=== PATIENT | female | born 1950 | race Caucasian/White ===

== ENCOUNTER 2018-06-29 01:29 | Outpatient (CLI) | payer MEDICARE, OTHER, SELFPAY ==
--- NOTE | 2018-06-29 10:42 | DI.MAMMO_ITS ---
SYMPTOM/DIAGNOSIS: SCREENING, Z12.31 MAMMOGRAMS: Mammograms were interpreted according to the usual protocol including computer analysis with CAD system, tomosynthesis and C view imaging. Comparison is made with exams from [id number]. The breasts are composed of extremely dense fibroglandular tissue, breast density, Category D. No suspicious masses or suspicious microcalcifications are seen. There has been no significant change. IMPRESSION: Category 1D, negative mammogram. Yearly screening mammography is recommended. [facility] ASSESSMENT OF FINDINGS: Negative. Category 1. Patient will receive a letter notifying them of these results. BI-RADS category D. The breasts are extremely dense, which lowers the sensitivity of mammography.
== END 2018-06-29 01:49 ==
PROVIDERS: PCP Family Medicine; Visit Provider Family Medicine
DX: Z12.31 Encounter for screening mammogram for malignant neoplasm of breast (principal)
CPT/HCPCS: 77063; 77067

== ENCOUNTER 2018-06-29 02:29 | Outpatient (CLI) | payer MEDICARE, OTHER, SELFPAY ==
[2018-06-29 12:44] LABS: ALT 21 U/L (12-78); AST 16 U/L (15-37); Albumin 3.9 g/dL (3.4-5.0); Alkaline Phosphatase 81 U/L (46-116); Anion Gap 7.7 mmol/L (3-11); BUN 15 mg/dL (7-18); Bilirubin, Total 0.3 mg/dL (0.2-1.0); CO2 29.3 mmol/L (21.0-32.0); CREATININE 1.02 mg/dL (0.55-1.02); Calcium 9.7 mg/dL (8.5-10.1); Chloride 98 mmol/L (98-107); Estimated GFR 53.58 (mL/min/1.73m2); Glucose 98 mg/dL (70-100); Potassium 4.1 mmol/L (3.5-5.1); Sodium 135 mmol/L (136-145); Total Protein 7.2 g/dL (6.4-8.2)
== END 2018-06-29 02:49 ==
PROVIDERS: PCP Family Medicine; Visit Provider Family Medicine
DX: I10 Essential (primary) hypertension (principal)
CPT/HCPCS: 36415; 80053

== ENCOUNTER 2019-06-11 00:27 | Outpatient (CLI) | payer MEDICARE, OTHER, SELFPAY ==
[2019-06-11 13:34] LABS: HGB 12.5 g/dL (12.0-15.5); Mean Corp. HGB Concentration 32.9 g/dL (32.0-36.0); Mean Corpuscular Hemoglobin 31.6 pg (27.0-33.0); Mean Platelet Volume 9.9 fL (8.0-11.0); Platelet Count 394 x1000/uL (130-400); RBC 3.96 m/cumm (4.00-5.20); RBC Distribution Width 13.2 % (11.7-14.6); White Blood Cell Count 11.19 k/cumm (4.4-10.8)
[2019-06-11 15:49] LABS: ALT 10 U/L (14-59); AST 17 U/L (15-37); Albumin 3.9 g/dL (3.4-5.0); Alkaline Phosphatase 74 U/L (46-116); Anion Gap 12.2 mmol/L (3-11); BUN 19 mg/dL (7-18); Bilirubin, Total 0.2 mg/dL (0.2-1.0); CO2 28.8 mmol/L (21.0-32.0); CREATININE 1.02 mg/dL (0.55-1.02); Calcium 9.5 mg/dL (8.5-10.1); Calculated LDL 108 mg/dL; Chloride 99 mmol/L (98-107); Cholesterol 226 mg/dL (<200); Estimated GFR 53.42 (mL/min/1.73m2); Glucose 94 mg/dL (74-106); HDL Cholesterol 74 mg/dL (40-60); Potassium 3.8 mmol/L (3.5-5.1); Sodium 140 mmol/L (136-145); Triglyceride 222 mg/dL (<150)
== END 2019-06-11 00:47 ==
PROVIDERS: PCP Family Medicine; Visit Provider Family Medicine
DX: I10 Essential (primary) hypertension (principal); K29.70 Gastritis, unspecified, without bleeding
CPT/HCPCS: 80053; 80061; 85027

== ENCOUNTER 2019-07-13 00:50 | Outpatient (CLI) | payer MEDICARE, OTHER, SELFPAY ==
--- NOTE | 2019-07-13 13:15 | DI.MAMMO_ITS ---
EXAM: MG MAMMO SCREENING CLINICAL HISTORY: screening Z12.39. TECHNIQUE: Bilateral full field digital CC and MLO mammographic images were obtained with 3D tomosyn thesis and utilizing computer aided detection (CAD). COMPARISON: 2010 through 2018 FINDINGS: Breast Density - Category D - Extremely dense Masses/Architectural Distortion: None seen. Microcalcifications: No suspicious pleomorphic-type are seen. Skin Thickening/Nipple Retraction: None. IMPRESSION: 1. No significant interval change with no specific features of malignancy noted. 2. Unless there is more urgent need, annual screening mammography is recommended, as per [place] [employer] guidelines. ACR BI-RAD Category- 1 Negative Breast Density Category D: The mammogram demonstrates the patient's breast tissue is dense. Dense tory ast tissue is very common and is not abnormal but dense breast tissue can make it harder to find canc er on a mammogram. Also, dense breast tissue may increase their breast cancer risk. This information about the result of the mammogram report was provided to the patient to raise their awareness. Use th is report when you speak with the patient about their risks for breast cancer, which includes their f amily history. At that time, you may recommend for more screening tests (Ultrasound or MRI) as they m ight be useful based on their risk. A negative radiographic report should not delay biopsy if a dominant or clinically suspicious mass is present. Up to ten percent of cancers are not identified on mammography. A negative report may reinforce clinical impression. Adenosis and dense breasts may obscure an underlying neoplasm. False positive reports average 6 to 10%.
== END 2019-07-13 01:10 ==
PROVIDERS: PCP Family Medicine; Visit Provider Family Medicine
DX: Z12.31 Encounter for screening mammogram for malignant neoplasm of breast (principal)
CPT/HCPCS: 77063; 77067

== ENCOUNTER 2020-06-13 03:18 | Outpatient (CLI) | payer MEDICARE, OTHER, SELFPAY ==
[2020-06-13 08:57] LABS: ALT 22 U/L (14-59); AST 15 U/L (15-37); Albumin 4.1 g/dL (3.4-5.0); Alkaline Phosphatase 82 U/L (46-116); Anion Gap 8.7 mmol/L (3-11); BUN 16 mg/dL (7-18); Bilirubin, Total 0.3 mg/dL (0.2-1.0); CO2 29.3 mmol/L (21.0-32.0); CREATININE 1.09 mg/dL (0.55-1.02); Calcium 9.9 mg/dL (8.5-10.1); Chloride 99 mmol/L (98-107); Estimated GFR 49.34 (mL/min/1.73m2); Glucose 96 mg/dL (74-106); Sodium 137 mmol/L (136-145); Total Protein 7.5 g/dL (6.4-8.2)
== END 2020-06-13 03:38 ==
PROVIDERS: PCP Family Medicine; Visit Provider Family Medicine
DX: I10 Essential (primary) hypertension (principal)
CPT/HCPCS: 36415; 80053

== ENCOUNTER 2020-07-14 02:43 | Outpatient (CLI) | payer MEDICARE, OTHER, SELFPAY ==
--- NOTE | 2020-07-14 07:00 | DI.MAMMO_ITS ---
EXAM: MAMMO SCREENING CLINICAL HISTORY: screening,Z12.39. TECHNIQUE: Bilateral full field digital CC and MLO mammographic images were obtained with 3D tomosyn thesis and utilizing computer aided detection (CAD). COMPARISON: Prior mammograms dating back to 2010, the most recent being June 2019. FINDINGS: The fibroglandular tissue is dense, this decreasing the sensitivity of the mammogram for finding in u nderlying lesions. Asymmetric tissue medially in the left breast is unchanged from prior studies. No new significant le ft breast findings. In the right breast there is a subtle suggestion of well-defined noncalcified nodular densities, best seen on MLO images and located approximately 2.5 centimetres in from the nipple. There are no spiculated masses nor malignant appearing microcalcification groups. Benign-appearing mi crocalcifications are again noted including a group posteriorly in the right breast. There is no sig nificant architectural distortion nor skin thickening-retraction. IMPRESSION: Dense bilateral fibroglandular tissue. No obvious radiographic evidence of malignancy in the left br east. Suggestion of nodular densities in the right breast as described above. Recommend breast ultr asound. BI-RADS Category 0 - Assessment Incomplete: Need additional imaging evaluation Breast Density - Category D - Extremely dense Breast density Category C or D implies that the patient has dense breast tissue. Dense breast tissue can make it harder to find cancer on a mammogram. Dense breast tissue is also associated with an incr eased risk of breast cancer. This information about the result of the mammogram report was provided to the patient to raise their awareness. Use this report when you speak with the patient about their risks for breast cancer, which includes their family history. At that time, you may recommend additional screening tests (Ultrasoun d or MRI) as these tests may add significant information. A negative radiographic report should not delay biopsy if a dominant or clinically suspicious mass is present. Up to ten percent of cancers are not identified on mammography. A negative report may reinforce clinical impression. Adenosis and dense breasts may obscure an underlying neoplasm. False positive reports average 6 to 10%. Patient will receive a letter notifying them of these results.
== END 2020-07-14 03:03 ==
PROVIDERS: PCP Family Medicine; Visit Provider Family Medicine
DX: Z12.31 Encounter for screening mammogram for malignant neoplasm of breast (principal); R92.8 Other abnormal and inconclusive findings on diagnostic imaging of breast
CPT/HCPCS: 77063; 77067

== ENCOUNTER 2020-07-18 01:02 | Outpatient (CLI) | payer MEDICARE, OTHER, SELFPAY ==
--- NOTE | 2020-07-18 | DI.MAMMO_ITS ---
EXAM: MG MAMMO SCREEN CALL BACK UNI and U/S breast RT limited CLINICAL HISTORY: F/U TO [facility] MAMMO, NODULAR DENSITY RT BREAST. TECHNIQUE: Craniocaudal and mediolateral oblique Full Field Digital Mammography views of the right b reast with Computer Aided Diagnosis followed by Tomosynthesis and right breast ultrasound. COMPARISON: Previous available for comparison. FINDINGS: Mammography/Tomosynthesis: Masses/Architectural Distortion: None seen. Microcalcifictions: No suspicious pleomorphic-type are seen. Skin Thickening/Nipple Retraction: None. Right breast US: Echotexture: Normal appearance of the glandular tissue. Shadowing: No suspicious foci. Cyst: None. Solid lesions: None seen. Ductal dilation: None. IMPRESSION: 1. No evidence of malignancy is noted. 2. Unless there is more urgent need, follow-up screening mammography is recommended, as per [place] [employer] guidelines. 3. The findings were discussed with the patient on the date of the examination. BI-RADS Category 1 - Negative Breast Density - Category D - Extremely dense Breast density Category C or D implies that the patient has dense breast tissue. Dense breast tissue can make it harder to find cancer on a mammogram. Dense breast tissue is also associated with an incr eased risk of breast cancer. This information about the result of the mammogram report was provided to the patient to raise their awareness. Use this report when you speak with the patient about their risks for breast cancer, which includes their family history. At that time, you may recommend additional screening tests (Ultrasoun d or MRI) as these tests may add significant information. A negative radiographic report should not delay biopsy if a dominant or clinically suspicious mass is present. Up to ten percent of cancers are not identified on mammography. A negative report may reinforce clinical impression. Adenosis and dense breasts may obscure an underlying neoplasm. False positive reports average 6 to 10%. Patient will receive a letter notifying them of these results.
== END 2020-07-18 01:03 | disposition home or self-care (01) ==
LOC: DI 01:04
PROVIDERS: PCP Family Medicine; Visit Provider Family Medicine
DX: R92.8 Other abnormal and inconclusive findings on diagnostic imaging of breast (principal)
CPT/HCPCS: 76642; 77063; 77067

== ENCOUNTER 2021-04-03 02:37 | Outpatient (CLI) | payer MEDICARE, OTHER, SELFPAY ==
[2021-04-03 08:15] LABS: HCT 37.3 % (36.0-46.0); HGB 11.9 g/dL (11.2-15.7); MCH 30.4 pg (27.0-33.0); MCHC 31.9 % (32.0-36.0); MCV 95.2 fL (80-95); MPV 9.7 fL (8.0-11.0); Platelet Count 373 10^3/uL (130-400); RBC 3.92 10^6/uL (3.93-5.22); RDW 12.8 % (11.7-14.6); RDW-SD 44.1 fL
[2021-04-03 09:34] LABS: ALT 20 U/L (14-59); AST 13 U/L (15-37); Alkaline Phosphatase 78 U/L (46-116); Anion Gap 7.9 mmol/L (3-11); BUN 16 mg/dL (7-18); Bilirubin, Total 0.3 mg/dL (0.2-1.0); CO2 29.1 mmol/L (21.0-32.0); CREATININE 1.2 mg/dL (0.55-1.02); Calcium 9.7 mg/dL (8.5-10.1); Chloride 102 mmol/L (98-107); Estimated GFR 44.04 (mL/min/1.73m2); Glucose 93 mg/dL (74-106); Sodium 139 mmol/L (136-145); Total Protein 7.1 g/dL (6.4-8.2)
== END 2021-04-03 02:38 | disposition home or self-care (01) ==
LOC: LBO 02:37
PROVIDERS: PCP Family Medicine; Visit Provider Family Medicine
DX: I10 Essential (primary) hypertension (principal); E78.5 Hyperlipidemia, unspecified
CPT/HCPCS: 36415; 80053; 85027

== ENCOUNTER 2021-04-10 00:42 | Outpatient (CLI) | payer MEDICARE, OTHER, SELFPAY ==
--- NOTE | 2021-04-10 08:19 | DI.RAD_ITS ---
Exam(s) XR SHOULDER RT COMPLETE 2+V EXAM: XR SHOULDER RT COMPLETE 2+V CLINICAL HISTORY: r shoulder pain,m25.511. TECHNIQUE: 2D digital imaging was performed. COMPARISON: No exams were available for comparison FINDINGS: BONES: No acute fracture or old fracture deformity is present. No bony destructive lesion is seen. JOINTS: No dislocation present. Mild spurring AC joint. Moderate spurring glenoid. Mild spurring m argin of humeral head. SOFT TISSUE: Normal. IMPRESSION: Degenerative changes. DATA REPOSITORY: RADIATION DOSE DELIVERED:
== END 2021-04-10 01:02 ==
PROVIDERS: PCP Family Medicine; Visit Provider Family Medicine
DX: M25.511 Pain in right shoulder (principal); M19.011 Primary osteoarthritis, right shoulder
CPT/HCPCS: 73030

== ENCOUNTER 2021-08-08 00:27 | Outpatient (CLI) | payer MEDICARE, OTHER, SELFPAY ==
--- NOTE | 2021-08-08 08:18 | DI.MAMMO_ITS ---
Exam(s) MAMMO SCREENING EXAM: MAMMO SCREENING CLINICAL HISTORY: screening,z12.39. TECHNIQUE: Bilateral full field digital CC and MLO mammographic images were obtained with 3D tomosyn thesis and utilizing computer aided detection (CAD). COMPARISON: 2011 through 2020 FINDINGS: Masses/Architectural Distortion: None seen. Microcalcifications: No suspicious pleomorphic-type are seen. Skin Thickening/Nipple Retraction: None. IMPRESSION: 1. No significant interval change with no specific features of malignancy noted. 2. Unless there is more urgent need, annual screening mammography is recommended, as per [place] [employer] guidelines. BI-RADS Category 1-negative Breast Density - Category D - extremely dense Breast Density Category D: The mammogram demonstrates the patient's breast tissue is dense. Dense tory ast tissue is very common and is not abnormal but dense breast tissue can make it harder to find canc er on a mammogram. Also, dense breast tissue may increase their breast cancer risk. This information about the result of the mammogram report was provided to the patient to raise their awareness. Use th is report when you speak with the patient about their risks for breast cancer, which includes their f amily history. At that time, you may recommend for more screening tests (Ultrasound or MRI) as they m ight be useful based on their risk. A negative radiographic report should not delay biopsy if a dominant or clinically suspicious mass is present. Up to ten percent of cancers are not identified on mammography. A negative report may reinforce clinical impression. Adenosis and dense breasts may obscure an underlying neoplasm. False positive reports average 6 to 10%.
== END 2021-08-08 00:47 ==
PROVIDERS: PCP Family Medicine; Visit Provider Family Medicine
DX: Z12.31 Encounter for screening mammogram for malignant neoplasm of breast (principal); R92.8 Other abnormal and inconclusive findings on diagnostic imaging of breast
CPT/HCPCS: 77063; 77067

== ENCOUNTER 2022-08-26 03:10 | Outpatient (CLI) | payer MEDICARE, SELFPAY ==
[2022-08-26 16:47] LABS: ALT 18 U/L (14-59); AST 16 U/L (15-37); Alkaline Phosphatase 89 U/L (46-116); BUN 25 mg/dL (7-18); Bilirubin, Total 0.2 mg/dL (0.2-1.0); CREATININE 1.2 mg/dL (0.55-1.02); Calcium 9.6 mg/dL (8.5-10.1); Chloride 100 mmol/L (98-107); Glucose 146 mg/dL (74-106); Potassium 4.5 mmol/L (3.5-5.1); Sodium 136 mmol/L (136-145); Total Protein 6.8 g/dL (6.4-8.2)
== END 2022-08-26 03:11 | disposition home or self-care (01) ==
LOC: LBO 03:10
PROVIDERS: PCP Family Medicine; Visit Provider Family Medicine
DX: I10 Essential (primary) hypertension (principal)
CPT/HCPCS: 36415; 80053

== ENCOUNTER 2022-09-04 02:19 | Outpatient (CLI) | payer MEDICARE, SELFPAY ==
--- NOTE | 2022-09-04 12:03 | DI.MAMMO_ITS ---
Exam(s) MAMMO SCREENING EXAM: MAMMO SCREENING CLINICAL HISTORY: screening,z12.39 TECHNIQUE: Bilateral full field digital CC and MLO mammographic images were obtained with 3D tomosyn thesis and utilizing computer aided detection (CAD). COMPARISON: Available for comparison. FINDINGS: Masses/Architectural Distortion: None seen. Microcalcifications: No suspicious pleomorphic-type are seen. Skin Thickening/Nipple Retraction: None. IMPRESSION: 1. No significant interval change with no specific features of malignancy noted. 2. Unless there is more urgent need, screening mammography is recommended, as per [place] [employer] guidelines. BI-RADS Category 1 - Negative Breast Density - Category D - Extremely dense Breast density category C or D implies that the patient has dense breast tissue. Dense breast tissue is very common and is not abnormal but dense breast tissue can make it harder to find cancer on a ma mmogram. Also, dense breast tissue may increase their breast cancer risk. This information about the result of the mammogram report was provided to the patient to raise their awareness. Use this report when you speak with the patient about their risks for breast cancer, which includes their family hist ory. At that time, you may recommend for more screening tests (Ultrasound or MRI) as they might be us eful based on their risk. A negative radiographic report should not delay biopsy if a dominant or clinically suspicious mass is present. Up to ten percent of cancers are not identified on mammography. A negative report may reinforce clinical impression. Adenosis and dense breasts may obscure an underlying neoplasm. False positive reports average 6 to 10%. Patient will receive a letter notifying them of these results.
== END 2022-09-04 02:39 ==
LOC: DI 02:19
PROVIDERS: PCP Family Medicine; Visit Provider Family Medicine
DX: Z12.31 Encounter for screening mammogram for malignant neoplasm of breast (principal)
CPT/HCPCS: 77063; 77067

== ENCOUNTER 2022-10-11 00:25 | Outpatient (CLI) | payer MEDICARE, SELFPAY ==
--- NOTE | 2022-10-11 06:45 | DI.DEXA_ITS ---
Exam(s) XR DEXA BONE DENSITY W/WO LEA EXAM: XR DEXA BONE DENSITY W/WO LEA CLINICAL HISTORY: SCREENING FOR OSTEOPOROSIS IN POSTMENOPAUSAL WOMAN,Z78.0 TECHNIQUE: [employer] C densitometer analysis of the lumbar spine and left forearm. Lateral s urvey image of the thoracic and lumbar spine. COMPARISON: 2007 FINDINGS: Lateral view of the thoracic and lumbar spine shows no evidence of compression fractures. Bone mineral density measurements of the lumbar spine correspond to a total T-score of 1.2, in the n ormal range. This represents a 5.4 percent increase compared with 2008. The left forearm bone mineral density measurements correspond to a T-score of the distal 3rd of -0.6 , in the normal range. This represents a 7.7 percent decrease compared with 2008.. IMPRESSION: Normal bone mineral density.
== END 2022-10-11 00:45 ==
LOC: DI 00:25
PROVIDERS: PCP Family Medicine; Visit Provider Family Medicine
DX: Z78.0 Asymptomatic menopausal state (principal)
CPT/HCPCS: 77080

== ENCOUNTER 2023-03-17 08:26 | Outpatient (CLI) | payer MEDICARE, SELFPAY ==
[2023-03-17 12:50] LABS: HCT 37.5 % (36.0-46.0); HGB 12.1 g/dL (11.2-15.7); MCH 30.9 pg (27.0-33.0); MCHC 32.3 % (32.0-36.0); MCV 96 fL (80-95); MPV 10.5 fL (8.0-11.0); Platelet Count 396 10^3/uL (130-400); RBC 3.92 10^6/uL (3.93-5.22); RDW 13.4 % (11.7-14.6); RDW-SD 47.6 fL; WBC 10.33 10^3/uL (4.4-10.8)
[2023-03-17 13:07] LABS: Iron 94 ug/dL (50-170)
[2023-03-17 13:29] LABS: Hemoglobin A1C 6.1 % (<5.7)
[2023-03-17 13:33] LABS: ALT 19 U/L (14-59); AST 17 U/L (15-37); Albumin 3.9 g/dL (3.4-5.0); Alkaline Phosphatase 86 U/L (46-116); Anion Gap 8.2 mmol/L (3-11); BUN 24 mg/dL (7-18); Bilirubin, Total 0.3 mg/dL (0.2-1.0); CO2 25.8 mmol/L (21.0-32.0); CREATININE 1.2 mg/dL (0.55-1.02); Calcium 9.7 mg/dL (8.5-10.1); Chloride 97 mmol/L (98-107); Estimated GFR 47.21 (mL/min/1.73m2); Ferritin 34 ng/mL (8-252); Glucose 97 mg/dL (74-106); Potassium 3.7 mmol/L (3.5-5.1); Sodium 131 mmol/L (136-145); TSH (W/Ref FT4) 1.55 uIU/mL (0.36-3.74); Total Protein 7.4 g/dL (6.4-8.2); Vitamin B12 479 pg/mL (193-986)
== END 2023-03-17 08:27 | disposition home or self-care (01) ==
LOC: LOS 08:27
PROVIDERS: PCP Family Medicine; Referring Provider Family Medicine; Visit Provider Family Medicine
DX: E11.9 Type 2 diabetes mellitus without complications (principal); G62.9 Polyneuropathy, unspecified; I10 Essential (primary) hypertension; E03.9 Hypothyroidism, unspecified
CPT/HCPCS: 36415; 80053; 85027; 82607; 82728; 83036; 83540; 84443

== ENCOUNTER 2023-05-13 03:32 | Outpatient (CLI) | payer MEDICARE, SELFPAY ==
[2023-05-13 12:21] LABS: ALT 25 U/L (14-59); AST 23 U/L (15-37); Albumin 3.8 g/dL (3.4-5.0); Alkaline Phosphatase 89 U/L (46-116); Anion Gap 9.9 mmol/L (3-11); BUN 12 mg/dL (7-18); Bilirubin, Total 0.4 mg/dL (0.2-1.0); CO2 27.1 mmol/L (21.0-32.0); Calcium 9.9 mg/dL (8.5-10.1); Chloride 100 mmol/L (98-107); Estimated GFR 58.75 (mL/min/1.73m2); Glucose 95 mg/dL (74-106); Hemoglobin A1C 5.6 % (<5.7); Potassium 3.8 mmol/L (3.5-5.1); Sodium 137 mmol/L (136-145); Total Protein 7.2 g/dL (6.4-8.2)
== END 2023-05-13 03:33 | disposition home or self-care (01) ==
PROVIDERS: PCP Family Medicine; Visit Provider Family Medicine
DX: I10 Essential (primary) hypertension (principal); E11.9 Type 2 diabetes mellitus without complications
CPT/HCPCS: 36415; 80053; 83036

== ENCOUNTER → 2023-08-06 00:40 | Outpatient (CLI) | payer MEDICARE, SELFPAY ==
--- NOTE | 2023-08-06 13:47 | DI.RAD_ITS ---
Exam(s) XR FOOT LT COMPLETE EXAM: XR FOOT LT COMPLETE CLINICAL HISTORY: lt foot painful bunion,M79.672,M21.612. TECHNIQUE: 2D digital imaging was performed. COMPARISON: No exams were available for comparison FINDINGS: 3 views No evidence of acute fracture or diastasis of the Lisfranc joint. Hallux valgus noted. Mild narrowi ng of the great toe metatarsophalangeal joint. No prominent osteophytes. Other articulations unrema rkable. No erosions. No osseous lesions. Enthesophyte is noted on the posterior calcaneus at the A chilles insertion site. There is no inferior calcaneal spur. IMPRESSION: Polyps valgus. DATA REPOSITORY: RADIATION DOSE DELIVERED:
== END ==
PROVIDERS: PCP Family Medicine; Visit Provider Podiatrist
DX: M79.672 Pain in left foot (principal); M21.612 Bunion of left foot
CPT/HCPCS: 73630

== ENCOUNTER 2023-08-12 03:16 | Outpatient (CLI) | payer MEDICARE, SELFPAY ==
[2023-08-12 11:48] LABS: Vitamin B12 1660 pg/mL (193-986)
== END 2023-08-12 03:17 | disposition home or self-care (01) ==
PROVIDERS: PCP Family Medicine; Visit Provider Podiatrist
DX: R79.89 Other specified abnormal findings of blood chemistry (principal); R20.2 Paresthesia of skin; G62.9 Polyneuropathy, unspecified
CPT/HCPCS: 36415; 82607

== ENCOUNTER → 2023-09-08 02:45 | Outpatient (CLI) | payer MEDICARE, SELFPAY ==
--- NOTE | 2023-09-08 12:55 | DI.MAMMO_ITS ---
Exam(s) MAMMO SCREENING EXAM: MAMMO SCREENING CLINICAL HISTORY: screening,z12.39. TECHNIQUE: Bilateral full field digital CC and MLO mammographic images were obtained with 3D tomosyn thesis and utilizing computer aided detection (CAD). COMPARISON: 2013 through 2022 FINDINGS: Masses: None seen. Architectural Distortion: None seen. Microcalcifications: No suspicious pleomorphic-type are seen. Skin Thickening/Nipple Retraction: None. IMPRESSION: 1. No significant interval change with no specific features of malignancy noted. 2. Unless there is more urgent need, annual screening mammography is recommended, as per [place] [employer] guidelines. BI-RADS Category 1-negative Breast Density - Category D - extremely dense Breast Density Category D: The mammogram demonstrates the patient's breast tissue is dense. Dense tory ast tissue is very common and is not abnormal but dense breast tissue can make it harder to find canc er on a mammogram. Also, dense breast tissue may increase their breast cancer risk. This information about the result of the mammogram report was provided to the patient to raise their awareness. Use th is report when you speak with the patient about their risks for breast cancer, which includes their f amily history. At that time, you may recommend for more screening tests (Ultrasound or MRI) as they m ight be useful based on their risk. A negative radiographic report should not delay biopsy if a dominant or clinically suspicious mass is present. Up to ten percent of cancers are not identified on mammography. A negative report may reinforce clinical impression. Adenosis and dense breasts may obscure an underlying neoplasm. False positive reports average 6 to 10%.
== END ==
PROVIDERS: PCP Family Medicine; Visit Provider Family Medicine
DX: Z12.31 Encounter for screening mammogram for malignant neoplasm of breast (principal)
CPT/HCPCS: 77063; 77067

== ENCOUNTER 2024-01-08 12:17 | Outpatient (REF) | payer MEDICARE, SELFPAY ==
--- NOTE | 2024-01-08 11:20 | SKI_PTH ---
PATIENT: Patricia Rice LOC: [place] U#:[id number] AGE/SX: 73/F ROOM: RE01/08/[address]: Marcy Tabor MD, DC : 1950 BED: DIS: 01/08/2024 SPEC #: [id number] RECD: 01/08/24 12:54 STATUS: SEUN REQ #: [id number] CEM: 01/08/24 11:[address]: Marcy Tabor DEPT: Surgical Specimen RECD BY: Symone Garvin Tissues: 1 - SKIN BIOPSY(SHAVE/PUNCH) Procedures: SKIN LEVEL 4 Comments: [id number]
--- OUTSIDE RECORDS SUMMARY | 2024-01-08 12:19 | XMS_ITS | Encounter Summary ---
[place] [address] Care Team Providers Care Development Expert Name Role Phone Marcy Tabor MD Primary Care Provider [phone] Reason for Visit * Auth/Cert Specialty Diagnoses / Procedures Referred By Dain vasquez Referred To Contact Diagnoses Prolapse of female pelvic organs Stress urinary incontinence Procedures PRO REMV FASCIA FOR GRAFT STRIPPER PRO CLOSURE OF VAGINA PRO POST COLPORRHAPHY, RECTUM/VAGINA PRO SLING OPER STRES INCONTINENCE FASCIA MARÍA GRAFT, BY STRIPPER (WRVU 5.51) COLPOCLEISIS\ [place] (WRVU 8.28) COLPORRHAPHY, POST RECTOCELE WITH OR W\O PERINEORRHAPHY (WRVU 11.5) URETHRAL SUSPENSION, SLING\FASCIA OR SYNTHETIC (WRVU 12.13) Referral ID Status Reason Start Date Expiration Date Visits Re quested Visits Authorized [id number] 1 1 Encounter Details Date Type Department Care Team (Late st Contact Info) Description 12/20/2020 3:06 PM EDT Anesthesia [place] [phone] June Travis MD [facility] [place] [address] Kaushik Hough MD [facility] [place]ESTHESIOLOG[place] [address] Anesthesia Record Procedure Summary Procedure Name Responsible Anesthesiologist Anesthesia Start Time Anesthesia Stop Time COLPOCLEISIS\ LE FORT (WRVU 8.28) (Perineum) June Travis MD 12/20/20 1506 12/20/20 1825 Events Date Time Event Comment 12/20/2020 1438 1506 AN Verify 1506 Start 1506 An Start Data 1512 An Induction 1527 An Intubation 1529 Anesthesia Ready 1533 Procedure Start 1533 Quick Note Main computer n ot functioning, so using a laptop for data clerk, which has difficulty dowloading data from the Monica monitor. In addition, our Monica monitor reset and I cannot retrieve vital data from 1506 until 1535. Placed a call to [facility] for support. 180 Extubation/LMA Out 180 an stop data 1824 Recovery or ICU Handoff Shannon ent care was transferred to the destination unit staff after review of the patient's medical history, current anesthetic/surgical status and plan, according to the Provider Handoff Checklist. 1824 Stop Meds Name Total Midazolam 2 mg fentaNYL 100 mcg IV Lidocaine 60 mg Propofol 260 mg Rocuronium 40 mg PHENYLephrine 320 mcg ePHEDrine 10 mg Ondansetron 4 mg Dexamethasone 8 mg Neostigmine 4 mg Glycopyrrolate 0.6 mg ceFAZolin (Ancef) 2 g in dextrose 5% 100 mL infusion 2 g HYDROmorphone 0.8 mg lactated ringers infusion 650 mL * Agents Name O2 Air N2O Sevoflurane (et) * Blood No blood administrations on file. Lines, Drains, and Airways Type Details Placement Removal (RETIRED) Peripheral IV Line - Single Lumen 12/20/20; 1402; cephalic vein (lateral side of arm), left; [id number] catheter system; Anatomical Landmarks; 18 gauge; Jl CASEY; distraction, tolerated well, appears comfortable; 12/21/20; 0842 12/20/20 1402 by aDnial Ma, JACINTO 12/21/20 0842 by Layla Fuentes LPN ETT Mask Ventilation: Ea sy (1); ETT Type: Oral, Cuffed; ETT Size: 7 mm; Mac Blade: 3; Exchange: Bougie; Notes: Asleep, Cricoid Pressure, Pre-O2; Attempts: 1; Laryngoscopy Grade: 3; ETT Placement Verified By: Capnometry, Visual; Inserted by: Zack KAMINSKI; Removal Date: 12/20/20; Removal Time: 18012/20/20 1527 by Kaushik Hough MD 12/20/20 1809 by Mariella Sanchez, RN Urethral Catheter 12/20/20; 1535; Genitourinary surgery, Physician order; latex; 14; inserted at this facility; 1; 10; 10; 12/21/20; 0549 12/20/20 1535 by Awa Patterson RN 12/21/20 0549 by Ashlyn King RN documented in this encounter Social History Tobacco Use Types Packs/Day Years Used Date Smoking Tobacco: Never Smokeless Tobacco: Never Alcohol Use Standard Drinks/Week Comments Never 0 (1 standard drink = 0.6 oz pur e alcohol) Sex and Gender Information Value Date Recorded Sex Assigned at Not on file Gender Identity Not on file Sexual Orientation Not on file documented as of this encounter OR Notes * Anesthesia Postprocedure Evaluation - Kaushik Hough MD - 12/20/2020 6:25 PM EDT Department of Anesthesiology Post-procedure Note Patient: Patricia Rice Procedure Summary Date: 12/20/20 Room / Location: [address] MAIN OR Anesthesia Start: 1506 Anesthesia Stop: 1824 Procedures: COLPOCLEISIS\ LE FORT (WRVU 8.28) (N/A Perineum) COLPORRHAPHY, POST RECTOCELE WITH OR W\O PERINEORRHAPHY (WRVU 11.5) (N/A ) URETHRAL SUSPENSION, SLING\FASCIA OR SYNTHETIC (WRVU 12.13) (N/A Pelvis) Diagnosis: (Stress urinaryincontinence) Surgeons: Timur Burns MD Responsible Provider: June Travis MD Anesthesia Type: general ASA Status: 2 All Anesthesia Providers: Anesthesiologist: Daniel Dixon MD; June Travis MD Student Development Specialist: Kaushik Hough MD Vitals Value Taken Time BP 118/42 12/20/20 1815 Temp 36.2 ??C (97.2 ??F) 12/20/20 1811 Pulse 68 12/20/20 1825 Resp 9 12/20/20 1825 SpO2 99 % 12/20/20 1825 Pain Level Vitals shown include unvalidated device data. Patient Location: PACU/[facility] Level of Consciousness: Conscious but Sleepy Pain Management: Satisfactory Analgesia PONV: None Cardiovascular Status: At Baseline and Hemodynamically Stable Respiratory Status: At Baseline and Supplemental O2 (NC or FM) Postoperative Fluid Status: Intravascular EUvolemia Possible Anesthetic Complications: NONE apparent at time of evaluation Final Primary Anesthesia Type: General (The anesthetic type performed was the same as planned.) Comments: Kaushik Hough MD * Anesthesia Preprocedure Evaluation - Daniel Dixon MD - 12/19/2020 3:51 PM EDT Pre-Anesthesia Evaluation for: Patricia Rice a 70 y.o. female. Procedure(s): FASCIA MARÍA GRAFT, BY STRIPPER (WRVU 5.51) COLPOCLEISIS\ LE FORT (WRVU 8.28) COLPORRHAPHY, POST RECTOCELE WITH OR W\O PERINEORRHAPHY (WRVU 11.5) URETHRAL SUSPENSION, SLING\FASCIA OR SYNTHETIC (WRVU 12.13) Patient Active Problem List Diagnosis ??? History of SCC (squamous cell carcinoma) of skin ??? AK (actinic keratosis) ??? Chavez's disease ??? Actinic keratosis Past Medical History: Diagnosis Date ??? Basal cell carcinoma (BCC) ??? GERD (gastroesophageal reflux disease) ??? HTN (hypertension) ??? Hyperlipidemia ??? Osteoarthritis Past Surgical History: Procedure Laterality Date ??? TOTAL HIP ARTHROPLASTY Social History Tobacco Use ??? Smoking status: Never Smoker ??? Smokeless tobacco: Never Used Substance Use Topics ??? Alcohol use: Not on file Social History Substance and Sexual Activity Drug Use Not on file No Known Allergies Medications: MAR and/or home medications have been reviewed. Physical Exam: Preprocedure Vitals Current as of 12/19/20 1551 No BP, pulse, respiration, SpO2, or temperature recorded. Height: 165.1 cm (5' 5) (10/20/20) Weight: 59 kg (130 lb) (10/20/20) BMI: 21.63 IBW: 57 kg (125 lb 10.6 oz) Airway Assessment: Mallampati: II TM distance: >3 FB Neck ROM: full Cardiovascular Assessment: system normal Pulmonary Assessment: pulmonary exam normal Dental Assessment: Misc Assessment: IV access: Peripheral line Last Filed Perioperative Cognitive Screening None Anesthesia Plan: ASA 2 general, with a(n) intravenous induction 70 y.o., 59 kg (BMI of 21) female with stress incontinence presenting for fascia maría graft, [place] colpocleisis. PMH significant for HTN, HLD, BCC, and osteoarthritis. Anesthetic hx: No reported prior complications with anesthesia Airway hx: no records Allergies: No Known Allergies NPO Status: Appropriate Anesthetic Plan: GA with LMA/ETT Standard ASA monitoring Adequate IV access Attending addendum (MD Dixon) Agree with above. NPO OK. No problems with anesthesia in the past (had both hips replaced) Region - Other Informed Consent: Anesthetic plan and risks discussed with patient. Plan discussed with SENIOR RUBY DEVELOPER. Anesthesia Screening documented in this encounter Plan of Treatment Upcoming Encounters Date Type Department Care Team (Late st Contact Info) Description 04/09/2024 2:00 PM EDT Office Visit Dermatology at [place] [address] [place] [phone] Mark Moreira MD [address] [facility] [place] [address] documented as of this encounter Visit Diagnoses Not on filedocumented in this encounter Administered Medications Inactive Administered Medications - up to 3 most recent administrations Medication Order MAR Action Action Date Dose Rate Site ceFAZolin (Ancef) 2 g in dextrose 5% 100 mL infusion 2 g, Intravenous, ONCE, 1 dose, On Fri12/20/20 at 1415, Administer over 30 Minutes, Belt Builder to OR Infuse over 30 minutes., Day of Surgery (Day of Procedure), Indication for (Active or Suspected): Prophylaxis Given 12/20/2020 3:29 PM EDT 2 g dexamethasone (Decadron) injection Intravenous, PRN, Starting on Fri12/20/20 at 1631, Until Fri12/20/20 at 1825, Anesthesia Intra-op, Routine Given 12/20/2020 4:31 PM EDT 8 mg ePHEDrine sulfate (5 mg/mL) multi-dose injection Intravenous, PRN, Starting on Fri12/20/20 at 1549, Until Fri12/20/20 at 1825, Anesthesia Intra-op, Routine Given 12/20/2020 3:49 PM EDT 10 mg fentaNYL (pf) (50 mcg/mL) multi-dose injection Intravenous, PRN, Starting on Fri12/20/20 at 1512, Until Fri12/20/20 at 1825, Anesthesia Intra-op, Routine Given 12/20/2020 3:12 PM EDT 100 mcg glycopyrrolate (Robinul) (0.2 mg/mL) multi-dose injection Intravenous, PRN, Starting on Fri12/20/20 at 1716, Until Fri12/20/20 at 1825, Anesthesia Intra-op, Routine Given 12/20/2020 5:16 PM EDT 0.6 mg HYDROmorphone (Dilaudid) (2 mg/mL) multi-dose injection solution Intravenous, PRN, Starting on Fri12/20/20 at 1722, Until Fri12/20/20 at 1825, Anesthesia Intra-op, Routine Given 12/20/2020 5:38 PM EDT 0.2 mg Given 12/20/2020 5:36 PM EDT 0.2 mg Given 12/20/2020 5:34 PM EDT 0.2 mg lactated ringers infusion 1,000 mL, at 100 mL/hr, Intravenous, CONTINUOUS, Starting on Fri12/20/20 at 1415, Until Fri12/20/20 at 1959, Day of Surgery (Day of Procedure) New Bag 12/20/2020 4:42 PM EDT New Bag 12/20/2020 2:04 PM EDT 1,000 mLs 100 mL/hr lidocaine (pf) (Xylocaine) (20 mg/mL) 2% injection syringe Intravenous, PRN, Starting on Fri12/20/20 at 1512, Until Fri12/20/20 at 1825, Anesthesia Intra-op, Routine Given 12/20/2020 3:12 PM EDT 60 mg midazolam (pf) (Versed) (1 mg/mL) multi-dose injection Intravenous, PRN, Starting on Fri12/20/20 at 1503, Until Fri12/20/20 at 1825, Anesthesia Intra-op, Routine Given 12/20/2020 3:12 PM EDT 1 mg Given 12/20/2020 3:03 PM EDT 1 mg neostigmine (Bloxiver) (1 mg/mL) injection Intravenous, PRN, Starting on Fri12/20/20 at 1716, Until Fri12/20/20 at 1825, Anesthesia Intra-op, Routine Given 12/20/2020 5:16 PM EDT 4 mg ondansetron (pf) (Zofran) (2 mg/mL) injection Intravenous, PRN, Starting on Fri12/20/20 at 1718, Until Fri12/20/20 at 1825, Anesthesia Intra-op, Routine Given 12/20/2020 5:18 PM EDT 4 mg PHENYLephrine in NS (PF) (ANA PAULA-SYNEPHRINE) 0.8 mg/10 mL (80 mcg/mL) multi-dose injection Syrg Intravenous, PRN, Starting on Fri12/20/20 at 1558, Until Fri12/20/20 at 1825, Anesthesia Intra-op, Routine Given 12/20/2020 5:07 PM EDT 80 mcg Given 12/20/2020 4:53 PM EDT 160 mcg Given 12/20/2020 3:58 PM EDT 80 mcg propofoL (Diprivan) 10 mg/mL bolus injection (Anesthesia) Intravenous, PRN, Starting on Fri12/20/20 at 1527, Until Fri12/20/20 at 1825, Anesthesia Intra-op Given 12/20/2020 5:41 PM EDT 10 mg Given 12/20/2020 5:33 PM EDT 50 mg Given 12/20/2020 3:12 PM EDT 200 mg rocuronium (Zemuron) (10 mg/mL) multi-dose injection Intravenous, PRN, Starting on Fri12/20/20 at 1527, Until Fri12/20/20 at 1825, Anesthesia Intra-op, Routine Given 12/20/2020 3:12 PM EDT 40 mg documented in this encounter Care Teams Development Expert Relationship Specialty Start Date End Date Marcy Tabor MD [address] [facility] [address] [place] [address] PCP - General 06/18/11 documented as of this encounter
--- OUTSIDE RECORDS SUMMARY | 2024-01-08 12:19 | XMS_ITS | Encounter Summary ---
[place] [address] Care Team Providers Care Jewel Supervisor Name Role Phone Marcy Tabor MD Primary Care Provider [phone] Reason for Visit * Reason Comments Follow-up Skin Check Encounter Details Date Type Department Care Team (Late st Contact Info) Description 04/14/2017 1:15 PM EDT Office Visit Dermatology at [address] [phone] Mark Moreira MD [address] [place] [address] DERMATOLOGY [place], [place] [id number] History of SCC (squamous cell carcinoma) of skin; AK (actinic keratosis) Social History Tobacco Use Types Packs/Day Years Used Date Smoking Tobacco: Never Smokeless Tobacco: Never Sex and Gender Information Value Date Recorded Sex Assigned at Not on file Gender Identity Not on file Sexual Orientation Not on file documented as of this encounter Progress Notes * Mark Moreira MD - 04/14/2017 1:15 PM EDT PROBLEM: 1. Repeat skin checkup. 2. 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 3. 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 aPtricia follows up and continues to enjoy intermediate from Hers. She has got a few new spots on her hands. Physical examination reveals actinic keratoses present, 3 over the right dorsal hand, none on the left. She has excellent resolution and healing of the above 2 superficial skin cancer treatment sites on her face. Examination of the face and distal hands is otherwise benign. ASSESSMENT/PLAN: 1. Actinic keratoses. a. LN2 x2 applied to each of 3 sites. 2. History of nonmelanoma cutaneous malignancies. a. No evidence of recurrence. Return to clinic now will be p.r.n. CC: Marcy Tabor MD documented in this encounter Plan of Treatment Upcoming Encounters Date Type Department Care Team (Late st Contact Info) Description 04/09/2024 2:00 PM EDT Office Visit Dermatology at [address] [place] [phone] Mark Moreira MD [address] [place] [address] [place] [address] documented as of this encounter Visit Diagnoses Diagnosis History of SCC (squamous cell carcinoma) of skin Personal history of other malignant neoplasm of skin AK (actinic keratosis) Actinic keratosis documented in this encounter Care Teams Jewel Supervisor Relationship Specialty Start Date End Date Macry Tabor MD [address] [facility] 1 [place] [address] PCP - General 06/18/11 documented as of this encounter
--- OUTSIDE RECORDS SUMMARY | 2024-01-08 12:19 | XMS_ITS | Encounter Summary ---
[place] [address] Care Team Providers Care Plastic Sewer Name Role Phone Marcy Tabor MD Primary Care Provider [phone] Encounter Details Date Type Department Care Team (Late Contact Info) Description 11/05/2021 Telephone Dermatology at [address] [phone] Rin Hogan LPN Social History Tobacco Use Types Packs/Day Years Used Date Smoking Tobacco: Never Smokeless Tobacco: Never Alcohol Use Standard Drinks/Week Comments Never 0 (1 standard drink = 0.6 oz pur e alcohol) Sex and Gender Information Value Date Recorded Sex Assigned at Not on file Gender Identity Not on file Sexual Orientation Not on file documented as of this encounter Miscellaneous Notes * Telephone Encounter - Rin Hogan LPN - 11/05/2021 1:12 PM EDT 10/26/21 Shave biopsy right dorsal hand Dx: SCCa, no further treatment necessary, return to clinic 11/27/21 & 04/29/22 Reviewed biopsy report and Dr. Samayao recommendation with patient. She voiced understanding. documented in this encounter Plan of Treatment Upcoming Encounters Date Type Department Care Team (Late st Contact Info) Description 04/09/2024 2:00 PM EDT Office Visit Dermatology at [place] [address] [place] [address] Mark Moreira MD [address] [facility] [place] [address] documented as of this encounter Visit Diagnoses Not on filedocumented in this encounter Care Teams Plastic Sewer Relationship Specialty Start Date End Date Marcy Tabor MD [address] [facility] 1 [place] [address] PCP - General 06/18/11 documented as of this encounter
--- OUTSIDE RECORDS SUMMARY | 2024-01-08 12:19 | XMS_ITS | Encounter Summary ---
[place] [address] Care Team Providers Care Commercial Photographer Name Role Phone Marcy Tabor MD Primary Care Provider [phone] Encounter Details Date Type Department Care Team (Late st Contact Info) Description 01/30/2021 Telephone Obstetrics [place] [address] Sales, Thalia M Social History Tobacco Use Types Packs/Day Years Used Date Smoking Tobacco: Never Smokeless Tobacco: Never Alcohol Use Standard Drinks/Week Comments Never 0 (1 standard drink = 0.6 oz pur e alcohol) Sex and Gender Information Value Date Recorded Sex Assigned at Not on file Gender Identity Not on file Sexual Orientation Not on file documented as of this encounter Plan of Treatment Upcoming Encounters Date Type Department Care Team (Late st Contact Info) Description 04/09/2024 2:00 PM EDT Office Visit Dermatology at [place] [address] [facility] [place] [address] Mark Moreira MD [address] [facility] [place] [address] documented as of this encounter Visit Diagnoses Not on filedocumented in this encounter Care Teams Commercial Photographer Relationship Specialty Start Date End Date Marcy Tabor MD [address] [place] [address] [place] [address] PCP - General 06/18/11 documented as of this encounter
--- OUTSIDE RECORDS SUMMARY | 2024-01-08 12:19 | XMS_ITS | Encounter Summary ---
[place] [address] Care Team Providers Care Sound Technician Supervisor Name Role Phone Marcy Tabor MD Primary Care Provider [phone] Reason for Visit * Reason Comments Follow-up Encounter Details Date Type Department Care Team (Late st Contact Info) Description 11/20/2011 1:35 PM EDT Office Visit Dermatology [address] [place] [address] [address] [place] [address] Mark Moreira MD [address] [place] [address] [place] [address] Actinic keratosis (Primary Dx) Social History Tobacco Use Types Packs/Day Years Used Date Smoking Tobacco: Never Sex and Gender Information Value Date Recorded Sex Assigned at Not on file Gender Identity Not on file Sexual Orientation Not on file documented as of this encounter Progress Notes * Mark Moreira MD - 11/20/2011 1:59 PM EDT Problem: Followup probable Chavez disease versus superficial BCCA, left lateral canthus, status post six weeks of Aldara cream treatment. Patricia follows up and after using the last of her Aldara in August 2011 has used none since and has had no further problems. The hyperkeratotic lesion extending out from the left lateral canthus onto the left lateral methodist area has entirely resolved. It is slightly erythematous still, but there is no induration and no soreness, tenderness, crusting, or scabbing. Assessment and Plan: Probable Chavez/BCCA, status post successful therapy with six weeks of Aldara cream. a. Patient reassured. b. I would not recommend any further therapy or intervention. c. Return to the clinic here p.r.n. d. Reinforced sun avoidance precautions, which the patient is following (use of sunscreen and use of broad-rimmed hat). Copy: Marcy Tabor M.D. documented in this encounter Plan of Treatment Upcoming Encounters Date Type Department Care Team (Late st Contact Info) Description 04/09/2024 2:00 PM EDT Office Visit Dermatology at [address] [phone] Mark Moreira MD [address] [facility] [place] [address] documented as of this encounter Visit Diagnoses Diagnosis Actinic keratosis- Primary documented in this encounter Care Teams Sound Technician Supervisor Relationship Specialty Start Date End Date Marcy Tabor MD [address] [facility] 1 [place] [address] PCP - General 06/18/11 documented as of this encounter
--- OUTSIDE RECORDS SUMMARY | 2024-01-08 12:19 | XMS_ITS | Encounter Summary ---
[place] [address] Care Team Providers Care Irish Moss Operator Name Role Phone Marcy Tabor MD Primary Care Provider [phone] Reason for Visit * Reason Comments Follow-up Skin Check Encounter Details Date Type Department Care Team (Late st Contact Info) Description 10/16/2018 9:15 AM EDT Office Visit Dermatology at [address] [phone] Mark Moreira MD [address] [place] [address] [place] [address] History of SCC (squamous cell carcinoma) of skin; AK (actinic keratosis) Social History Tobacco Use Types Packs/Day Years Used Date Smoking Tobacco: Never Smokeless Tobacco: Never Sex and Gender Information Value Date Recorded Sex Assigned at Not on file Gender Identity Not on file Sexual Orientation Not on file documented as of this encounter Progress Notes * Mark Moreira MD - 10/16/2018 9:15 AM EDT Problem: Follow-up actinic keratosis treatment last visit 09/10/2018 Patricia follows up for repeat check at my request a month after last being seen. She has had a wonderful response to the LN2 therapy for 5 actinic keratoses treated at that visit.. Physical examination of the forehead nose and the cheeks shows total resolution of the actinic keratosis treated there last visit. She is really does not have any significant actinic damage remaining. I see no reason to advance to 5-FU Assessment plan: Actinic keratoses, good response with LN2 therapy 1. Patient reassured. 2. No need for treatment today. 3. Return to clinic here in 6 months for repeat check. If doing well, she may cancel and then reschedule for 6 months beyond that. CC: Marcy Tabor MD documented in this encounter Plan of Treatment Upcoming Encounters Date Type Department Care Team (Late st Contact Info) Description 04/09/2024 2:00 PM EDT Office Visit Dermatology at [place] [address] [facility] [address] Mark Moreira MD [address] [facility] [place] [address] documented as of this encounter Visit Diagnoses Diagnosis History of SCC (squamous cell carcinoma) of skin Personal history of other malignant neoplasm of skin AK (actinic keratosis) Actinic keratosis documented in this encounter Care Teams Irish Moss Operator Relationship Specialty Start Date End Date Marcy Tabor MD [address] [facility] 1 [place] [address] PCP - General 06/18/11 documented as of this encounter
--- OUTSIDE RECORDS SUMMARY | 2024-01-08 12:19 | XMS_ITS | Encounter Summary ---
[place] [address] Care Team Providers Care Synoptic Meteorologist Name Role Phone Marcy Tabor MD Primary Care Provider [phone] Reason for Visit * Reason Comments Follow-up aldara tx. for two w eeks Encounter Details Date Type Department Care Team (Late st Contact Info) Description 07/16/2011 1:45 PM EST Office Visit Dermatology [address] [place] [address] [address] [place] [address] Mark Moreira MD [address] [place] [address] [place] [address] Actinic keratosis (Primary Dx) Social History Tobacco Use Types Packs/Day Years Used Date Smoking Tobacco: Never Sex and Gender Information Value Date Recorded Sex Assigned at Not on file Gender Identity Not on file Sexual Orientation Not on file documented as of this encounter Progress Notes * Mark Moreira MD - 07/16/2011 2:02 PM EST Problem: Followup probable Chavez's versus superficial BCCa, left lateral canthus, status two weeks of Aldara Cream (of total six-week course). Patricia follows up and has had a bit of a brisk reaction. Physical examination shows erythema and some early crusting and scabbing developing over the treatment site on the left lateral canthus. There is minimal reaction adjacent to the actual lateral canthus itself. It is more on the left faith area where she is getting a bit of an excessive reaction. Assessment & Plan: Slightly excessive reaction to Aldara Cream applications left lateral canthus/lateral faith Chavez's/superficial BCCa. a. Hold Cream until erythema and scabbing resolve. b. Then restart applying on a Friday, Friday and Friday basis q. h.s. c. RTC after using it for two weeks at this frequency to ascertain that she is getting a good reaction without crusting and scabbing. documented in this encounter Plan of Treatment Upcoming Encounters Date Type Department Care Team (Late st Contact Info) Description 04/09/2024 2:00 PM EDT Office Visit Dermatology at [place] [address] [place] [address] Mark Moreira MD 580 [facility] [place] [address] documented as of this encounter Visit Diagnoses Diagnosis Actinic keratosis- Primary documented in this encounter Care Teams Synoptic Meteorologist Relationship Specialty Start Date End Date Marcy Tabor MD [address] [facility] 1 [place] [address] PCP - General 06/18/11 documented as of this encounter
--- OUTSIDE RECORDS SUMMARY | 2024-01-08 12:19 | XMS_ITS | Encounter Summary ---
[place] [address] Care Team Providers Care Medical Authorization Specialist Name Role Phone Marcy Tabor MD Primary Care Provider [phone] Reason for Visit * Reason Comments Skin Check Encounter Details Date Type Department Care Team (Late st Contact Info) Description 08/07/2011 1:30 PM EST Office Visit Dermatology [address] [place] [address] [address] [place], [place] [id number] Mark Moreira MD [address] [place] [address] [place] [address] Actinic keratosis (Primary Dx) Social History Tobacco Use Types Packs/Day Years Used Date Smoking Tobacco: Never Sex and Gender Information Value Date Recorded Sex Assigned at Not on file Gender Identity Not on file Sexual Orientation Not on file documented as of this encounter Progress Notes * Mark Moreira MD - 08/07/2011 2:14 PM EST Problem: 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 Patricia follows up and is now having a very mild reaction. Physical examination shows mild erythema but without crusting, scabbing or excessive reactivity on the left lateral canthus. She is applying the Aldara Cream on a q. h.s. Friday, Friday and Friday basis. She still has six packages of Aldara left. Assessment & Plan: Status post four- of six-week Aldara Cream therapy course for Chavez's/superficial BCCa, left lateral canthus. a. Continue current regimen. b. RTC in three weeks for repeat check. c. If hyperkeratotic margin is still present will need to continue yet for a little bit longer. Level of reactivity today is mild but very acceptable. documented in this encounter Plan of Treatment Upcoming Encounters Date Type Department Care Team (Late st Contact Info) Description 04/09/2024 2:00 PM EDT Office Visit Dermatology at [place] [address] [facility] [place] [phone] Mark Moreira MD 580 [facility] [place] [address] documented as of this encounter Visit Diagnoses Diagnosis Actinic keratosis- Primary documented in this encounter Care Teams Medical Authorization Specialist Relationship Specialty Start Date End Date Marcy Tabor MD [address] [place] [address] [place] [address] PCP - General 06/18/11 documented as of this encounter
--- OUTSIDE RECORDS SUMMARY | 2024-01-08 12:19 | XMS_ITS | Encounter Summary ---
[place] [address] Care Team Providers Care Window Shade Ring Sewer Name Role Phone Marcy Tabor MD Primary Care Provider [phone] Encounter Details Date Type Department Care Team (Late st Contact Info) Description 10/07/2023 Refill Dermatology at [address] [address] Rin Hogan LPN Social History [...] 2:00 PM EDT Office Visit Dermatology at [address] [address] Mark Moreira MD [address] [place] [address] DERMATOLOGY [place], [place] [phone] documented as of this encounter Visit Diagnoses Not on filedocumented in this encounter Care Teams Window Shade Ring Sewer Relationship Specialty Start Date End Date Marcy Tabor MD [address] [place] [address] [address] [place] [address] PCP - General 06/18/11 documented as of this encounter
--- OUTSIDE RECORDS SUMMARY | 2024-01-08 12:19 | XMS_ITS | Encounter Summary ---
[place] [address] Care Team Providers Care Dielectric Tester Name Role Phone Marcy Tabor MD Primary Care Provider [phone] Encounter Details Date Type Department Care Team (Late st Contact Info) Description 10/20/2023 Telephone Dermatology at [address] [address] Ashley Sahu RN Social History Tobacco Use Types Packs/Day Years [...] encounter Miscellaneous Notes * Telephone Encounter - Ashley Sahu RN - 10/20/2023 2:17 PM EDT Patient called and informed of her pathology results. Patient had a shave biopsy right lateral arm on 10/07/2023. Diagnosis: Squamous cell carcinoma. Per Dr. Moreira's recommendation no further treatment is needed at this time. Patient to follow up in 6 months for a repeat skin check. Patient informed and she stated that she understood. Patient has a follow up scheduled for 04/09/2024 and reminded of her follow up. documented in this encounter Plan of Treatment Upcoming Encounters Date Type Department Care Team (Late st Contact Info) Description 04/09/2024 2:00 PM EDT Office Visit Dermatology at [place] [address] [facility] [place] [address] Mark Moreira MD 580 [facility] [place] [address] documented as of this encounter Visit Diagnoses Not on filedocumented in this encounter Care Teams Dielectric Tester Relationship Specialty Start Date End Date Marcy Tabor MD [address] [facility] 1 [place] [address] PCP - General 06/18/11 documented as of this encounter
--- OUTSIDE RECORDS SUMMARY | 2024-01-08 12:19 | XMS_ITS | Encounter Summary ---
[place] [address] Care Team Providers Care Shock Absorption Floor Layer Name Role Phone Marcy Tabor MD Primary Care Provider [phone] Encounter Details Date Type Department Care Team (Late st Contact Info) Description 02/07/2021 4:30 PM EDT Office Visit Obstetrics [place] [address] [place] [address] Post-operative state (Primary Dx); Urinary incontinence, urge Social History Tobacco Use Types Packs/Day Years Used Date Smoking Tobacco: Never Smokeless Tobacco: Never Alcohol Use Standard Drinks/Week Comments Never 0 (1 standard drink = 0.6 oz pur e alcohol) Sex and Gender Information Value Date Recorded Sex Assigned at Not on file Gender Identity Not on file Sexual Orientation Not on file documented as of this encounter Last Filed Vital Signs Vital Sign Reading Time Taken Comments Blood Pressure 162/69 02/07/2021 4:20 PM EDT Pulse 83 02/07/2021 4:20 PM EDT Temperature 36.2 ??C (97.1 ??F) 02/07/2021 4:20 PM ED T Respiratory Rate 16 02/07/2021 4:20 PM EDT Oxygen Saturation 98% 02/07/2021 4:20 PM EDT Inhaled Oxygen Concentration - - Weight 59 kg (130 lb) 02/07/2021 4:20 PM EDT Height 160 cm (5' 3) 02/07/2021 4:20 PM EDT Body Mass Index 23.03 02/07/2021 4:20 PM EDT documented in this encounter Progress Notes * Timur Burns MD - 02/07/2021 4:30 PM EDT FEMALE PELVIC MEDICINE AND RECONSTRUCTIVE SURGERY POST OPERATIVE VISIT Patient Active Problem List Diagnosis Code ??? Actinic keratosis L57.0 ??? 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 AK (actinic keratosis) L57.0 ??? History of SCC (squamous cell carcinoma) of skin Z85.828 ??? Prolapse of female pelvic organs N81.9 ??? JENNIFER (stress urinary incontinence, female) N39.3 Date of visit: 02/07/2021 Patient name: Patricia Rice Date of surgery: 12/20/20 Procedure: [place] Colpocleisis, posterior repair, TO mid-urethral sling (Desara SL) Pathology: N/A Findings: EUA found stage 3 uterovaginal prolapse. Cystoscopy confirmed bilateral ureteral orificesin orthotopic position with brisk jets of pyridium- stained urine. Urothelium was intact with no evidence of lesions, masses, stones or foreign bodies. Urethroscopy normal with poor coaptation prior to sling placement. Normal digital rectal exam. Subjective: Ms. Rice is s/p the above procedures. She has been tolerating a regular diet. She denies nausea and vomiting, and she has been afebrile since surgery. Bleeding resolved. Only feels occasional twinge of groin pain when weed whacking. Urinating well, stream strong. Only complaint has been two episodes of urge urinary incontinence with full bladder. Since surgery, she reports: None x Continued vaginal bleeding New pelvic related pain Abnormal vaginal discharge Burning with urination Blood in urine Enuresis New prolapse symptoms since surgery Bladder Function Number of daytime voids: Q2-4 hours Number of nocturia events: 1-2 Urinary incontinence since surgery (y/n): y If yes, [place] Incontinence Severity Index: How often do you experience urinary leakage? 0. Never 1. Less than once a month 2. A few times a month 3. A few times a week 4. Every day and/or night Value 2 How much urine do you lose each time? 0. None 1. Drops 2. Small Splashes 3. More Value 3 The Severity Index is the product of the two questions 0 - NONE 1-2 Slight 3-6 Moderate 8-9 Severe 12 Very severe SCORE: 6 If yes, leaks with: Event Presence Event Presence NONE [place] Walking Cold Weather Running Anticipation of going to the lavatory x Cough/Sneeze First morning void Lifting Running water Laughing Other Number of pads / day: Liner x1 Voiding Dysfunction: Symptom Presence NONE x Straining to empty Incomplete emptying Weak stream Feeling the urge to void after voiding Dribbling Changes in position Difficulty initiating a stream ICIQ-UI Short Form How often do you leak urine? Never 0 1 About once a week or less often 1 2-3 times a week 2 About once a day 3 Several times a day 4 All the time 5 How much urine do you usually leak? None 0 1 A small amount 1 A moderate amount 2 A large amount 3 Overall, how much does leaking interfere with your everyday life? 3 (0 not at all, 10 a great deal) ICIQ Sum the scores: 5 When does urine leak? (Check all that apply) Never - Urine does not leak x Leaks before you can get to the toilet Leaks when you cough or sneeze Leaks when you are asleep Leaks when you are physically active/exercising Leaks when you have finished urinating or are dressed Leaks for no obvious reason Leaks all the time Bowel Function Fecal incontinence since surgery? (stool/gas) no How many fecal incontinence episodes / week? n/a How often do you have bowel movements? Every other day Any new defecatory problems since surgery?: no IF so which defecatory problem?: Symptom Presence Symptom Presence NONE x Require laxatives regularly Difficulty emptying Less than three bowel movements / week Need to strain Urgency Hard stools Other Loose stools Treatment Outcome Satisfaction How would you describe your level of satisfaction with your treatment outcome? 0. Strongly UNsatisfied 1. UNsatisfied 2. Neither satisfied nor unsatisfied 3. Satisfied 4. Strongly satisfied Value 4 Would you recommend this therapy to a friend?: y How much has your treatment outcome met your before treatment expectation? 0. Strongly NOT met my before treatment expectations 1. Not met my before treatment expectations 2. Undecided 3. Met my before treatment expectations 4. Strongly met my before treatment expectations y A preparer is present for the examination. OBJECTIVE: BP 162/69 Pulse 83 Temp 36.2 ??C (97.1 ??F) Resp 16 Ht 160 cm (5' 3) Wt 59 kg (130 lb) SpO2 98% BMI 23.03 kg/m?? Bladder scan: 18cc Urine Dip: not done today General: normal appearing female, pleasant mood, normal speech Abdomen: Abdomen soft, non-tender, no masses. Surgical incision(s): well healed. Skin edges well applied. No evidence of erythema or induration. Back: Non-tender, without costovertebral angle or paraspinal tenderness Pelvic: Cough stress test (empty supine): neg External Genitalia: Vulva, [place]'s and Bartholin glands normal, urethra without tenderness or mass Vagina: well-healed, ~3cm TVL with tunnels which admit a digit either side of midline. Discharge?: no Impression: Ms. Rice is a 71 y.o. year old woman now 6 weeks [place] Colpocleisis, posterior repair, TO mid-urethral sling (Desara SL) - doing well overall Plan: Activity: resume regular activities For OAB/UUI, I agree with pelvic floor PT referral in [place] which she plans to ask her PCP to place F/u via TH in 3 months / PRN to reassess urge UI Timur Burns MD Division of Female Pelvic Medicine/Reconstructive Surgery documented in this encounter Plan of Treatment Upcoming Encounters Date Type Department Care Team (Late st Contact Info) Description 04/09/2024 2:00 PM EDT Office Visit Dermatology at [place] 580 [facility] [place] [phone] Mark Moreira MD 580 [facility] [place] [address] documented as of this encounter Visit Diagnoses Diagnosis Post-operative state- Primary Other postprocedural status Urinary incontinence, urge Urge incontinence documented in this encounter Care Teams Shock Absorption Floor Layer Relationship Specialty Start Date End Date Marcy Tabor MD [address] [address] PCP - General 06/18/11 documented as of this encounter
--- OUTSIDE RECORDS SUMMARY | 2024-01-08 12:19 | XMS_ITS | Encounter Summary ---
[place] [address] Care Team Providers Care Preparation Plant Repairer Name Role Phone Marcy Tabor MD Primary Care Provider Encounter Details Date Type Department Care Team (Late st Contact Info) Description 04/29/2022 Refill Dermatology at [address] [address] Rin Hogan LPN Social History [...] 2:00 PM EDT Office Visit Dermatology at [address] [address] Mark Moreira MD [address] [place] [address] DERMATOLOGY [place], [place] [address] documented as of this encounter Visit Diagnoses Not on filedocumented in this encounter Care Teams Preparation Plant Repairer Relationship Specialty Start Date End Date Marcy Tabor MD [address] [place] [address] [address] [place] [address] PCP - General 06/18/11 documented as of this encounter
--- OUTSIDE RECORDS SUMMARY | 2024-01-08 12:19 | XMS_ITS | Encounter Summary ---
[place] [address] Care Team Providers Care Transition Coach Name Role Phone Marcy Tabor MD Primary Care Provider [phone] Encounter Details Date Type Department Care Team (Late st Contact Info) Description 12/22/2020 Telephone Obstetrics [place] [address] Matilde Sandy RN Social History Tobacco Use Types Packs/Day [...] encounter Miscellaneous Notes * Telephone Encounter - Matilde Sandy RN - 12/22/2020 11:00 AM EDT POST-OP TELEPHONE UPDATE Date of Surgery: 12/20/20 and COLPOCLEISIS\ [place] (WRVU 8.28) (N/A) COLPORRHAPHY, POST RECTOCELE WITH OR W\O PERINEORRHAPHY (WRVU 11.5) (N/A) URETHRAL SUSPENSION, SLING\FASCIA OR SYNTHETIC Overall well-being: I am doing okay Pain?: 3/10 Pain medication working(Y/N)?: Using Motrin with some relief will add Tylenol Location of pain: Buttocks area Bladder function: voiding without difficulty Bowel function: Had a small BM this am Ambulating: Yes Tolerating solids / liquids: well-tolerated Dressings: none Incisions: clean, dry and intact Vaginal bleeding: Minimal bleeding Fever: none Post Op appointment booked? HCK was made Instructions: We reviewed phone contacts. The patient will call triage at during daytime hours or during the evening or weekends and ask for the hoop maker machine manager money if she is having problems. MATILDE SANDY RN documented in this encounter Plan of Treatment Upcoming Encounters Date Type Department Care Team (Late st Contact Info) Description 04/09/2024 2:00 PM EDT Office Visit Dermatology at [place] [address] [place] [address] Mark Moreira MD 580 [facility] [place] [address] documented as of this encounter Visit Diagnoses Not on filedocumented in this encounter Care Teams Transition Coach Relationship Specialty Start Date End Date Marcy Tabor MD [address] [facility] 1 [place] [address] PCP - General 06/18/11 documented as of this encounter
--- OUTSIDE RECORDS SUMMARY | 2024-01-08 12:19 | XMS_ITS | Encounter Summary ---
[place] [address] Care Team Providers Care Electronics Scale Tester Name Role Phone Marcy Tabor MD Primary Care Provider [phone] Encounter Details Date Type Department Care Team (Latest Contact Info) Description 04/22/2022 Travel Social History Tobacco Use Types Packs/Day Years [...] 2:00 PM EDT Office Visit Dermatology at [place] 580 [facility] [place] [address] Mark Moreira MD 580 [facility] [place] [address] documented as of this encounter Visit Diagnoses Not on filedocumented in this encounter Care Teams Electronics Scale Tester Relationship Specialty Start Date End Date Marcy Tabor MD [address] [place], [place] [address] PCP - General 06/18/11 documented as of this encounter
--- OUTSIDE RECORDS SUMMARY | 2024-01-08 12:19 | XMS_ITS | Encounter Summary ---
[place] [address] Care Team Providers Care Story Editor Name Role Phone Marcy Tabor MD Primary Care Provider [phone] Reason for Visit * Reason Onset Date Comments Follow-up 10/23/2020 Encounter Details Date Type Department Care Team (Late st Contact Info) Description 10/23/2020 Telephone Obstetrics [place] [address] Matilde Sandy RN Follow-up Social History Tobacco Use Types Packs/Day Years Used Date Smoking Tobacco: Never Smokeless Tobacco: Never Sex and Gender Information Value Date Recorded Sex Assigned at Not on file Gender Identity Not on file Sexual Orientation Not on file documented as of this encounter Miscellaneous Notes * Telephone Encounter - Matilde Sandy RN - 10/23/2020 3:46 PM EDT Pt spoke with Rocío Saha ( technical project coordinator) and had further questions regarding surgery. Left message for pt to call. documented in this encounter Plan of Treatment Upcoming Encounters Date Type Department Care Team (Late st Contact Info) Description 04/09/2024 2:00 PM EDT Office Visit Dermatology at [address] [phone] Mark Moreira MD 580 [facility] [place] [address] documented as of this encounter Visit Diagnoses Not on filedocumented in this encounter Care Teams Story Editor Relationship Specialty Start Date End Date Marcy Tabor MD [address] [place] [address] PCP - General 06/18/11 documented as of this encounter
--- OUTSIDE RECORDS SUMMARY | 2024-01-08 12:19 | XMS_ITS | Encounter Summary ---
[place] [address] Care Team Providers Care Python Consultant Name Role Phone Marcy Tabor MD Primary Care Provider [phone] Reason for Visit * Reason Comments Follow-up 6 mo skin check Encounter Details Date Type Department Care Team (Late st Contact Info) Description 10/28/2022 11:15 AM EDT Office Visit Dermatology at [address] [address] Mark Moreira MD [address] [place] [address] [place] [address] History of SCC (squamous cell carcinoma) of [...] Progress Notes * Mark Moreira MD - 10/28/2022 11:15 AM EDT PROBLEM: 1. ??6-month skin checkup 2. 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 3. 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 History of SCCA right dorsal hand October 2021 Patricia follows up for 6-month check. She has noted new lesions of concern. She opted not to use the 5-FU for her hands because it was going to be an ktz-ck-[id number] $150 expense for her. Physical examination reveals a pleasant 72-year-old woman who has actinic keratosis versus areas ofBowen's disease on her shins and thighs. She is hyperkeratotic area over the left anterior lower knee. Examination of the face and chest the back hands arms forms otherwise benign. The dorsal hands today show only a few actinic keratoses. Assessment and plan: Actinic keratosis 1. LN 2 x 2 applied to each of 10 sites 2. Do not believe today that her hands required 5-FU therapy we will reserve this option for the future. 3. Discussed the option of the compounding pharmacy as a less expensive source of 5-FU. 4. Return to clinic in another 6 months for repeat check. Return sooner if hyperkeratotic papule recurs below left knee. History of nonmelanoma cutaneous malignancies 1. No evidence of recurrence at prior treatment sites CC: Marcy Tabor MD documented in this encounter Plan of Treatment Upcoming Encounters Date Type Department Care Team (Late st Contact Info) Description 04/09/2024 2:00 PM EDT Office Visit Dermatology at [address] [place] [address] Mark Moreira MD 580 [facility] [place] [address] documented as of this encounter Visit Diagnoses Diagnosis History of SCC (squamous cell carcinoma) of skin Personal history of other malignant neoplasm of skin AK (actinic keratosis) Actinic keratosis documented in this encounter Care Teams Python Consultant Relationship Specialty Start Date End Date Marcy Tabor MD [address] [place] [address] [address] [facility] 1 [place] [address] PCP - General 06/18/11 documented as of this encounter
--- OUTSIDE RECORDS SUMMARY | 2024-01-08 12:19 | XMS_ITS | Encounter Summary ---
[place] [address] Care Team Providers Care Launderer Hand Name Role Phone Marcy Tabor MD Primary Care Provider [phone] Encounter Details Date Type Department Care Team (Latest Contact Info) Description 04/29/2022 Travel Social History Tobacco Use Types Packs/Day [...] 2:00 PM EDT Office Visit Dermatology at [place] 580 [place] [address] Mark Moreira MD 580 [facility] [place] [address] documented as of this encounter Visit Diagnoses Not on filedocumented in this encounter Care Teams Launderer Hand Relationship Specialty Start Date End Date Marcy Tabro MD [address] [place], [place] [address] PCP - General 06/18/11 documented as of this encounter
--- OUTSIDE RECORDS SUMMARY | 2024-01-08 12:19 | XMS_ITS | Encounter Summary ---
Author Organization [facility], Located Within [facility] [place] [address] Care Team Providers Care Local Hazmat Driver Name Role Phone Marcy Tabor MD Primary Care Provider [phone] Reason for Visit * Auth/Cert Specialty Diagnoses [...] Expiration Date Visits Re quested Visits Authorized [id number] 1 1 Encounter Details Date Type Department Care Team (Late st Contact Info) Description 12/20/2020 1:31 PM EDT - 12/20/2020 6:49 PM EDT Surgery Main Operating Room [facility] [place] [id number] Timur Burns MD [facility] [place] [address] COLPOCLEISIS\ [place] (WRVU 8.28) Social History Tobacco Use Types Packs/Day Years [...] Sign Reading Time Taken Comments Blood Pressure 110/37 12/20/2020 6:45 PM EDT Pulse 64 12/20/2020 6:45 PM EDT Temperature 36.2 ??C (97.2 ??F) 12/20/2020 6:11 PM ED T Respiratory Rate 9 12/20/2020 6:45 PM EDT Oxygen Saturation 92% 12/20/2020 6:45 PM EDT Inhaled Oxygen Concentration - - Weight - - Height - - Body Mass Index - - documented in this encounter Discharge Summaries * Timur Burns MD - 12/21/2020 7:16 AM EDT Images from the original note were not included. Discharge Summary Patient Name: Patricia Rice Patient Age: 70 y.o. Language: Panamanian Race: White Ethnicity: Not nor Admit date: 12/20/2020 Discharge date and time: 12/21/20 Attending Physician: No att. providers found Discharge Physician: Timur Burns MD Follow-up Recommendations for Providers: - follow up visit in 6 weeks Inpatient Provider Contact Information: For problems or concerns related to this hospitalization call: [phone] weekdays, or [phone] weekends or nights. Discharge Diagnoses (Hospital Problems) and Secondary Diagnoses (Chronic Problems): Active Hospital Problems Diagnosis ??? Prolapse of female pelvic organs ??? JENNIFER (stress urinary incontinence, female) Resolved Hospital Problems No resolved problems to display. Active Non-Hospital Problems Diagnosis ??? History of SCC (squamous cell carcinoma) of skin ??? AK (actinic keratosis) ??? Chavez's disease ??? Actinic keratosis Operations/Major Procedures: 12/20/20 - [place] colpocleisis, posterior repair, mid-urethral sling History of Presentation: 70 y.o. Female presents to [facility] for surgical management of pelvic organ prolapse and stress urinaryincontinence with colpocleisis, mid-urethral sling, posterior repair Hospital Course: Ms. Rice was admitted on 12/20 and underwent the above procedures without complications. She tolerated the procedure well with a total estimated blood loss of 50mL. She was taken to the PACU awake and in stable condition. POD #0 she was transferred to the floor. Overnight she had adequate urinary output, tolerated po fluids, had good pain control with oral medications. POD #1 she was able to tolerate a regular diet and ambulated with minimal assistance. Her bladder was back-filled via Riddle and then the Riddle was removed. She was able to void adequately and without difficulty. She was afebrile throughout her hospitalization. She was discharged to home POD #1 in stable condition and good spirits. Vital signs at Discharge: BP: 124/60, Heart Rate: 79, Temp: 36.9 ??C (98.4 ??F), Resp: 20, BMI (Calculated): 21.63 Height: 165.1 cm (5' 5) (12/20/202010) Weight: 59 kg (130 lb) (12/21/20 0454) Functional and Cognitive status: stable Important Studies and Lab Data: Labs: Recent Results (from the past 72 hour(s)) POCT Glucose Result Value Ref Range POC Glucose 108 65 - 199 mg/dL Discharge Conditions/Prognosis: stable Discharge to: Home Updated Allergies/ADRs: No Known Allergies Immunizations Given this Hospitalization: Immunization History Administered Date(s) Administered ??? Influenza Vaccine, Whole 05/06/2006 Discharge Medications: Your Medications New Medications Dose Details acetaminophen 325 mg Tab Commonly known as: Tylenol Take 2 tablets by mouth every 6 hours as needed for Pain. 650 mg Quantity: 30 tablet Refills: 1 ibuprofen 600 mg Tab Commonly known as: Advil;Motrin Take 1 tablet by mouth every 6 hours. 600 mg Quantity: 30 tablet Refills: 12 oxyCODONE 5 mg Tab Commonly known as: Roxicodone Take 1-2 tablets by mouth every 4 hours as needed for Pain (Severe pain (7-10)). 5-10 mg Quantity: 5 tablet Refills: 0 Continued medications with new dosing Dose Details PriLOSEC 20 mg Cpdr Generic drug: omeprazole What changed: See the new instructions. Refills: 0 Continued medications, unchanged Dose Details ascorbic acid (vitamin C) 500 mg Chew Commonly known as: VITAMIN C Take by mouth daily. Refills: 0 atenoloL-chlorthalidone 100-25 mg Tab Commonly known as: TENORETIC Take 0.5 tablets by mouth daily. 0.5 tablet Refills: 0 cholecalciferol (Vitamin D3) 50 mcg (2,000 unit) Cap Take 5,000 Units by mouth daily. Generic drug: cholecalciferol (Vitamin D3) 5,000 Units Refills: 0 multivitamin Tab Commonly known as: THERAGRAN Take 1 tablet by mouth daily. 1 tablet Refills: 0 Smoking Status at Discharge: Social History Tobacco Use Smoking Status Never Smoker Smokeless Tobacco Never Used Instructions Given to Patient at Discharge: Patient Instructions Follow up appointments and recommendations: If not made at the time of discharge, please call [phone] (Urogynecology) for an appointment in 6 weeks. Patient Discharge Instructions: For problems or concerns related to this hospitalization call: [phone] weekdays, or [phone] weekends or nights. Call your doctor if you develop: --A fever over 101 degrees F --Severe pain -- Nausea / vomiting, diarrhea, intolerance of food or drink --Heavy vaginal bleeding --Urinary frequency, urgency, or feeling of incomplete emptying of the bladder --If your wound is red, hot, swollen, tender or draining yellow/green fluid Activity level: You should be able to resume your usual activities of daily living (eating, drinking, washing, walking.). You can walk or climb stairs as long as you are not straining. You should avoid more vigorous exercise for at least 6 weeks. No lifting, pushing or pulling greater than 5-10 pounds for 6 weeks. No sexual intercourse and place nothing in the vagina for 6 weeks. Diet: Regular as tolerated, drink plenty of fluids. Use a stool softener (Colace) twice daily and Metamucil or Citrucel once or twice daily to keep your bowel movement soft and regular, so you do nothave to strain. ?? If you miss two days without a bowel movement, take 30cc of Robin???s Milk of Magnesia. You may take up to 30cc of Robin???s Milk of Magnesia 4 times per day over a short amount of time (1 week). Driving: Do not drive until you are off of all narcotic medications and you are not feeling pain; usually about 1-2 weeks. Shower/Bath: Showering is fine. Do not soak in a tub for two weeks following surgery, this may cause your stitches to dissolve too early. Wound Care: Most women will experience some vaginal bleeding and discharge after surgery. You will want to havesome menstrual pads at home. Pain medications include Ibuprofen, Tylenol and oxycodone ?? Please use Ibuprofen 600 mg every 6 hours with food around the clock for the next several days and then after that use it only as needed. Drink plenty of fluids while you are home with this medication ?? You may alternate ibuprofen with Tylenol 650 mg every 6 hours. Maximum daily dose of Tylenol is 3000 mg. ?? Please use the oxycodone 5 mg every 4-6 hours as needed for pain that breaks through the Ibuprofen General Instructions None Future Appointments and Orders Future Appointments and Orders Future Appointments Provider Department Dept Phone 01/30/2021 4:15 PM Kaylie Deleon, PRIVATE CLIENT ADVISOR; Timur Burns MD Obstetrics and Gynecology at [facility] Arrive at: [facility] Clerk Area 04/26/2021 8:15 AM Mark Moreira MD Dermatology at [place] Arrive at: [facility] [address] [phone] Discharge References/Attachments None Provider Contact Information: Marcy Tabor MD [phone] documented in this encounter Discharge Instructions * Patient Instructions* Laina Chairez N - 12/21/2020 7:12 AM EDT Images from the original note were not included. Follow up appointments and recommendations: If not made at the time of discharge, please call [phone] (Urogynecology) for an appointment in 6 weeks. Patient Discharge Instructions: For problems or concerns related to this hospitalization call: [phone] weekdays, or [phone] weekends or nights. Call your doctor if you develop: --A fever over 101 degrees F --Severe pain -- Nausea / vomiting, diarrhea, intolerance of food or drink --Heavy vaginal bleeding --Urinary frequency, urgency, or feeling of incomplete emptying of the bladder --If your wound is red, hot, swollen, tender or draining yellow/green fluid Activity level: You should be able to resume your usual activities of daily living (eating, drinking, washing, walking.). You can walk or climb stairs as long as you are not straining. You should avoid more vigorous exercise for at least 6 weeks. No lifting, pushing or pulling greater than 5-10 pounds for 6 weeks. No sexual intercourse and place nothing in the vagina for 6 weeks. Diet: Regular as tolerated, drink plenty of fluids. Use a stool softener (Colace) twice daily and Metamucil or Citrucel once or twice daily to keep your bowel movement soft and regular, so you do nothave to strain. ?? If you miss two days without a bowel movement, take 30cc of Robin???s Milk of Magnesia. You may take up to 30cc of Robin???s Milk of Magnesia 4 times per day over a short amount of time (1 week). Driving: Do not drive until you are off of all narcotic medications and you are not feeling pain; usually about 1-2 weeks. Shower/Bath: Showering is fine. Do not soak in a tub for two weeks following surgery, this may cause your stitches to dissolve too early. Wound Care: Most women will experience some vaginal bleeding and discharge after surgery. You will want to havesome menstrual pads at home. Pain medications include Ibuprofen, Tylenol and oxycodone ?? Please use Ibuprofen 600 mg every 6 hours with food around the clock for the next several days and then after that use it only as needed. Drink plenty of fluids while you are home with this medication ?? You may alternate ibuprofen with Tylenol 650 mg every 6 hours. Maximum daily dose of Tylenol is 3000 mg. ?? Please use the oxycodone 5 mg every 4-6 hours as needed for pain that breaks through the Ibuprofen documented in this encounter Medications at Time of Discharge Medication Sig Dispensed Refills Start Date End Date acetaminophen (Tylenol) 325 mg Tablet Take 2 tablets by mouth every 6 hours as needed for Pain. 30 tablet 1 12/21/2020 ibuprofen (Advil;Motrin) 600 mg Tablet Take 1 tablet by mouth every 6 hours. 30 tablet 12 12/21/2020 multivitamin (THERAGRAN) Tablet Take 1 tablet by mouth daily. ascorbic acid, vitamin C, (VITAMIN C) 500 mg Tablet, Chewable Take by mouth daily. cholecalciferol, Vitamin D3, 50 mcg (2,000 unit) Capsule Take 5,000 Units by mouth daily. omeprazole (PRILOSEC) 20 mg capsule 04/22/2005 oxyCODONE (Roxicodone) 5 mg Tablet Take 1-2 tablets by mouth every 4 hours as needed for Pain (Severe pain (7-10)). 5 tablet 12/21/2020 10/26/2021 atenolol-chlorthalidone (TENORETIC) 100-25 mg Tablet Take 1 tablet by mouth daily. 08/15/2016 05/01/2023 documented as of this encounter Progress Notes * Wyatt Schneider MD - 12/21/2020 6:55 AM EDT Images from the original note were not included. Gynecology Post operative Progress Note ID: Patricia Rice is an 70 y.o. woman with PMHx of HTN, HLD, GERD, OA, and basal cell carcinoma who is post operative day #1 s/p [place] colpocleisis, posterior repair, and transobturator midurethral sling, for prolapse and occult JENNIFER. Subjective: Overnight, no acute events were reported. This morning, Patricia reports that her pain has been well managed with Toradol. She is able to tolerate sips of water without any nausea or vomiting. She did not eat overnight, as she was able to fall asleep right after her procedure. Looking forward to eating breakfast. Able to ambulate, passing gas,passed her void trial this AM. She says that her vaginal bleeding has been minimal overnight. ROS: in addition to above, denies chest pain, shortness of breath, fever, chills, lightheadedness, dizziness, and leg pain. Objective: Last value Range last 24 hrs Temperature Temp: 36.3 ??C (97.3 ??F) Temp: [36.1 ??C (97 ??F)-36.6 ??C (97.9 ??F)] Heart Rate Heart Rate: 86 Heart Rate: [63-95] Blood Pressure BP: 131/71 BP: (108-149)/(36-71) Respiratory Rate Resp: 16 Resp: [9-27] SpO2 SpO2: 98 % SpO2: [92 %-100 %] Art BP BP (Arterial Line): -- UOP: 155mL/ hour (recorded over last 6 hours). AM Void trial passed. Physical Exam Gen: NAD, sleeping and easily arousable. Cardio: RRR, no MRG Pulm: CTAB, no wheezes or crackles. Abd: Normoactive bowel sounds, soft, obese, non-distended, nontender to palpation. Ext: warm, well-perfused, no edema bilaterally, SCDs in place and running. : Vaginal bleeding noted to be minimal on vanita-pad Assessment and Plan: Patricia Rice is an 70 y.o. woman s/p above procedure. Patient is doing wellin the immediate postoperative period. Overall, feels well, is ready for discharge pending tolerance of breakfast this AM. Please see systems-based assessment below. Neuro: Adequate pain control; ordered for Toradol --> ibuprofen, Tylenol, oxycodone, and IV Dilaudid. -- transition to PO pain meds when able to take adequate PO Cardiac/Heme: History of HTN. Vital signs wnl. Currently normotensive and hemodynamically stable -- ordered for home Atenolol-Chlorthalidone, takes qAM, last 12/19. Pulmonary: Adequate O2 sats on room air. -- supplemental O2 to maintain saturation >92%. -- encourage incentive spirometry. Gastrointestinal: Denies nausea, vomiting. Tolerating liquids. -- advance diet as tolerated, regular diet ordered. -- Zofran prn nausea. -- Colace BID Genitourinary: Adequate UOP, Riddle removed, passed voiding trial in AM Fluid/ Electrolytes: Tolerating some liquids. -- LR at 100cc/hour. -- discontinue intravenous fluid when taking adequate PO. ID: Received Ancef preoperatively. Afebrile. -- no current concerns Endocrine: No concerns Psychiatry: No concerns Gynecology: s/p above procedure for prolapse and JENNIFER. -- Postoperative follow-up to be arranged prior to d/c Prophylaxis: Received 5000u subq Heparin preoperatively. -- incentive spirometry. -- encourage ambulation. -- SCDs. Disposition: --Anticipate discharge home today, pending tolerance of PO intake Code Status: Full Code Wyatt Schneider MD, PGY1 Obstetrics & Gynecology 12/21/20 Associated attestation - Timur Burns MD - 12/21/2020 11:43 AM EDT DIVISION FEMALE PELVIC MEDICINE & RECONSTRUCTIVE SURGERY STAFF NOTE I saw Ms. Rice today and reviewed her history. She is Post-operative day #1 from [place] colpocleisis, posterior repair, and transobturator midurethral sling. I have reviewed Dr. Schneider's note above and agree with the history she outlines. I examined the patient and agree with the documented findings and plans outlined above. Pertinent findings include: Passed trial of void Pain well controlled Tolerating PO Meeting routine post-operative milestones and prepared for discharge home All questions answered. Timur Burns MD Division of Female Pelvic Medicine & Reconstructive Surgery * Anel Ruggiero - 12/21/2020 6:43 AM EDT Images from the original note were not included. Uro-Gynecology Medical Student Progress Note Subjective: Patricia Rice is a 70 y.o. female w/pmhx of HTN, HLD, GERD, OA, basal cell carcinoma now 1 Day Post-Op s/p Colpocleisis, posterior repair, mid-urethral sling, Cysto for pelvic organ prolapse and occult JENNIFER. Overnight Events: Patricia has no complaints this AM. She reports mild discomfort but her pain is well controlled. She passed her voiding trial, endorses flatus but no BM. She ambulated independently andfelt steady on her feet. She reported she slept yesterday so did not eat any dinner. She reports she is hungry and ordered breakfast. Denies nausea/vomiting. Objective: Last value Range last 24hrs Temperature Temp: 36.3 ??C (97.3 ??F) Temp: [36.1 ??C (97 ??F)-36.6 ??C (97.9 ??F)] Heart Rate Heart Rate: 86 Heart Rate: [63-95] Blood Pressure BP: 131/71 BP: (108-149)/(36-71) Respiratory Rate Resp: 16 Resp: [9-27] SpO2 SpO2: 98 % SpO2: [92 %-100 %] 12/20 07 - 12/21 0700 In: 1650 [P.O.:500; I.V.:850] Out: 1585 [Urine:1535] PE: General: AOx3, NAD, conversant Cardiopulm: non-labored respiration, warm well perfused Abd: soft, nontender, non-distended Ext: no peripheral edema, warm, dry : no blood vanita-pad Neuro: Non-focal, moving all four extremities spontaneously Scheduled Meds: ??? sodium chloride 0.9 % (flush) 5 mL Intravenous BID ??? docusate sodium 100 mg Oral BID ??? ibuprofen 600 mg Oral Q6H ??? famotidine 20 mg Intravenous 2 times per day ??? atenoloL 50 mg Oral Daily And ??? chlorthalidone 12.5 mg Oral Daily Continuous Infusions: ??? lactated Ringers 1,000 mL (12/20/20 1833) PRN Meds:.BUpivacaine-EPINEPHrine, sodium chloride 0.9 % (flush), lidocaine, acetaminophen, oxyCODONE, HYDROmorphone, ondansetron Drains: Patient Lines/Drains/Airways Status Active Tubes/Lines/Drains Name Placement date Placement time Site Days Peripheral IV Line - Single Lumen 12/20/20 1402 cephalic vein (lateral side of arm), left 18 gauge 12/20/20 1402 1 Labs: No results for input(s): WBC, HGB, HCT, PLATELET, PT, INR, PTT in the last 72 hours. No results for input(s): NA, K, CL, CO2, BUN, CREATININE, GLUCOSE, CALCIUM, MAGNESIUM, PHOS, PTH inthe last 72 hours. Invalid input(s): LFTS New Imaging: No results found. Assessment: Patricia Rice is a 70 y.o. female now 1 Day Post-Op s/p colpocleisis, posterior repair, mid-urethral sling, Cysto. She is recovering well and meeting all post-op milestones. She can ambulate, void, and her pain is well controlled with oral analgesics. She will attempt to eat breakfastand then is likely ready for discharge home this AM, presuming she can tolerate PO without N/V. Plan by System: NEURO: Pain well controlled on toradol--> motrin, oxycodone, tylenol. Alert and oriented. CV: Vital signs wnl. Hemodynamically stable, no evidence of bleeding. -continue Home atenolol/chlorthalidone PULM: Adequate spO2 on room air. No concerns - Encourage incentive spirometry GI Denies nausea, vomiting. Tolerating Regular diet. -Zofran prn, pepcid, Pericolace FEK: Has not eaten yet, but will assess after breakfast this am : Riddle removed. Adequate urine output. Passed voiding trial -Monitor intake and output ENDO: No Issues ID: Afebrile, received prophylactic antibiotics preop, no evidence of infection -continue to monitor vital signs. PPX: Pepcid. SCDs. IS. OOB DISPO: Floor, will need inpatient services for at least 24hours. Attempt Cardiopulmonary Resuscitation - Inpatient Anel Ruggiero, Pager [phone] [facility], MS4 Benign Gynecology Pager [phone] 12/21/20 Associated attestation - Timur Burns MD - 12/21/2020 11:41 AM EDT STAFF NOTE I was directly available and discussed the patient with Virginia Ruggiero MS4. I reviewed the patient's history and physical exam. I confirmed the diagnosis and agree with the medical decision making as documented. Timur Burns MD Division of Female Pelvic Medicine and Reconstructive Pelvic Surgery * Yumi Naranjo - 12/21/2020 12:44 AM EDT Images from the original note were not included. Gynecology Post operative Progress Note ID: Patricia Rice is an 70 y.o. woman with PMHx of HTN, HLD, GERD, OA, and basal cell carcinoma who is post operative day #1 s/p [place] colpocleisis, posterior repair, and transobturator midurethral sling, for prolapse and occult JENNIFER. Intraoperative Events: -EBL 50mL -Findings: EUA found stage 3 uterovaginal prolapse. Cystoscopy confirmed bilateral ureteral orifices in orthotopic position with brisk jets of pyridium- stained urine. Urothelium was intact with no evidence of lesions, masses, stones or foreign bodies. Urethroscopy normal with poor coaptation prior to sling placement. Normal digital rectal exam. Subjective: Patricia Rice reports that her pain is well controlled with Toradol. She feels a little crampy but has been able to rest through it. She has tolerated liquids without nausea or vomiting. Her riddle catheter remains in place. She has not yet ambulated. ROS: in addition to above, denies chest pain, shortness of breath, fever, chills, lightheadedness, dizziness, and leg pain. Objective: Last value Range last 24 hrs Temperature Temp: 36.3 ??C (97.3 ??F) Temp: [36.1 ??C (97 ??F)-36.6 ??C (97.9 ??F)] Heart Rate Heart Rate: 78 Heart Rate: [63-95] Blood Pressure BP: 133/64 BP: (108-149)/(36-66) Respiratory Rate Resp: 15 Resp: [9-27] SpO2 SpO2: 95 % SpO2: [92 %-100 %] Art BP BP (Arterial Line): -- UOP: 45mL/ hour (recorded over last 5.5 hours). Physical Exam Gen: NAD, sleeping and easily arousable. Cardio: RRR, no MRG Pulm: CTAB, no wheezes or crackles. Abd: Normoactive bowel sounds, soft, obese, non-distended, nontender to palpation. Ext: warm, well-perfused, no edema bilaterally, SCDs in place and running. : Riddle catheter in place draining pyridium stained urine, 250cc in bag over last 5.5hrs. Vaginalbleeding noted to be minimal on vanita-pad Assessment and Plan: Patricia Rice is an 70 y.o. woman s/p above procedure. Patient is doing wellin the immediate postoperative period. Please see systems- based assessment below. Neuro: Adequate pain control; ordered for Toradol --> ibuprofen, Tylenol, oxycodone, and IV Dilaudid. -- transition to PO pain meds when able to take adequate PO Cardiac/Heme: History of HTN. Vital signs wnl. Currently normotensive and hemodynamically stable -- ordered for home Atenolol-Chlorthalidone, takes qAM, last 12/19. Pulmonary: Adequate o2 sats on room air. -- supplemental O2 to maintain saturation >92%. -- encourage incentive spirometry. Gastrointestinal: Denies nausea, vomiting. Tolerating liquids. -- advance diet as tolerated, regular diet ordered. -- Zofran prn nausea. -- Colace BID Genitourinary: Adequate UOP, draining pyridum stained urine. -- strict I/Os. -- AM voiding trial Fluid/ Electrolytes: Tolerating some liquids. -- LR at 100cc/hour. -- discontinue intravenous fluid when taking adequate PO. ID: Received Ancef preoperatively. Afebrile. -- no current concerns Endocrine: No concerns Psychiatry: No concerns Gynecology: s/p above procedure for prolapse and JENNIFER. -- Postoperative follow-up to be arranged prior to d/c Prophylaxis: Received 5000u subq Heparin preoperatively. -- incentive spirometry. -- encourage ambulation. -- SCDs. Disposition: --Anticipate discharge home tomorrow Code Status: Full Code Yumi Naranjo MD PGY3 Gynecology #[id number] 12/21/20 * Siobhan Putnam RN - 12/20/2020 7:52 PM EDT 0: Handoff from JACINTO Wolff. Patient resting comfortably in bed with eyes closed. Riddle drainingbright orange urine 1950: Report called to JACINTO Martinez * Mariella Garcia RN - 12/20/2020 6:20 PM EDT 1810: Patient arrived to PACU05 from OR and attached to monitors. Vital signs stable. Alarms audible and set appropriately. Report received from surgical service and anesthesia. Urethral catheter draining bright orange urine. Patient in no apparent distress. documented in this encounter H&P Notes * Cinthya Acuna - 12/20/2020 2:24 PM EDT Gynecology H & P Problem List: There are no hospital problems to display for this patient. Active Non-Hospital Problems Diagnosis ??? History of SCC (squamous cell carcinoma) of skin ??? AK (actinic keratosis) ??? Chavez's disease ??? Actinic keratosis Reason for Visit: 70 y.o. Female presents to [facility] for surgical management of pelvic organ prolapse and stress urinaryincontinence. History of Present Illness: HPI The patient denies any health changes since last seeing Dr. Burns. She is able to tolerate ibuprofenand tylenol. Her preferred pharmacy is [facility] in [place], [place]. Consent was reviewed with the patient and she confirmed the procedures listed. Review of Systems: Review of Systems Denies fever, chills, chest pain, sob, n/v, abnormal vaginal discharge, irregular vaginal bleeding,dysuria, hematuria, constipation/diarrhea, abnormal weight loss/gain, cold or heat intolerance Past Medical and Surgical History: Past Medical History: Diagnosis Date ??? Basal cell carcinoma (BCC) ??? GERD (gastroesophageal reflux disease) ??? HTN (hypertension) ??? Hyperlipidemia ??? Osteoarthritis Past Surgical History: Procedure Laterality Date ??? TOTAL HIP ARTHROPLASTY Past Obstetric History: OB History Para Term AB Living 3 3 2 1 0 3 SAB TAB Ectopic Multiple Live Births 0 0 0 0 0 Prior To Admission Medications: Medications Prior to Admission Medication Sig Dispense Refill Last Dose ??? omeprazole (PRILOSEC) 20 mg capsule (Patient taking differently: Take 20 mg by mouth daily.) 12/20/2020 at Unknown time ??? multivitamin (THERAGRAN) Tablet Take 1 tablet by mouth daily. ??? ascorbic acid, vitamin C, (VITAMIN C) 500 mg Tablet, Chewable Take by mouth daily. ??? cholecalciferol, Vitamin D3, (cholecalciferol, Vitamin D3,) 50 mcg (2,000 unit) Capsule Take 5,000 Units by mouth daily. ??? atenolol-chlorthalidone (TENORETIC) 100-25 mg Tablet Take 0.5 tablets by mouth daily. Allergies: No Known Allergies Family History: History reviewed. No pertinent family history. Social History and Habits: Social History Socioeconomic History ??? Marital status: Spouse name: Not on file ??? Number of children: Not on file ??? Years of education: Not on file ??? Highest education level: Not on file Occupational History ??? Not on file Tobacco Use ??? Smoking status: Never Smoker ??? Smokeless tobacco: Never Used Vaping Use ??? Vaping Use: Never used Substance and Sexual Activity ??? Alcohol use: Never ??? Drug use: Never ??? Sexual activity: Not on file Other Topics Concern ??? Not on file Social History Narrative ??? Not on file Social Determinants of Health Financial Resource Strain: ??? Difficulty of Paying Living Expenses: Food Insecurity: ??? Worried About Running Out of Food in the Last Year: ??? Ran Out of Food in the Last Year: Transportation Needs: ??? Lack of Transportation (Medical): ??? Lack of Transportation (Non-Medical): Physical Activity: ??? Days of Exercise per Week: ??? Minutes of Exercise per Session: Immunizations: Immunization History Administered Date(s) Administered ??? Influenza Vaccine, Whole 05/06/2006 Physical Exam: Last Set of Vitals: Last value Range last 24 hrs Temperature Temp: 36.6 ??C (97.9 ??F) Temp: [36.6 ??C (97.9 ??F)] Heart Rate Heart Rate: 95 Heart Rate: [95] Blood Pressure BP: 149/58 BP: (149)/(58) Respiratory Rate Resp: 16 Resp: [16] SpO2 SpO2: 100 % SpO2: [100 %] Physical Exam Gen: well-appearing, NAD CV: RRR, nml s1/s2 Pulm: CTAB, no wheezes/crackles Abd: soft/NT/ND : deferred to OR Ext: no lower extremity edema Assessment/Plan: Patricia Rice is a 70 y.o. who presents for [place] Colpocleisis, posterior repair, TO mid-urethral sling with mesh. After discussion of the fascia maría harvest and the mesh, the patient would like to pursue the mesh placement. She understands her risks of mesh complications including erosion or exposure in additional to infection, bleeding, injury to surrounding structures, urinary retention, re-operation. . Consent was reviewed. She is planning on staying overnight. Cinthya Acuna MD 12/20/2020 documented in this encounter Miscellaneous Notes * Brief Op Note - Timur Burns MD - 12/20/2020 5:42 PM EDT Brief Operative Note Patient Name: Patricia Rice : [id number] MR#: [id number] Case Date: 12/20/2020 Surgeon: Surgeon(s) and Role: * Timur Burns MD - Primary * Cinthya Acuna MD - Fellow Preoperative diagnosis: Stress urinary incontinence Postoperative diagnosis: Stress urinary incontinence Procedure(s) (LRB): COLPOCLEISIS\ [place] (WRVU 8.28) (N/A) COLPORRHAPHY, POST RECTOCELE WITH OR W\O PERINEORRHAPHY (WRVU 11.5) (N/A) URETHRAL SUSPENSION, SLING\FASCIA OR SYNTHETIC (WRVU 12.13) (N/A) Anesthesia: General Findings: EUA found stage 3 uterovaginal prolapse. Cystoscopy confirmed bilateral ureteral orificesin orthotopic position with brisk jets of pyridium- stained urine. Urothelium was intact with no evidence of lesions, masses, stones or foreign bodies. Urethroscopy normal with poor coaptation prior to sling placement. Normal digital rectal exam. Complications: None Intake: Intraprocedure Crystalloid Total Intake lactated ringers infusion 500.00 mL Total Intake 500 mL Transfusion No data found in the last 1 encounters. Output: Estimated Blood Loss: 50cc Urine Output:: 700cc Other Output: (no other output recorded) Drains: Riddle Specimens removed during surgery: None Disposition: awakened from anesthesia, extubated and taken to the recovery room in a stable condition, having suffered no apparent untoward event. Condition: doing well without problems Attestation: Case Date: 12/20/2020 I was present and I participated during the entire procedure (does not need to include opening and closing). (Please see the Surgical Encounter Summary for any Implant and Specimen details pertinent to this patient.) Infection Bundle used? No * Op Note - Timur Burns MD - 12/20/2020 3:35 PM EDT [facility] [place] Operative Note Patient Name: Patricia Rice : [id number] MR#: [id number] Case Date: 12/20/2020 Surgeon: Surgeon(s) and Role: * Timur Burns MD - Primary * Cinthya Acuna MD - Fellow Preoperative diagnosis: Stress urinary incontinence, Pelvic organ Prolapse Postoperative diagnosis: Stress urinary incontinence, pelvic Organ Prolapse Procedure(s) (LRB): COLPOCLEISIS\ [place] (WRVU 8.28) (N/A) COLPORRHAPHY, POST RECTOCELE WITH OR W\O PERINEORRHAPHY (WRVU 11.5) (N/A) URETHRAL SUSPENSION, SLING\FASCIA OR SYNTHETIC (WRVU 12.13) (N/A) Anesthesia: General Estimated Blood Loss: 50 mL Specimens removed during surgery: None Drains: Riddle Surgical Closure: Primary Closure - skin incision is completely closed without any wires, chase, drains or other devices Disposition: awakened from anesthesia, extubated and taken to the recovery room in a stable condition, having suffered no apparent untoward event. Condition: doing well without problems (Please see the Surgical Encounter Summary for any Implant and Specimen details pertinent to this patient.) HPI/Surgical Indications: Patricia Rice is a 70 y.o. woman with stage 3 POP and occult JENNIFER who desires surgical repair. Findings: EUA found stage 3 uterovaginal prolapse. Cystoscopy confirmed bilateral ureteral orificesin orthotopic position with brisk jets of pyridium- stained urine. Urothelium was intact with no evidence of lesions, masses, stones or foreign bodies. Urethroscopy normal with poor coaptation prior to sling placement. Normal digital rectal exam. Procedure Description: The patient was brought to Operating Room #27 General anesthesia was induced. The patient was positioned in the dorsal lithotomy position with her legs in adjustable Yellofin stirrups. She was positioned in what was felt to be neurologically safe positioning. She received 2g Ancef IV prior to incision. Knee-high intermittent compression stockings were placed for DVT prophylaxis. Following examination under anesthesia, she was prepped and draped in the usual sterile fashion. A time-out protocol was adhered to, confirming the patient's identity, planned procedures, and safety measures. Two trapezoids were mapped out for the posterior and anterior vaginal barron. The posterior wall wasdissected first with the trapezoid extending from the cervical portio to within 2 cm of the distal vagina at the posterior fourchette. The area was infiltrated with 0.25% Sensorcaine with [id number] Epinephrine solution. A similar trapezoid was mapped out and excised on the anterior vaginal wall. The corners of the dissection at the level of the cervix were sutured together with a mattress 0 Vicryl suture. Next, a channel was created across the cervix, imbricating the remaining vaginal tissueat the cervical portio from anterior to posterior with mattress 0 Vicryl sutures. Lateral channels were then begun by sequential placement of 0 Vicryl mattress sutures, beginning at the apex and continuing to the introitus. One 2-0 PDS suture was used in sequential pursestring fashion then three 2-0 PDS sutures placed in a vertical fashion with gradual reduction of the prolapsed tissue by approximating the pubocervical fascia to the posterior rectovaginal septum. The distal vagina was reapproxim ated with [id number] 0 Vicryl sutures. Attention was then turned to the sling. The bilateral groin creases were palpated and the area for entry of the trocars identified bilaterally by first palpating the adductor longus and then the gracilis muscle tendon insertions. The space at the level of the obturator membrane through which the trocars would pass, was infiltrated with 10cc of 0.25% Sensorcaine with [id number] Epinephrine solution on each side. Stab wound incisions were made on the skin. Next, the suburethral vaginal wall was grasped with two Allis clamps. The mid-urethra was identified with aid of a urethral catheter. The mid-urethral vaginal wall was infiltrated with 1% lidocaine with epinephrine, extending out to the sulci bilaterally. A 2 cm vertical incision was in the suburethral vagina and a full thickness dissectionperformed in the paraurethral space out to the pubic rami bilaterally. The posterior urethra was freed up from the posterior vaginal wall. At this point we closely inspected the urethra, both via the vaginal incision and with cystourethroscopy due to suspicion of close proximity to the urethral lumen with the dissection. There was no urethrotomy noted but an attenuated area was oversewn with three interrupted sutures of 4-0 Vicryl to plicate the vanita- urethral fascia. The procedure then continued as planned. Helical Eddie needles were used to douglass the obturator foramen, protruding this through the vaginal incision. This was accomplished bilaterally, and then amacroporous polypropylene mesh sling (Desara SL) was retrieved from both sides. We ensured there was no sulcal vaginal wall perforation bilaterally. Cystoscopy was performed with a 70-degree cystoscope with reassuring findings. The mesh was tensioned visually with a clamp resting between the urethra and the sling to ensure a tension-free position. The mesh was deployed by removing the protective plastic coating bilaterally. Once the protective coating was removed, the right angle clamp was removed, yielding an excellent mid-urethral placement without tension. The vaginal wall was reapproximated with 2-0 Vicryl in a running fashion. The groinskin incisions were reapproximated with DermaBond glue. Cystoscopy was performed with a 70-degree cystoscope with reassuring findings. Pyridium had been administered pre-operatively. The bladder was again drained with a Riddle catheter. The posterior colpoperineorrhaphy was initiated. The posterior fourchette and remaining posterior vagina was infiltrated with lidocaine with epinephrine solution, and a wedge of posterior vaginal wall extending out along the peritoneal body was excised. The rectum was dissected away from the vaginal wall laterally on the distal posterior vagina. Four interrupted 0 Vicryl sutures were then used toincorporate the lateral puborectalis muscle across the midline to provide a shelf of support in a stack of quarters fashion. A running 2-0 Vicryl suture was then used to reapproximate the remainingunclosed portion at the apex of the vagina. A second running 2-0 Vicryl suture was used to reapproxi mate the posterior vaginal wall extending to the perineal body. A rectal examination confirmed no injury to the rectum. Sponge and needle counts were correct at the conclusion of the procedure Infection Bundle used? No Attestation: Case Date: 12/20/2020 I was present and I participated during the entire procedure (does not need to include opening and closing). Timur Burns MD 12/20/2020 documented in this encounter Plan of Treatment Upcoming Encounters Date Type Department Care Team (Late st Contact Info) Description 04/09/2024 2:00 PM EDT Office Visit Dermatology at [address] [id number] Mark Moreira MD [address] [facility] [address] documented as of this encounter Procedures Procedure Name Priority Date/Time Associated Diagnosis Comments URETHRAL SUSPENSION, SLING\FASCIA OR SYNTHETIC (WRVU 12.13) 12/20/2020 3:05 PM EDT Stress urinary incontinence COLPORRHAPHY, POST RECTOCELE WITH OR W\O PERINEORRHAPHY (WRVU 10.08) 12/20/2020 3:05 PM EDT Stress urinary incontinence COLPOCLEISIS\ [place] (WRVU 8.28) 12/20/2020 3:05 PM EDT Stress urinary incontinence POCT GLUCOSE Routine 12/20/2020 2:02 PM EDT URETHRAL SUSPENSION,SLING\FASCI A OR SYNTHETIC Routine 12/20/2020 1:42 PM EDT COLPORRHAPHY,POST RECTOCELE W\OR W\O PERINEORRHAPHY Routine 12/20/2020 1:42 PM EDT COLPOCLEISIS\ [place] Routine 12/20/2020 1:42 PM EDT IMPLANTABLE DEVICES SCAN 12/20/2020 12:00 AM EDT documented in this encounter Results * POCT Glucose (12/20/2020 2:02 PM EDT) POC Glucose 108 65 - 199 mg/dL [facility] Comment: Supplemental ranges: <140 mg/dL before meals <180 mg/dL all other times of the day Blood 12/20/2020 2:02 PM EDT 12/20/2020 2:02 PM EDT Timur Burns MD POINT OF CARE TEST O RDERABLES [facility] [place] [address] * SCAN DOC: IMPLANTABLE DEVICES (12/20/2020 12:00 AM EDT) Unknown MEDIA MGR SCAN EXT O RDR/RSLT documented in this encounter Visit Diagnoses Not on filedocumented in this encounter Admitting Diagnoses Diagnosis Prolapse of female pelvic organs Unspecified genital prolapse documented in this encounter Administered Medications Inactive Administered Medications - up to 3 most recent administrations Medication Order MAR Action Action Date Dose Rate Site acetaminophen (Tylenol) tablet 650 mg 650 mg, Oral, EVERY 6 HOURS PRN, Starting on Fri12/20/20 at 1825, Until Fri12/21/20 at 1207, Pain, - If ordered with other PRN pain medications give Ibuprofen first, then acetaminophen, then additional agents according to the pain scale. - Maximum dose of acetaminophen is 4000 mg from all sources in 24 hours., Routine Given 12/21/2020 5:35 AM EDT 650 mg atenoloL (Tenormin) tablet 50 mg 50 mg, Oral, DAILY, First dose on Fri12/21/20 at 0900, Until Discontinued, Routine Given 12/21/2020 8:13 AM EDT 50 mg BUpivacaine-EPINEPHrine 0.5 %-1:200,000 injection ONCE PRN, Starting on Fri12/20/20 at 1652, Until Fri12/21/20 at 1207, Intra-Operative (Intra-Procedure), Routine Given 12/20/2020 4:52 PM EDT 30 mLs 19- Surgical Site chlorthalidone (Hygroten) tablet 12.5 mg 12.5 mg, Oral, DAILY, First dose on Fri12/21/20 at 0900, Until Discontinued, Routine Given 12/21/2020 8:13 AM EDT 12.5 mg famotidine (Pepcid) (10 mg/mL) injection 20 mg 20 mg, Intravenous, EVERY 12 HOURS SCHEDULED (2 times per day), First dose on Fri12/20/20 at 2100, Until Discontinued Given 12/20/2020 8:47 PM EDT 20 mg heparin (porcine) (5,000 units/1 mL) subcutaneous injection 5,000 Units 5,000 Units, Subcutaneous, ONCE, 1 dose, On Fri12/20/20 at 1415, Day of Surgery (Day of Procedure), Routine Given 12/20/2020 2:08 PM EDT 5,000 Units ketorolac (Toradol) (15 mg/mL) injection 15 mg 15 mg, Intravenous, EVERY 6 HOURS, 3 doses, First dose on Fri12/20/20 at 1845, Last dose on Fri12/21/20 at 0645, Routine Given 12/21/2020 5:49 AM EDT 15 mg Given 12/20/2020 11:51 PM EDT 15 mg Given 12/20/2020 6:33 PM EDT 15 mg lactated ringers infusion 1,000 mL, at 100 mL/hr, Intravenous, CONTINUOUS, Starting on Fri12/20/20 at 1415, Until Fri12/20/20 at 1959, Day of Surgery (Day of Procedure) New Bag 12/20/2020 4:42 PM EDT New Bag 12/20/2020 2:04 PM EDT 1,000 mLs 100 mL/hr lactated ringers infusion 1,000 mL, at 100 mL/hr, Intravenous, CONTINUOUS, Starting on Fri12/20/20 at 1845, Until Fri12/21/20 at 1207 New Bag 12/20/2020 6:33 PM EDT 1,000 mLs 100 mL /hr phenazopyridine (Pyridium) tablet 200 mg 200 mg (rounded from 190 mg), Oral, ONCE, 1 dose, On Fri12/20/20 at 1415, Day of Surgery (Day of Procedure), Routine Given 12/20/2020 2:10 PM EDT 200 mg sodium chloride 0.9 % (flush) flush 5 mL 5 mL, Intravenous, 2 TIMES DAILY, First dose on Fri12/20/20 at 2100, Until Discontinued, Routine Given 12/21/2020 8:14 AM EDT 5 mLs Given 12/20/2020 9:00 PM EDT 5 mLs documented in this encounter Active and Recently Administered Medications Times are shown in EDT. Scheduled Medication Order 12/19/2020 12/20/2020 12/21/2020 atenoloL (Tenormin) tablet 50 mg(Linked Group 1) 50 mg, Oral, DAILY, First dose on Gayathri 12/21/20 at 0900, Until Discontinued, Routine 812 (Given - Provid er: Ramón Aguiar RN) ceFAZolin (Ancef) 2 g in dextrose 5% 100 mL infusion (COMPLETED) 2 g, Intravenous, ONCE, 1 dose, On Fri12/20/20 at 1415, Administer over 30 Minutes, Gang Boss to OR Infuse over 30 minutes., Day of Surgery (Day of Procedure), Indication for (Active or Suspected): Prophylaxis 1528 (Given - Provider: Kaushik Hough MD) chlorthalidone (Hygroten) tablet 12.5 mg(Linked Group 1) 12.5 mg, Oral, DAILY, First dose on Gayathri 12/21/20 at 0900, Until Discontinued, Routine 812 (Given - Provid er: Ramón Aguiar RN) docusate sodium (Colace) capsule 100 mg 100 mg, Oral, 2 TIMES DAILY, First dose on Fri12/20/20 at 2100, Until Discontinued, Routine 2099 (Not Given - Provider: Ashlyn King RN - Reason: Patient/family refused) 0900 (Not Given - Provider: Ramón Aguiar RN - Reason: Patient/family refused) famotidine (Pepcid) (10 mg/mL) injection 20 mg 20 mg, Intravenous, EVERY 12 HOURS SCHEDULED (2 times per day), First dose on Fri12/20/20 at 2100, Until Discontinued 2046 (Given - Provider: Ashlyn King RN) 0900 (Not Given - Provider: Ramón Aguiar, JACINTO - Reason: Patient/family refused) heparin (porcine) (5,000 units/1 mL) subcutaneous injection 5,000 Units (COMPLETED) 5,000 Units, Subcutaneous, ONCE, 1 dose, On Fri12/20/20 at 1415, Day of Surgery (Day of Procedure), Routine 1408 (Given - Provider: Danial Ma RN) ibuprofen (Advil;Motrin) tablet 600 mg(Linked Group 2) 600 mg, Oral, EVERY 6 HOURS, First dose on Gayathri 12/21/20 at 1245, Until Discontinued, - Begin after ketorolac discontinued. , Routine ketorolac (Toradol) (15 mg/mL) injection 15 mg (COMPLETED)(Linked Group 2) 15 mg, Intravenous, EVERY 6 HOURS, 3 doses, First dose on Fri12/20/20 at 1845, Last dose on Fri12/21/20 at 0645, Routine 1833 (Given - Provider: Siobhan Putnam RN)2351 (Given - Provider: Ashlyn King RN) 0549 (Given - Provider: Ashlyn King RN) phenazopyridine (Pyridium) tablet 200 mg (COMPLETED) 200 mg (rounded from 190 mg), Oral, ONCE, 1 dose, On Fri12/20/20 at 1415, Day of Surgery (Day of Procedure), Routine 1410 (Given - Provider: Danial Ma RN) sodium chloride 0.9 % (flush) flush 5 mL 5 mL, Intravenous, 2 TIMES DAILY, First dose on Fri12/20/20 at 2100, Until Discontinued, Routine 2100 (Given - Provider: Ashlyn King RN) 0814 (Given - Provider: Ramón Aguiar, JACINTO) Continuous Medication Order 12/19/2020 12/20/2020 12/21/2020 lactated ringers infusion (CANCELED) 1,000 mL, at 100 mL/hr, Intravenous, CONTINUOUS, Starting on Fri12/20/20 at 1415, Until Fri12/20/20 at 1959, Day of Surgery (Day of Procedure) 1404 (New Bag - Provider: Or pha K Francesca, RN)1641 (Paused - Provider: Kaushik Hough MD - Comment: Switch to gravity)1642 (New Bag - Provider: Kaushik Hough MD)1744 (Anesthesia Volume Adjustment - Provider: Kaushik Hough MD) lactated ringers infusion 1,000 mL, at 100 mL/hr, Intravenous, CONTINUOUS, Starting on Fri12/20/20 at 1845, Until Gayathri 12/21/20 at 1207 1833 (New Bag - Provider: Siobhan Putnam RN) PRN Medication Order 12/19/2020 12/20/2020 12/21/2020 acetaminophen (Tylenol) tablet 650 mg 650 mg, Oral, EVERY 6 HOURS PRN, Starting on Fri12/20/20 at 1825, Until Gayathri 12/21/20 at 1207, Pain, - If ordered with other PRN pain medications give Ibuprofen first, then acetaminophen, then additional agents according to the pain scale. - Maximum dose of acetaminophen is 4000 mg from all sources in 24 hours., Routine 05 (Given - Provider: Ashlyn King RN) BUpivacaine-EPINEPHrine 0.5 %-1:200,000 injection (CANCELED) ONCE PRN, Starting on Fri12/20/20 at 1652, Until Gayathri 12/21/20 at 1207, Intra-Operative (Intra-Procedure), Routine 165 (Given - Provider: Timur Burns MD - Comment: diluted with 30ml sterile saline for concentration of 0.25%. 60ml total given) HYDROmorphone (Dilaudid) (1 mg/mL) injection syringe 0.2 mg 0.2 mg, Intravenous, ONCE PRN, 1 dose, Starting on Fri12/20/20 at 2007, Until Gayathri 12/21/20 at 1207, Pain, PRN for Severe Pain (7-10) or if unable to take P.O. medication, PRN for Severe Pain (7-10) or if unable to take P.O. medication, Routine lidocaine (Xylocaine) 1% (10 mg/mL) injection 3 mg 3 mg (0.3 mL), Subcutaneous, ONCE PRN, 1 dose, Starting on Fri12/20/20 at 2007, Until Gayathri 12/21/20 at 1207, for discomfort with PIV insertion, Routine ondansetron (pf) (Zofran) (2 mg/mL) injection 4 mg 4 mg, Intravenous, EVERY 8 HOURS PRN, Starting on Fri12/20/20 at 2007, Until Fri12/21/20 at 1207, Nausea, Routine oxyCODONE (Roxicodone) tablet 5-10 mg 5-10 mg, Oral, EVERY 4 HOURS PRN, Starting on Fri12/20/20 at 1825, Until Fri12/21/20 at 1207, Pain, Severe pain (7-10), - Initial dose 5 mg. - If pain control not adequate in 60 minutes, give additional 5 mg., Routine sodium chloride 0.9 % (flush) flush 5-20 mL 5-20 mL, Intravenous, EVERY 1 MIN PRN, Starting on Fri12/20/20 at 2007, Until Fri12/21/20 at 1207, flush, Flush pertains to all indwelling lines. Flush per protocol found in the job aid using the link provided on this medication record., Routine Linked Groups Order Group 1: atenoloL (Tenormin) tablet 50 mgJump to med 50 mg, Oral, DAILY, First dose on Fri12/21/20 at 0900, Until Discontinued, Routine And chlorthalidone (Hygroten) tablet 12.5 mgJump to med 12.5 mg, Oral, DAILY, First dose on Fri12/21/20 at 0900, Until Discontinued, Routine Group 2: ketorolac (Toradol) (15 mg/mL) injection 15 mg (COMPLETED)Jump to med 15 mg, Intravenous, EVERY 6 HOURS, 3 doses, First dose on Fri12/20/20 at 1845, Last dose on Fri12/21/20 at 0645, Routine Followed by ibuprofen (Advil;Motrin) tablet 600 mgJump to med 600 mg, Oral, EVERY 6 HOURS, First dose on Fri12/21/20 at 1245, Until Discontinued, - Begin after ketorolac discontinued. , Routine documented in this encounter Care Teams Local Hazmat Driver Relationship Specialty Start Date End Date Marcy Tabor MD [address] [place], [place] [address] [address] [place] [address] PCP - General 06/18/11 documented as of this encounter
--- OUTSIDE RECORDS SUMMARY | 2024-01-08 12:19 | XMS_ITS | Clinical Summary ---
Author Organization [facility] [place] [address] Care Team Providers Care Optical Glass Sawyer Name Role Phone Marcy Tabor MD Primary Care Provider [phone] Allergies No known active allergies Medications Medication Sig Dispensed Refills Start Date End Date Status omeprazole (PRILOSEC) 20 mg capsule 04/22/2005 Active multivitamin (THERAGRAN) Tablet Take 1 tablet by mouth daily. Active ascorbic acid, vitamin C, (VITAMIN C) 500 mg Tablet, Chewable Take by mouth daily. Active cholecalciferol, Vitamin D3, 50 mcg (2,000 unit) Capsule Take 5,000 Units by mouth daily. Active acetaminophen (Tylenol) 325 mg Tablet Take 2 tablets by mouth every 6 hours as needed for Pain. 30 tablet 1 12/21/2020 Active ibuprofen (Advil;Motrin) 600 mg Tablet Take 1 tablet by mouth every 6 hours. 30 tablet 12 12/21/2020 Active losartan-hydroCHLOROt hiazide (Hyzaar) 100-25 mg tablet 03/17/2023 Active amLODIPine (Norvasc) 5 mg tablet Take 1 tablet by mouth Daily at Noon. 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 Actinic keratosis 06/18/2011 Encounters Date Type Department Care Team Description 10/20/2023 Telephone Dermatology at [address] [phone] Ashley Sahu RN from Last 3 Months Immunizations Name Administration Dates Next Due Influenza Vaccine, Whole 05/06/2006 Social History Tobacco Use Types Packs/Day Years Used Date Smoking Tobacco: Never Smokeless Tobacco: Never Alcohol Use Standard Drinks/Week Comments Never 0 (1 standard drink = 0.6 oz pur e alcohol) Sex and Gender Information Value Date Recorded Sex Assigned at Not on file Gender Identity Not on file Sexual Orientation Not on file Last Filed Vital Signs Vital Sign Reading Time Taken Comments Blood Pressure 162/69 02/07/2021 4:20 PM EDT Pulse 83 02/07/2021 4:20 PM EDT Temperature 36.2 ??C (97.1 ??F) 02/07/2021 4:20 PM ED T Respiratory Rate 16 02/07/2021 4:20 PM EDT Oxygen Saturation 98% 02/07/2021 4:20 PM EDT Inhaled Oxygen Concentration - - Weight 57.6 kg (127 lb) 01/21/2022 8:57 AM EDT Height 162.6 cm (5' 4) 01/21/2022 8:57 AM EDT Body Mass Index 21.8 01/21/2022 8:57 AM EDT Plan of Treatment Upcoming Encounters Date Type Department Care Team (Late st Contact Info) Description 04/09/2024 2:00 PM EDT Office Visit Dermatology at [address] [address] Mark Moreira MD [address] [place] [address] [place] [address] Health Maintenance Due Date Last Done Comments CT Colonography 1948 Colonoscopy 1948 Colorectal Cancer Screening 1948 FIT DNA 1948 FIT 1948 Sigmoidoscopy (10 year) with FIT yearly 1948 Sigmoidoscopy 1948 Hepatitis C Screening 01/09/1966 Tdap adult 01/09/1967 Tetanus vaccine 01/09/1967 Zoster vaccine (1 of 2) 01/09/1998 Bone Density Scan 01/09/2013 Pneumoccocal Vaccine: 65+ (1 of 1 - PCV) 01/09/2013 Covid-19 Vaccine (1 - 2022-24 season) 2023 Influenza (Flu) vaccine (1 o f 1 - Influenza standard series) 02/15/2024 05/06/2006 Medical Devices Implanted Type Area Turbogenerator Operator Device Identifier Shelf Expiration Date Model / Serial / Lot Sling Urinary Female Stress Incontinence Short Length Desara ([id number]) - [id number] Implanted:Qty: 1 on 12/20/2020 by Timur Burns MD at [facility] IMPLANTS Urinary Bladder [employer] [place] 04/25/2025 [id number] / / [id number] Advance Directives Documents on File Type Date Recorded Patient Stock Shipper Expl anation Advance Directives and Livin g Will 12/21/2020 10:01 AM 07/01/18 * Attempt Cardiopulmonary Resuscitation - Inpatient (Latest Code Status on File) Date Activated Date Inactivated Comments 12/20/2020 2:27 PM 12/21/2020 12:07 PM Question Answer Comments Code Status decision made by: Patient Care Teams Optical Glass Sawyer Relationship Specialty Start Date End Date Marcy Tabor MD [address] [place] [address] PCP - General 06/18/11
--- OUTSIDE RECORDS SUMMARY | 2024-01-08 12:19 | XMS_ITS | Encounter Summary ---
Author Organization [facility] [place] [address] Care Team Providers Care Payroll Clerk Name Role Phone Marcy Tabor MD Primary Care Provider [phone] Reason for Visit * Reason Comments Suture / Staple Removal Encounter Details Date Type Department Care Team (Late st Contact Info) Description 06/25/2011 1:00 PM EST Office Visit Dermatology [address] [place] [address] [address] [place], [place] [id number] Mark Moreira MD [address] [place] [address] [place] [address] Actinic keratosis (Primary Dx) Social History Tobacco Use Types Packs/Day Years Used Date Smoking Tobacco: Never Sex and Gender Information Value Date Recorded Sex Assigned at Not on file Gender Identity Not on file Sexual Orientation Not on file documented as of this encounter Progress Notes * Mark Moreira MD - 06/25/2011 1:19 PM EST Problem: Left lateral canthal rash, followup for suture removal and biopsy results. Patricia follows up and the biopsy came back showing actinic keratosis. However clinically this roughly 2 x 3cm patch on the left lateral canthus is more consistent with Chavez's Disease versus superficial BCCa. Assessment & Plan: Probable Chavez's versus superficial BCCa, left lateral canthus. a. Today sutures removed and then prescription was given for Aldara Cream to be applied on a q. day basis in the evenings Mondays-Fridays for six weeks, 3gm dispensed with one refill. b. RTC after she has used this product for two weeks to ascertain that she is getting a good initial reaction. c. Reassured patient that this is not melanoma. d. RTC in two weeks. Copy: Marcy Tabor MD documented in this encounter Plan of Treatment Upcoming Encounters Date Type Department Care Team (Late st Contact Info) Description 04/09/2024 2:00 PM EDT Office Visit Dermatology at [place] [address] [facility] [place] [address] Mark Moreira MD [address] [facility] [place] [address] documented as of this encounter Visit Diagnoses Diagnosis Actinic keratosis- Primary documented in this encounter Care Teams Payroll Clerk Relationship Specialty Start Date End Date Marcy Tabor MD [address] [place] [address] PCP - General 06/18/11 documented as of this encounter
--- OUTSIDE RECORDS SUMMARY | 2024-01-08 12:19 | XMS_ITS | Encounter Summary ---
[place] [address] Care Team Providers Care Resume Writer Name Role Phone Marcy Tabor MD Primary Care Provider [phone] Encounter Details Date Type Department Care Team (Latest Contact Info) Description 09/30/2023 Travel Social History Tobacco Use Types Packs/Day [...] 2:00 PM EDT Office Visit Dermatology at [place] [address] [facility] [place] [phone] Mark Moreira MD [address] [facility] [place] [address] documented as of this encounter Visit Diagnoses Not on filedocumented in this encounter Care Teams Resume Writer Relationship Specialty Start Date End Date Marcy Tabor MD [address] [place], [place] [address] PCP - General 06/18/11 documented as of this encounter
--- OUTSIDE RECORDS SUMMARY | 2024-01-08 12:19 | XMS_ITS | Encounter Summary ---
Author Organization [facility] [place] [address] Care Team Providers Care Scalping Machine Operator Name Role Phone Marcy Tabor MD Primary Care Provider Reason for Visit * Reason Comments Vaginal Prolapse Encounter Details Date Type Department Care Team (Late st Contact Info) Description 12/07/2019 9:30 AM EDT Office Visit Obstetrics and Gynecology at [facility] [place] [address] Timur Burns MD [facility] [place] [address] Prolapse of vaginal wall; JENNIFER (stress urinary incontinence, female) Social History Tobacco Use Types Packs/Day Years Used Date Smoking Tobacco: Never Smokeless Tobacco: Never Sex and Gender Information Value Date Recorded Sex Assigned at Not on file Gender Identity Not on file Sexual Orientation Not on file documented as of this encounter Last Filed Vital Signs Vital Sign Reading Time Taken Comments Blood Pressure 148/68 12/07/2019 9:27 AM EDT Pulse 72 12/07/2019 9:27 AM EDT Temperature 36 ??C (96.8 ??F) 12/07/2019 9:27 AM EDT Respiratory Rate 16 12/07/2019 9:27 AM EDT Oxygen Saturation 100% 12/07/2019 9:27 AM EDT Inhaled Oxygen Concentration - - Weight 59 kg (130 lb) 12/07/2019 9:27 AM EDT Height 160 cm (5' 3) 12/07/2019 9:27 AM EDT Body Mass Index 23.03 12/07/2019 9:27 AM EDT documented in this encounter Progress Notes * Timur Burns MD - 12/07/2019 9:30 AM EDT Female Pelvic Medicine and Reconstructive Surgery @ [facility] Follow-up visit Patient Name: Patricia Rice Patient Primary Care Provider: Marcy Tabor MD Patient Active Problem List Diagnosis Code ??? Actinic keratosis L57.0 ??? 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 AK (actinic keratosis) L57.0 ??? History of SCC (squamous cell carcinoma) of skin Z85.828 Chief Complaint: Prolapse History of Present Illness: Ms. Rice is a 69 y.o. old woman, last seen via Telehealth 10/19 for prolapse. She has been fitted for a size #3 ring pessary and subsequently switched to a #1 cube but neither were comfortable. She is now managing without a pessary and reduces the prolapse manually as needed. She reports it has progressed and sometimes looks like it's all the way out. Worse at end of the day. She had planned to address this sooner but was caring for her who last year. Past Medical History: Diagnosis Date ??? Basal cell carcinoma (BCC) ??? GERD (gastroesophageal reflux disease) ??? HTN (hypertension) ??? Hyperlipidemia ??? Osteoarthritis Past Surgical History: Procedure Laterality Date ??? TOTAL HIP ARTHROPLASTY OB History Para Term AB Living 3 3 2 1 0 3 SAB TAB Ectopic Multiple Live Births 0 0 0 0 0 # Outcome Date GA Lbr Haim/2nd Weight Sex Delivery Anes PTL Lv 3 2 Term 1 Term Outpatient Medications Marked as Taking for the 12/07/19 encounter (Office Visit) with Timur Burns MD Medication Sig Dispense Refill ??? multivitamin (THERAGRAN) Tablet Take 1 tablet by mouth daily. ??? ascorbic acid, vitamin C, (VITAMIN C) 500 mg Tablet, Chewable Take by mouth daily. ??? cholecalciferol, Vitamin D3, (cholecalciferol, Vitamin D3,) 50 mcg (2,000 unit) Capsule Take 5,000 Units by mouth daily. ??? atenolol-chlorthalidone (TENORETIC) 100-25 mg Tablet Take 0.5 tablets by mouth daily. ??? omeprazole (PRILOSEC) 20 mg capsule (Patient taking differently: Take 20 mg by mouth daily.) No Known Allergies Social History Socioeconomic History ??? Marital status: Spouse name: Not on file ??? Number of children: Not on file ??? Years of education: Not on file ??? Highest education level: Not on file Occupational History ??? Not on file Social Needs ??? Financial resource strain: Not on file ??? Food insecurity Worry: Not on file Inability: Not on file ??? Transportation needs Medical: Not on file Non-medical: Not on file Tobacco Use ??? Smoking status: Never Smoker ??? Smokeless tobacco: Never Used Substance and Sexual Activity ??? Alcohol use: Not on file ??? Drug use: Not on file ??? Sexual activity: Not on file Lifestyle ??? Physical activity Days per week: Not on file Minutes per session: Not on file ??? Stress: Not on file Relationships ??? Social connections Talks on phone: Not on file Gets together: Not on file Attends bahai service: Not on file Active member of club or organization: Not on file Attends meetings of clubs or organizations: Not on file Relationship status: Not on file ??? Intimate partner violence Fear of current or ex partner: Not on file Emotionally abused: Not on file Physically abused: Not on file Forced sexual activity: Not on file Other Topics Concern ??? Not on file Social History Narrative ??? Not on file No family history on file. OBJECTIVE: BP 148/68 Pulse 72 Temp 36 ??C (96.8 ??F) (Temporal) Resp 16 Ht 160 cm (5' 3) Wt 59 kg (130 lb) SpO2 100% BMI 23.03 kg/m?? General: normal appearing female, pleasant mood, normal speech Skin: skin of abdomen/pelvis normal appearance Respiratory: clear to auscultation bilaterally Neuro: no paraspinous tenderness; saddle sensory function (S2-4) intact in the pelvic area to touch Cardiac: regular rate and rhythm, no appreciated murmurs Gastrointestinal: no scar, no palpable masses/organomegaly, soft/nontender, no appreciable hernia Musculoskeletal: levator ani tone (0-5): 1, levator ani contraction (0-5): 2, no levator tenderness; lower extremity motor 5/5 bilaterally Pelvic: Cough stress test (empty supine): Neg (see simple cystometrics) External Genitalia: Vulva, Kipp's and Bartholin glands normal, urethra without tenderness or mass Vagina: See POPQ Atrophic epithelium (yes/no)?: no Discharge?: no Cervix: normal Bimanual (uterus/adnexa): small mobile uterus Rectovaginal: Enterocele: no Rectocele: no Anal sphincter: deferred Pelvic Organ Prolapse Quantification (POP-Q): Aa -1 Ba -1 C -2 Gh Rest strain 1, 3 PB Rest strain 1, 2 TVL 8 Ap -2 Bp -2 D -5 Simple cystometrics: PVR 20cc S1 100cc S2 150cc S3 220cc Capacity 250cc BOOKKEEPING MACHINE MECHANIC positive upon standing at capacity Results for orders placed or performed in visit on 12/07/19 Bladder Scanner Result Value Ref Range Bladder Scan (mL) 12 mL Impression: Ms. Rice is a .69 y.o. woman with stage 2 pelvic organ prolapse on exam today but good history of stage 3 prolapse The following surgical options were reviewed with the patient for treatment of her uterovaginal prolapse: 1. Vaginal hysterectomy with [place] ligament (uterosacral or sacrospinous) repair, with 70-80% success at 5 years out from surgery. 2. [place] Colpocleisis, with closure of the vagina, with 90-95% success at 5 years out from surgery. We discussed that this closed the vagina and that vaginal sexual intercourse is no longer possible. We discussed that this would have the shortest anesthetic time and lower risks. - she is interested in an obliterative procedure ?? In view of the possibility of unmasking occult JENNIFER following prolapse repair, we discussed some of the findings of the OPUS trial - 27% versus 43% of previously continent women had JENNIFER after sling versus no-sling. - 72% women with POP-reduced positive BOOKKEEPING MACHINE MECHANIC had JENNIFER post-op if they did not have a sling placed. - 5% of the women in the no-sling group underwent a sling surgery within the next year while sling removal surgery was required in 2.4% of women in the sling group. ?? We discussed that age is a risk factor for occult JENNIFER; One prospective case series found only 8% ofwomen under 60 y/o report new JENNIFER after a vaginal prolapse repair without a sling, compared to 25% above the age of 60. (Ra 1989). ?? We discussed the surgery for stress urinary incontinence would involve a sling being placed at the level of the midurethra with permanent mesh material. - She would like to continue weigh up her anti-incontinence surgery options Recommendations: Based on the patients expressed goals for management I have recommended the following: ?? Plan for return in the Fall (per patient request) for pre-op in anticipation of [place] Colpocleisis and possible anti-incontinence procedure I spent 45 minutes total with the patient, with 30 minutes of the time spent [id number] in discussing her diagnosis and reviewing options for treatment. Timur Burns MD Division of Female Pelvic Medicine/Reconstructive Surgery CC: Marcy Tabor MD No ref. provider found documented in this encounter Plan of Treatment Upcoming Encounters Date Type Department Care Team (Late st Contact Info) Description 04/09/2024 2:00 PM EDT Office Visit Dermatology at [address] [phone] Mark Moreira MD [address] [place] [address] DERMATOLOGY [place], [place] [id number] documented as of this encounter Procedures Procedure Name Priority Date/Time Associated Diagnosis Comments BLADDER SCANNER Routine 12/07/2019 Prolapse of vaginal wall documented in this encounter Results * Bladder Scanner (12/07/2019) Bladder Scan (mL) 12 mL Timur Burns MD URO PROC W/O RFL ORD ERABLES documented in this encounter Visit Diagnoses Diagnosis Prolapse of vaginal wall Unspecified prolapse of vaginal barron JENNIFER (stress urinary incontinence, female) Female stress incontinence documented in this encounter Care Teams Scalping Machine Operator Relationship Specialty Start Date End Date Marcy Tabor MD [address] [place] [address] PCP - General 06/18/11 documented as of this encounter
--- OUTSIDE RECORDS SUMMARY | 2024-01-08 12:19 | XMS_ITS | Encounter Summary ---
[place] [address] Care Team Providers Care Etl Manager Name Role Phone Marcy Tabor MD Primary Care Provider [phone] Encounter Details Date Type Department Care Team (Latest Contact Info) Description 10/07/2023 Travel Social History Tobacco Use Types Packs/Day [...] 2:00 PM EDT Office Visit Dermatology at [place] [address] [facility] [place] [phone] Mark Moreira MD [address] [facility] [place] [address] documented as of this encounter Visit Diagnoses Not on filedocumented in this encounter Care Teams Etl Manager Relationship Specialty Start Date End Date Marcy Tabor MD [address] [place], [place] [address] PCP - General 06/18/11 documented as of this encounter
--- OUTSIDE RECORDS SUMMARY | 2024-01-08 12:19 | XMS_ITS | Encounter Summary ---
[place] [address] Care Team Providers Care Heat Pump Installer Name Role Phone Marcy Tabor MD Primary Care Provider Reason for Visit * Reason Comments Follow-up Skin Lesion Encounter Details Date Type Department Care Team (Late st Contact Info) Description 10/07/2023 4:30 PM EDT Office Visit Dermatology at [address] [phone] Mark Moreira MD [address] [place] [address] [place] [address] History of SCC (squamous cell carcinoma) of [...] Progress Notes * Mark Moreira MD - 10/07/2023 4:30 PM EDT PROBLEM: 1. 6-month skin checkup 2. 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 3. 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 History of SCCA right dorsal hand October 2021 5. Status post 5-FU applied twice daily for 2 weeks to hands, and twice daily for 1 week to face, then 3 weeks off repeat for 3 cycles daily for 1 week Patricia follows up for a 6-month check. Use the 5-FU as prescribed to her hands and fingers twice daily for 2 weeks, and she used the 5-FU to her face 1 week on twice daily, then 3 weeks off for total of 3 cycles. She had a good response but she has noted a new lesion on the right lateral arm. Physical examination reveals a hyperkeratotic nodule on the right lateral arm This is concerning for SCC she has a significant reduction in the actinic keratoses on the face anddorsal hands with sweats if you left today. Assessment plan: Probable SCCA right lateral arm 1. This site was anesthetized and removed with shave C&D 2. After curettage site measured 1 cm in diameter 3. Wound care instructions and supplies given 4. Return to clinic in 6 months for repeat check. 5. Will notify the patient about her biopsy results in 10 to 14 days. Actinic keratoses 1. Good response to recent 5-FU courses. 2. Repeat courses to face and hands will call in another tube fluorouracil 5% cream 40 g tube. Apply as described above in the first 3. LN 2 x 2 applied to several resistant actinic's today on hands and face. Total of 7 treated. CC: Marcy Tabor MD documented in this encounter Plan of Treatment Upcoming Encounters Date Type Department Care Team (Late st Contact Info) Description 04/09/2024 2:00 PM EDT Office Visit Dermatology at [place] [address] [place] [phone] Mark Moreira MD [address] [facility] [place] [address] documented as of this encounter Visit Diagnoses Diagnosis History of SCC (squamous cell carcinoma) of skin Personal history of other malignant neoplasm of skin AK (actinic keratosis) Actinic keratosis documented in this encounter Care Teams Heat Pump Installer Relationship Specialty Start Date End Date Marcy Tabor MD [address] [facility] [place] [address] PCP - General 06/18/11 documented as of this encounter
--- OUTSIDE RECORDS SUMMARY | 2024-01-08 12:19 | XMS_ITS | Encounter Summary ---
[place] [address] Care Team Providers Care Hand Shaker Name Role Phone Marcy Tabor MD Primary Care Provider [phone] Reason for Visit * Reason Comments Follow-up Encounter Details Date Type Department Care Team (Late st Contact Info) Description 09/27/2016 1:30 PM EDT Office Visit Dermatology at [address] [phone] Mark Moreira MD [address] [facility] DERMATOLOGY [place], [place] [phone] History of SCC (squamous cell carcinoma) of skin; AK (actinic keratosis) Social History Tobacco Use Types Packs/Day Years Used Date Smoking Tobacco: Never Sex and Gender Information Value Date Recorded Sex Assigned at Not on file Gender Identity Not on file Sexual Orientation Not on file documented as of this encounter Progress Notes * Mark Moreira MD - 09/27/2016 1:30 PM EDT PROBLEMS: 1. Repeat skin checkup. 2. History of probable Chavez's disease versus superficial BCCA, left lateral canthus, status post 6 weeks of Aldara cream treatment, 11/2011. 3. Status post shave Cand D tx of probable Chavez's versus superficial BCCA, right cheek, 06/2016. Patricia follows up and is enjoying detention from [employer]. Unfortunately, she just lost her father and she is helping to take care of things with his place. She has noted good healing of the 1.2 cm erythematous patch on the right cheek. Physical examination shows fading and near total healing now of the suspected Chavez's versus superficial BCCA on the right lateral cheek. Examination of the face, the neck, the hands and forearms reveals quite a number of actinic keratoses on the dorsum of the hands, actinic keratosis on the left lateral canthus, as well as a few spots on the left cheek and over the bridge of her nose. A total of 7 are noted. ASSESSMENT/PLAN: 1. History of non-melanoma cutaneous malignancies. a. No evidence of recurrence at above-noted treatment sites. 2. Actinic keratoses, hands and face. a. LN2 x2 applied to 7 sites. b. Patient reassured about remainder of benign skin examination. c. Return to clinic in another 6 months for repeat check. If doing well at that point, will go to once yearly. CC: Marcy Tabor MD documented in this encounter Plan of Treatment Upcoming Encounters Date Type Department Care Team (Late st Contact Info) Description 04/09/2024 2:00 PM EDT Office Visit Dermatology at [address] [phone] Mark Moreira MD [address] [place] [address] [place] [address] documented as of this encounter Visit Diagnoses Diagnosis History of SCC (squamous cell carcinoma) of skin Personal history of other malignant neoplasm of skin AK (actinic keratosis) Actinic keratosis documented in this encounter Care Teams Hand Shaker Relationship Specialty Start Date End Date Marcy Tabor MD [address] [facility] [address] [place] [address] PCP - General 06/18/11 documented as of this encounter
--- OUTSIDE RECORDS SUMMARY | 2024-01-08 12:19 | XMS_ITS | Encounter Summary ---
[place] [address] Care Team Providers Care Small Engine Trainer Name Role Phone Marcy Tabor MD Primary Care Provider [phone] Encounter Details Date Type Department Care Team (Latest Contact Info) Description 10/21/2022 Travel Social History Tobacco Use Types Packs/Day [...] 2:00 PM EDT Office Visit Dermatology at [place] [address] [facility] [place] [address] Mark Moreira MD [address] [facility] [place] [address] documented as of this encounter Visit Diagnoses Not on filedocumented in this encounter Care Teams Small Engine Trainer Relationship Specialty Start Date End Date Marcy Tabor MD [address] [place], [place] [address] PCP - General 06/18/11 documented as of this encounter
--- OUTSIDE RECORDS SUMMARY | 2024-01-08 12:19 | XMS_ITS | Encounter Summary ---
[place] [address] Care Team Providers Care Nutrition Associate Name Role Phone Marcy Tabor MD Primary Care Provider [phone] Reason for Visit * Reason Comments Follow-up Encounter Details Date Type Department Care Team (Late st Contact Info) Description 04/19/2019 10:15 AM EST Office Visit Dermatology at [address] [phone] Mark Moreira MD [address] [place] [address] DERMATOLOGY [place], [place] [id number] History of SCC (squamous cell carcinoma) of skin; AK (actinic keratosis) Social History Tobacco Use Types Packs/Day Years Used Date Smoking Tobacco: Never Smokeless Tobacco: Never Sex and Gender Information Value Date Recorded Sex Assigned at Not on file Gender Identity Not on file Sexual Orientation Not on file documented as of this encounter Progress Notes * Mark Moreira MD - 04/19/2019 10:15 AM EST PROBLEM: 1. ??Repeat skin checkup. 2. 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 3. 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 Patricia follows up for a repeat 6-month check. She continues to to enjoy correction from [employer]. It has been 2 years since she had hyperkeratotic actinics treated on the dorsal hands and she has a number of hyperkeratotic lesions developing there again. Is also been 2 years since she lost her . Physical examination reveals 6 actinic keratoses present over the dorsal hands bilaterally and 1 additional site on the upper lip at the vermilion border centrally. She has no evidence of recurrent Chavez's disease either at the left lateral canthus nor on the right cheek. She does not desire examination of the chest or back. Assessment and plan: Actinic keratosis facial and upper cutaneous lip at the vermilion border 1. LN 2 x 2 applied each of 7 sites 2. Return to clinic in 6 months for repeat check. 3. Hold in reserve the option of 5-FU for facial/dorsal hand lesions. History of nonmelanoma cutaneous malignancies 1. No recurrence of recurrence 2. Patient reassured CC: Marcy Tabor MD documented in this encounter Plan of Treatment Upcoming Encounters Date Type Department Care Team (Late st Contact Info) Description 04/09/2024 2:00 PM EDT Office Visit Dermatology at [address] [phone] Mark Moreira MD [address] [place] [address] [place] [address] documented as of this encounter Visit Diagnoses Diagnosis History of SCC (squamous cell carcinoma) of skin Personal history of other malignant neoplasm of skin AK (actinic keratosis) Actinic keratosis documented in this encounter Care Teams Nutrition Associate Relationship Specialty Start Date End Date Marcy Tabor MD [address] [place] [address] [address] [facility] 1 [place] [address] PCP - General 06/18/11 documented as of this encounter
--- OUTSIDE RECORDS SUMMARY | 2024-01-08 12:19 | XMS_ITS | Encounter Summary ---
[place] [address] Care Team Providers Care Commercial Installer Name Role Phone Marcy Tabor MD Primary Care Provider [phone] Reason for Visit * Reason Comments Skin Check Encounter Details Date Type Department Care Team (Late st Contact Info) Description 04/25/2020 10:30 AM EST Office Visit Dermatology at [address] [phone] Mark Moreira MD [address] [place] [address] [place] [address] History of SCC (squamous cell carcinoma) of skin; AK (actinic keratosis) Social History Tobacco Use Types Packs/Day Years Used Date Smoking Tobacco: Never Smokeless Tobacco: Never Sex and Gender Information Value Date Recorded Sex Assigned at Not on file Gender Identity Not on file Sexual Orientation Not on file documented as of this encounter Progress Notes * Mark Moreira MD - 04/25/2020 10:30 AM EST PROBLEM: 1. ??Repeat skin checkup. 2. 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 3. 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 Patricia follows up for a repeat skin checkup. It has been a year since I saw her last. She continues to enjoy alf from [employer]. She has some new actinic's on the dorsal hands butmany fewer than she is had in the past. Physical examination reveals a pleasant 70-year-old woman who has 2 actinic's on the left and 2 actinic's on the right dorsal hand. Examination of the face and the site of the prior treatments is benign. Assessment plan: Actinic keratosis dorsal hands 1. LN2 x2 applied to each of 4 sites 2. Patient reassured about the remainder of her benign skin examination 3. Return to clinic in a year for repeat check. History of nonmelanoma cutaneous malignancies 1. No evidence of recurrence 2. Patient reassured CC: Marcy Tabor documented in this encounter Plan of Treatment Upcoming Encounters Date Type Department Care Team (Late st Contact Info) Description 04/09/2024 2:00 PM EDT Office Visit Dermatology at [address] [place] [address] Mark Moreira MD [address] [facility] [place] [address] documented as of this encounter Visit Diagnoses Diagnosis History of SCC (squamous cell carcinoma) of skin Personal history of other malignant neoplasm of skin AK (actinic keratosis) Actinic keratosis documented in this encounter Care Teams Commercial Installer Relationship Specialty Start Date End Date Marcy Tabor MD [address] [facility] [facility] 1 [place] [address] PCP - General 06/18/11 documented as of this encounter
--- OUTSIDE RECORDS SUMMARY | 2024-01-08 12:19 | XMS_ITS | Encounter Summary ---
[place] [address] Care Team Providers Care Fibre Cement Moulder Name Role Phone Marcy Tabor MD Primary Care Provider [phone] Reason for Visit * Reason Comments Annual Exam Encounter Details Date Type Department Care Team (Late st Contact Info) Description 04/29/2022 9:00 AM EST Office Visit Dermatology at [address] [phone] Mark Moreira MD [address] [place] [address] DERMATOLOGY [place], [place] [phone] History of SCC (squamous cell carcinoma) of [...] Progress Notes * Mark Moreira MD - 04/29/2022 9:00 AM EST PROBLEM: 1. ??6-month skin checkup 2. 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 3. 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 History of SCCA right dorsal hand October 2021 Patricia follows up for 6-month skin checkup. Physical examination reveals a pleasant 72-year-old woman who has no evidence of recurrent SCC of the right dorsal hand. She does however have diffuse actinic damage over both dorsal hands as well ascat scratches from her kitten. She has actinic keratoses present on the nose the temples and the forehead a total of 6 sites are noted. She does not desire total-body skin examination today but would like to have this done at her next visit in 6 months time. Assessment plan: Actinic keratosis dorsal hands 1. Begin 5-fluorouracil applying a thin layer to the dorsal hands twice daily for 2 weeks then discontinue. Dispense 40 g with 0 refills 2. This will be called into [facility] in [place]. Actinic keratosis facial 1. LN 2 x 2 applied to each of 6 facial sites 2. Return to clinic in 6 months for repeat check. History of nonmelanoma cutaneous malignancies 1. No evidence of recurrence at prior treatment sites. CC: Marcy.MD [place] documented in this encounter Plan of Treatment Upcoming Encounters Date Type Department Care Team (Late st Contact Info) Description 04/09/2024 2:00 PM EDT Office Visit Dermatology at [address] [place] [phone] Mark Moreira MD [address] [place] [address] [place] [address] documented as of this encounter Visit Diagnoses Diagnosis History of SCC (squamous cell carcinoma) of skin Personal history of other malignant neoplasm of skin AK (actinic keratosis) Actinic keratosis documented in this encounter Care Teams Fibre Cement Moulder Relationship Specialty Start Date End Date Marcy Tabor MD [address] [place] [address] PCP - General 06/18/11 documented as of this encounter
--- OUTSIDE RECORDS SUMMARY | 2024-01-08 12:19 | XMS_ITS | Encounter Summary ---
[place] [address] Care Team Providers Care Milk Drier Name Role Phone Marcy Tabor MD Primary Care Provider [phone] Reason for Visit * Consultation (Routine) - Closed Specialty Diagnoses / Procedures Referred By Dain vasquez Referred To Contact Obstetrics and Gynecology Diagnoses Cystocele, midline Unspecified symptoms and signs involving the genitourinary system SYMPTOMATIC CYSTOCELE Carla Hansen MD [address] [place] [address] [facility] [address] [place] [address] Referral ID Status Reason Start Date Expiration Date V isits Requested Visits Authorized [id number] Closed Consult, Test & [facility] PCP Updated and/or Approved 07/12/2019 07/11/2020 1 1 Encounter Details Date Type Department Care Team (Late st Contact Info) Description 10/20/2019 8:00 AM EDT TH Visit (TeleHealth) Obstetrics [place] [address] Timur Burns MD [facility] [place] [address] Uterovaginal prolapse, incomplete (Primary Dx) Social History Tobacco Use Types Packs/Day Years Used Date Smoking Tobacco: Never Smokeless Tobacco: Never Sex and Gender Information Value Date Recorded Sex Assigned at Not on file Gender Identity Not on file Sexual Orientation Not on file documented as of this encounter Progress Notes * Timur Burns MD - 10/20/2019 8:00 AM EDT Female Pelvic Medicine and Reconstructive Surgery @ [facility] Telephone Office Visit Patient Name: Patricia Rice Patient Primary Care Provider: Marcy Tabor MD Patricia Rice verbally consented to conduct this clinical encounter by telephone. She acknowledges that her insurance may be billed for the care provided, similar to an in person appointment. [place] Prior to beginning the visit, I confirmed the patients name and date of . I obtained the patient's consent to receiving health care services at [facility] through telemedicine. We discussed the opportunities and limitations of delivering health care services through telemedicine. I told the patient that the telemedicine service is being delivered over a secure connection, except in the event of emergency conditions when such requirements may be waived. Patient agreed to theparticipation of other individuals assisting with their care by telemedicine, if indicated. Patientinformed that telemedicine informed consent form is available for patient's review in [facility] patientportal, [facility]. Patient Active Problem List Diagnosis Code ??? Actinic keratosis L57.0 ??? 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 AK (actinic keratosis) L57.0 ??? History of SCC (squamous cell carcinoma) of skin Z85.828 Chief Complaint: Prolapse History of Present Illness: Ms. Rice is a 69 y.o. old para 3 woman, seen at the kind request ofDr. Carla Hansen. She presents for evaluation and assessment of prolapse of about [address] Hansen fitted her for a size #3 ring pessary and she subsequently switched to a #1 cube but neither were comfortable. She is now managing without a pessary and reduces the prolapse manually as needed. She reports it has progressed and sometimes looks like it's all the way out. She had planned to address thissooner but was caring for her who last year. She reports urinary frequency q1-2 hours and urgency with occasional UUI. Has to reduce the prolapse to empty bladder sometimes. Denies JENNIFER now but reports she used to have mild JENNIFER prior to the prolapse. Had x3 SVDs, largest baby 8 lbs 15oz. Denies forceps but reports needed a lot of stitches for all of them. Urinary tract history Patient denies history of recurrent urinary tract infection. Patient denies history of pyelonephritis. Patient denies history of urinary tract abnormality. Patient denies history of nephrolithiasis. Patient denies history of hematuria. Bladder Function Daytime frequency of voiding: Q1-2 hours Nocturia: x1/night Urinary incontinence: yes a few times a week UUI. No JENNIFER Pad use (per day) and type: X1-2 Previous urinary incontinence treatment (Medical/Behavioral/Surgical): No Bladder irritants: Fluid intake: 64 oz/day water plus large glass of fruit juice Caffeine intake: No cups/day Cigarette smoking (packs, time, if quit when): no Alcohol: no ICIQ-UI Short Form How often do you leak urine? Never 0 1 About once a week or less often 1 2-3 times a week 2 About once a day 3 Several times a day 4 All the time 5 How much urine do you usually leak? None 0 A small amount 1 2 A moderate amount 2 A large amount 3 Overall, how much does leaking interfere with your everyday life? 4 (0 not at all, 10 a great deal) ICIQ Sum the scores: 7 When does urine leak? (Check all that apply) Never - Urine does not leak x Leaks before you can get to the toilet Leaks when you cough or sneeze Leaks when you are asleep Leaks when you are physically active/exercising Leaks when you have finished urinating or are dressed Leaks for no obvious reason Leaks all the time Storage symptoms x Urinary frequency Nocturia Stress urinary incontinence - leakage with exertion, cough/sneeze x Urge urinary incontinence - leakage preceded immediately by urge to void Noctural enuresis - NOT IN ASSOCIATION WITH URGE Continuous urinary leakage Other: (e,g. giggle, intercourse-related) Bladder sensation Normal - aware of filling and increased sensation up to desire to void x Increased - feels an early and persistent need to void Reduced - aware of filling but NOT definite desire to void Absent - NO sensation of filling or need to void Non-specific - No specific bladder symptoms during filling or void Voiding symptoms None x Slow stream Spraying x Intermittent stream - stop/start on > 1 occasion during void Straining - muscular effort to initiate, maintain OR improve stream Terminal dribble - prolonged final part of void Feeling of incomplete emptying Pelvic Organ Prolapse (POP) Any personally see or feel a vaginal bulge? yes What precipitates prolapse or symptoms of prolapse? straining Previous treatment for POP (physical therapy, pessary, surgery)?: pessary Bowel Function Number of bowel movements (day/week): BM daily, normal consistency Fecal incontinence (yes/no): no Number of fecal incontinent episodes (day/week): n/a Last Colonoscopy: yes - Defecatory Dysfunction: Symptom Presence Symptom Presence NONE x Incomplete Emptying Straining Infrequent stools (<3 week) Splinting Abdominal discomfort Loose stools Defecatory urgency Hard stools Other Sexual Function Active?: Not a priority since passed Pain with intercourse?: n/a If yes, insertional/Deep? n/a Desire to retain sexual function? no Last PAP smear: 2 years ago Past Medical History: Diagnosis Date ??? Basal [...] PTL Lv 3 2 Term 1 Term No outpatient medications have been marked as taking for the 10/20/19 encounter (TH Visit (TeleHealth)) with Timur Burns MD. No Known Allergies Social History Socioeconomic History [...] file Gets together: Not on file Attends judaism service: Not on file Active member of [...] on file No family history on file. Family history: denies history of gynecologic cancer ROS: Review of all other systems negative except for those mentioned above or indicated below: System Symptom Presence Constitutional Weight Loss Weight gain Eyes History of glaucoma ENT/Mouth Mouth sores/Dry mouth Cardiovascular Chest pain Leg swelling Respiratory Wheezing SOB GI Nausea/vomiting Abdominal pain Skin/Breast Breast masses Rash/ulcer Musculoskeletal Muscle weakness Trouble Walking Neurological Dizziness/falling Numbness Psychiatric Depression Anxiety Endocrine Abnormal thirst Hot flashes Hematologic Frequent bruising History of blood transfusions no Blood clots (DVT / PE) no Prior problems w/ anesthesia no Outside medical records reviewed: yes OBJECTIVE: Not performed Impression: Ms. Rice is a .69 y.o. woman with at least 2 or 3 pelvic organ prolapse I reviewed the anatomy and physiology of prolapse. We discussed options for management including: Continued observation, conservative management including pelvic floor exercises (supervised or unsupervised), pessary and/or procedures. - since she has already tried using the pessary without success, she wants to discuss surgery The following surgical options were reviewed with the patient for treatment of her uterovaginal prolapse: 1. Vaginal hysterectomy with tyonek ligament (uterosacral or sacrospinous) repair, with 70-80% success at 5 years out from surgery. 2. Transvaginal hysteropexy with tyonek ligament (uterosacral or sacrospinous) suspension, with similar success rates to option #1, except without the morbidity of a hysterectomy. This is discussed in view of her h/o normal PAPs and no PMB. 3. Supra-cervical hysterectomy with laparoscopic mesh sacral colpopexy, with 90% success at 5 yearsout from surgery, but increased risks for complications of bowel obstruction, mesh erosion and longer anesthetic time. 4. [place] Colpocleisis, with closure of the vagina, with 90-95% success at 5 years out from surgery. We discussed that this closed the vagina and that vaginal sexual intercourse is no longer possible. We discussed that this would have the shortest anesthetic time and lower risks. - she is interested in an obliterative procedure In view of the possibility of unmasking occult JENNIFER following prolapse repair, we discussed some of the findings of the OPUS trial - 27% versus 43% of previously continent women had JENNIFER after sling versus no-sling. 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 - 5% of the women in the no-sling group underwent a sling surgery within the next year while sling removal surgery was required in 2.4% of women in the sling group. We discussed that age is a risk factor for occult JENNIFER; One prospective case series found only 8% ofwomen under 60 y/o report new JENNIFER after a vaginal prolapse repair without a sling, compared to 25% above the age of 60. (Ra 1989). We discussed the surgery for stress urinary incontinence would involve a sling being placed at the level of the midurethra with permanent mesh material. - She would like to weigh up her anti-incontinence surgery options and wait until after office examto decide Recommendations: Based on the patients expressed goals for management I have recommended the following: ?? Office visit as for physical exam, simple cystometrics and likely pre-op counseling with consents I spent 40 minutes total on the call with the patient, with 40 minutes of the time spent discussingher diagnosis and reviewing options for treatment. Call start: [phone] Call end: [phone] Timur Burns MD Division of Female Pelvic Medicine/Reconstructive Surgery documented in this encounter Plan of Treatment Upcoming Encounters Date Type Department Care Team (Late st Contact Info) Description 04/09/2024 2:00 PM EDT Office Visit Dermatology at [address] [place] [address] Mark Moreira MD [address] [place] [address] documented as of this encounter Visit Diagnoses Diagnosis Uterovaginal prolapse, incomplete- Primary documented in this encounter Care Teams Milk Drier Relationship Specialty Start Date End Date Marcy Tabor MD [address] [facility] 1 [place] [address] PCP - General 06/18/11 documented as of this encounter
--- OUTSIDE RECORDS SUMMARY | 2024-01-08 12:19 | XMS_ITS | Encounter Summary ---
[place] [address] Care Team Providers Care Instructor Of Sociology Name Role Phone Marcy Tabor MD Primary Care Provider [phone] Encounter Details Date Type Department Care Team (Latest Contact Info) Description 10/28/2022 Travel Social History Tobacco Use Types Packs/Day [...] 2:00 PM EDT Office Visit Dermatology at [place] [address] [place] [address] Mark Moreira MD [address] [facility] [place] [address] documented as of this encounter Visit Diagnoses Not on filedocumented in this encounter Care Teams Instructor Of Sociology Relationship Specialty Start Date End Date Marcy Tabor MD [address] [place], [place] [address] PCP - General 06/18/11 documented as of this encounter
--- OUTSIDE RECORDS SUMMARY | 2024-01-08 12:19 | XMS_ITS | Encounter Summary ---
[place] [address] Care Team Providers Care Merchandiser Retail Representative Name Role Phone Marcy Tabor MD Primary Care Provider [phone] Reason for Visit * Reason Comments Skin Check Encounter Details Date Type Department Care Team (Late st Contact Info) Description 05/01/2023 11:30 AM EST Office Visit Dermatology at [address] [phone] Mark Moreira MD [address] [place] [address] DERMATOLOGY [place], [place] [id number] History of SCC (squamous cell carcinoma) of [...] Progress Notes * Mark Moreira MD - 05/01/2023 11:30 AM EST PROBLEM: 1. 6-month skin checkup 2. 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 3. 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 History of SCCA right dorsal hand October 2021 Patricia follows up for a 6-month check. She has noticed a worsening of the actinic damage on the dorsal hands, as well as some sites on the face. Physical examination reveals diffuse actinic damage of the dorsal hands and fingers stopping at thewrists. She also has actinic's on the nasal bridge and temples bilaterally. Assessment plan: Actinic keratoses dorsal hands fingers localized areas on face 1. Begin 5-fluorouracil 5% cream applying twice daily for 2 weeks to dorsal hands bilaterally then discontinue. After 1 month may repeat if necessary 2. Begin 5-fluorouracil 5% cream applying twice daily for 1 week on 3 weeks off repeat for total of3 cycles to areas on face. Dispense 40 g with 0 refills. Written prescription given to patient 3. Accessed [employer] website to find a an affordable $44 [id number] cost for this medication for the patient at [facility] in [place]. 4. Patient will call with any questions or concerns 5. Return to clinic in 6 months for repeat check CC: Marcy Tabor MD documented in this encounter Plan of Treatment Upcoming Encounters Date Type Department Care Team (Late st Contact Info) Description 04/09/2024 2:00 PM EDT Office Visit Dermatology at [address] [place] [phone] Mark Moreira MD [address] [place] [address] [place] [address] documented as of this encounter Visit Diagnoses Diagnosis History of SCC (squamous cell carcinoma) of skin Personal history of other malignant neoplasm of skin AK (actinic keratosis) Actinic keratosis documented in this encounter Care Teams Merchandiser Retail Representative Relationship Specialty Start Date End Date Marcy Tabor MD [address] [place] [address] [place] [address] PCP - General 06/18/11 documented as of this encounter
--- OUTSIDE RECORDS SUMMARY | 2024-01-08 12:19 | XMS_ITS | Encounter Summary ---
[place] [address] Care Team Providers Care Phlebotomist Prn Name Role Phone Marcy Tabor MD Primary Care Provider [phone] Reason for Visit * Reason Comments Follow-up Encounter Details Date Type Department Care Team (Late st Contact Info) Description 08/28/2011 1:45 PM EDT Office Visit Dermatology [address] [place] [address] [address] [place], [place] [phone] Mark Moreira MD [address] [place] [address] [place] [address] Chavez's disease (Primary Dx) Social History Tobacco Use Types Packs/Day Years Used Date Smoking Tobacco: Never Sex and Gender Information Value Date Recorded Sex Assigned at Not on file Gender Identity Not on file Sexual Orientation Not on file documented as of this encounter Progress Notes * Mark Moreira MD - 08/28/2011 1:51 PM EDT Problem: Followup probably Chavez's disease versus superficial BCCA, left lateral canthus, status post six weeks of Aldara cream. Patricia follows up and is having a very good mild reaction. She has been through now six weeks and has about three packets of the Aldara cream left. Physical examination shows mild erythema with more erythema at the lateral aspect. She has been applying the Aldara cream on an at bedtime basis Mondays, Wednesdays and Fridays. Assessment and Plan: Status post six-week course of Aldara cream, therapy course for Chavez's/superficial BCCA, left lateral canthus. a. Continue current regimen for one more week, then discontinue. This will give her two packets left. b. Return to clinic in three months for repeat check. c. Expressed my optimism that this should allow this area to heal well now. Copy: Marcy Tabor M.D. 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
--- OUTSIDE RECORDS SUMMARY | 2024-01-08 12:19 | XMS_ITS | Encounter Summary ---
[place] [address] Care Team Providers Care Crew Lead Name Role Phone Marcy Tabor MD Primary Care Provider [phone] Reason for Visit * Reason Comments Follow-up Encounter Details Date Type Department Care Team (Late st Contact Info) Description 06/21/2016 11:00 AM EST Office Visit Dermatology at [address] [phone] Mark Moreira MD [address] [place] [address] DERMATOLOGY [place], [place] [phone] History of SCC (squamous cell carcinoma) of skin Social History Tobacco Use Types Packs/Day Years Used Date Smoking Tobacco: Never Sex and Gender Information Value Date Recorded Sex Assigned at Not on file Gender Identity Not on file Sexual Orientation Not on file documented as of this encounter Progress Notes * Mark Moreira MD - 06/21/2016 11:00 AM EST PROBLEM: 1. Right cheek lesion. 2. History of probable Chavez's disease, versus superficial BCC of left lateral canthus, status post 6 weeks of Aldara cream treatment 11/2011. Patricia follows up and has noted an erythematous patch that has developed at the site of an actinic keratosis treated in 12/2014. The patient was last seen in my office in 12/2014 at which time I treated [address] act[address] with LN2 on her left confucianist, her right upper lip, and her right cheek. Physical examination reveals a 1.2 cm erythematous patch concerning for Chvaez's versus superficial BCCA on her right cheek. A/P: 1. Chavez's disease versus superficial BCCA. a. After obtained informed consent site was anesthetized and removed with shave C and D. b. Not submitted for pathologic analysis. c. Wound care instructions and supplies given. 2. Recommended we see her again in another 3 months' for repeat check. CC: Marcy Tabor MD documented in this encounter Plan of Treatment Upcoming Encounters Date Type Department Care Team (Late st Contact Info) Description 04/09/2024 2:00 PM EDT Office Visit Dermatology at [place] [address] [place] [address] Mark Moreira MD [address] [facility] [place] [address] documented as of this encounter Visit Diagnoses Diagnosis History of SCC (squamous cell carcinoma) of skin Personal history of other malignant neoplasm of skin documented in this encounter Care Teams Crew Lead Relationship Specialty Start Date End Date Marcy Tabor MD [address] [facility] 1 [place] [address] PCP - General 06/18/11 documented as of this encounter
--- OUTSIDE RECORDS SUMMARY | 2024-01-08 12:19 | XMS_ITS | Encounter Summary ---
[place] [address] Care Team Providers Care President Of The [place] Name Role Phone Marcy Tabor MD Primary Care Provider [phone] Reason for Visit * Reason Comments Annual Exam Encounter Details Date Type Department Care Team (Late st Contact Info) Description 04/26/2021 8:15 AM EST Office Visit Dermatology at [address] [phone] Mark Moreira MD [address] [place] [address] DERMATOLOGY [place], [place] [phone] History of SCC (squamous cell carcinoma) of [...] Progress Notes * Mark Moreira MD - 04/26/2021 8:15 AM EST PROBLEM: 1. ??Annual skin checkup 2. 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 3. 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 Patricia follows up today for her yearly skin checkup. Is been a year since I saw her last. She is enjoying intermediate from [facility]. She has a couple of new actinic's on dorsal hands. Many fewer than what she has had in the past. Physical examination reveals a pleasant 71-year-old woman who is a benign examination of the head and the neck the the hands the arms and forearms. She has actinic's on both the left and right dorsalhands a total of 2 are new noted. Assessment plan: Actinic keratoses dorsal hands 1. LN 2 x 2 applied to each of 2 sites History of nonmelanoma cutaneous menses 1. No evidence of recurrence 2. Patient reassured CC: Marcy Tabor MD documented in this encounter Plan of Treatment Upcoming Encounters Date Type Department Care Team (Late st Contact Info) Description 04/09/2024 2:00 PM EDT Office Visit Dermatology at [address] [place] [address] Mark Moreira MD [address] [place] [address] [place] [address] documented as of this encounter Visit Diagnoses Diagnosis History of SCC (squamous cell carcinoma) of skin Personal history of other malignant neoplasm of skin AK (actinic keratosis) Actinic keratosis documented in this encounter Care Teams President Of The [place] Relationship Specialty Start Date End Date Marcy Tabor MD [address] [place] [address] [place] [address] PCP - General 06/18/11 documented as of this encounter
--- OUTSIDE RECORDS SUMMARY | 2024-01-08 12:19 | XMS_ITS | Encounter Summary ---
[place] [address] Care Team Providers Care Paper Bag Machine Operator Name Role Phone Marcy Taobr MD Primary Care Provider [phone] Reason for Visit * Reason Comments Skin Check Encounter Details Date Type Department Care Team (Late st Contact Info) Description 10/26/2021 9:15 AM EDT Office Visit Dermatology at [address] [phone] Mark Moreira MD [address] [place] [address] DERMATOLOGY [place], [place] [phone] History of SCC (squamous cell carcinoma) of [...] Progress Notes * Mark Moreira MD - 10/26/2021 9:15 AM EDT PROBLEM: 1. ??Early annual skin checkup 2. 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 3. ??Status post shave C and D treatment of probable Chavez's disease versus superficial BCCA, right cheek, 06/2016 Patricia follows up and is now 71. She has a new cat. She has also noted some new lesions on her dorsalhands on her face that concern her. Physical examination reveals hyperkeratotic actinic's versus early SCCA's present 2 on the right dorsal hand. She has a number she has 1 on the left and she has several on her face nose and cheek. Assessment plan: Actinic keratoses versus early SCCA's, right dorsal hand 1. After obtaining informed consent sites were anesthetized removed with shave C&D 2. After curettage site measured 8 mm in diameter Actinic keratoses left dorsal hand and facial sites 1. LN 2 x 2 applied each of 5 sites 2. Return to clinic in 1 month for repeat check on the healing of the sites. Return to clinic also in 6 months for recheck and will plan every 6 month follow-ups for a time andthen 1 go back to once yearly if possible. CC: Marcy Tabor MD documented in this encounter Plan of Treatment Upcoming Encounters Date Type Department Care Team (Late st Contact Info) Description 04/09/2024 2:00 PM EDT Office Visit Dermatology at [address] [phone] Mark Moreira MD [address] [facility] [place] [address] documented as of this encounter Visit Diagnoses Diagnosis History of SCC (squamous cell carcinoma) of skin Personal history of other malignant neoplasm of skin AK (actinic keratosis) Actinic keratosis documented in this encounter Care Teams Paper Bag Machine Operator Relationship Specialty Start Date End Date Marcy Tabor MD [address] [facility] 1 [place] [address] PCP - General 06/18/11 documented as of this encounter
--- OUTSIDE RECORDS SUMMARY | 2024-01-08 12:19 | XMS_ITS | Encounter Summary ---
[place] [address] Care Team Providers Care Claim Processor Name Role Phone Marcy Tabor MD Primary Care Provider [phone] Encounter Details Date Type Department Care Team (Late st Contact Info) Description 10/20/2020 9:30 AM EDT Office Visit Obstetrics [place] [address] [place] [address] Prolapse of vaginal wall; JENNIFER (stress urinary incontinence, female); Uterovaginal prolapse, incomplete Social History Tobacco Use Types Packs/Day Years Used Date Smoking Tobacco: Never Smokeless Tobacco: Never Sex and Gender Information Value Date Recorded Sex Assigned at Not on file Gender Identity Not on file Sexual Orientation Not on file documented as of this encounter Last Filed Vital Signs Vital Sign Reading Time Taken Comments Blood Pressure 159/70 10/20/2020 9:14 AM EDT Pulse 92 10/20/2020 9:14 AM EDT Temperature 36.4 ??C (97.6 ??F) 10/20/2020 9:14 AM ED T Respiratory Rate 16 10/20/2020 9:14 AM EDT Oxygen Saturation 97% 10/20/2020 9:14 AM EDT Inhaled Oxygen Concentration - - Weight 59 kg (130 lb) 10/20/2020 9:14 AM EDT Height 165.1 cm (5' 5) 10/20/2020 9:14 AM EDT Body Mass Index 21.63 10/20/2020 9:14 AM EDT documented in this encounter Progress Notes * Timur Burns MD - 10/20/2020 9:30 AM EDT Date of Visit: 10/20/2020 Planned Surgery Date: pending Planned Procedure: [place] Colpocleisis, posterior repair, left fascia emma harvest and TO mid-urethral sling Indications/Pre-op Diagnosis: Prolapse, occult JENNIFER HISTORY OF PRESENT ILLNESS: Ms. Rice is a 70 y.o. para 3 woman last seen November 2019 for prolapse. She has been fitted for a size #3 ring pessary and subsequently switched to a #1 cube but neither were comfortable.??She continues to manage without a pessary and reduces the prolapse manually as needed. She reports it has progressed. She had planned to address this sooner but was caring for her who last year. And then was also caring for her large [place]ese Ros[place] dog until he passed also. Now she presents for her preoperative examination. ?? REVIEW OF SYMPTOMS/FUNCTIONAL STATUS: Chest pain: no Shortness of breath: no Can you walk 1/2 mile or more? yes Can you go up more than 2 flights of stairs? yes Patient can dress herself? yes Prepare meals herself? yes Bleeding disorder (h/o nose bleeds, excessive bleeding following a surgical procedure?): no Personal or Family history of blood clots?: no Sexually active?: no Last PAP smear: Aged out Past anesthesia problems?: no Past Medical History: Diagnosis Date ??? Basal cell carcinoma (BCC) ??? GERD (gastroesophageal reflux disease) ??? HTN (hypertension) ??? Hyperlipidemia ??? Osteoarthritis Past Surgical History: Procedure Laterality Date ??? TOTAL HIP ARTHROPLASTY Social History Socioeconomic History ??? Marital status: [...] file ??? Sexual activity: Not on file Other [...] Week: ??? Minutes of Exercise per Session: Stress: ??? Feeling of Stress : Social Connections: ??? Frequency of Communication with Friends and Family: ??? Frequency of Social Gatherings with Friends and Family: ??? Attends [employer] Services: ??? Active Member of Clubs or Organizations: ??? Attends Club or Organization Meetings: ??? Marital Status: Intimate Partner Violence: ??? Fear of Current or Ex-Partner: ??? Emotionally Abused: ??? Physically Abused: ??? Sexually Abused: No family history on file. No Known Allergies Outpatient Medications Marked as Taking for the 10/20/20 encounter (Office Visit) with Mya Burns MD Medication Sig Dispense Refill ??? [...] differently: Take 20 mg by mouth daily.) Blood pressure 159/70, pulse 92, temperature 36.4 ??C (97.6 ??F), resp. rate 16, height 165.1 cm (5' 5), weight 59 kg (130 lb), SpO2 97 %. A director auto is present for the examination. EXAM: General: alert/oriented x 3, NAD, cooperative ENT: No lymphadenopathy, good dentition Neck: No lymphadenopathy, no thyromegaly Chest: CTAB COR: RRR, HS I+II, no murmurs Abdomen: SNT, no scars Musculoskeletal: levator ani tone (0-5): 1, levator ani contraction (0-5): 2, no levator tenderness; lower extremity motor 5/5 bilaterally Pelvic: Cough stress test (empty supine): Neg *but was previously +ve during CMG) External Genitalia: Vulva, [place]'s and Bartholin glands normal, urethra without tenderness or mass Vagina: See POPQ Atrophic epithelium (yes/no)?: no Discharge?: no Cervix: normal Bimanual (uterus/adnexa): mobile uterus Rectovaginal: Enterocele: no Rectocele: small Anal sphincter: deferred POP Q Measurements: Aa +2 Ba +2 C -2 GH 2, 3 PB 3, 3 TVL 9 Ap -1.5 Bp -1.5 D -3 Opioid Risk Tool Female Male 1. Family history of Substance Abuse Alcohol [] 1 [] 3 Illegal Drugs [] 2 [] 3 Prescription Drugs [] 4 [] 4 2. Personal History of Substance Abuse Alcohol [] 3 [] 3 Illegal Drugs [] 4 [] 4 Prescription Drugs [] 5 [] 5 3. Age (preet box if 16-45) [] 1 [] 1 4. History of Preadolescent Sexual Abuse [] 3 [] 0 5. Psychological Disease Attention Deficit Disorder, Obsessive Compulsive D/o, Bipolar, Schizophrenia [] 2 [] 2 Depression [] 1 [] 1 TOTAL: Comments about ORT in relation to this patient: Opioid Risk Category: low risk 0-3 The patient has signed the opioid consent in anticipation of requiring opioid pain medications following their surgery. IMPRESSION: Patricia Rice is a 70 y.o. woman with stage 3 POP and occult JENNIFER who desires surgical repair. The following surgical options were reviewed with the patient for treatment of her uterovaginal prolapse: 1. Vaginal hysterectomy with [place] ligament (uterosacral or sacrospinous) repair, with 70-80% success at 5 years out from surgery. 2. [place] Colpocleisis, with closure of the vagina, with 90-95% success at 5 years out from surgery. We discussed that this closed the vagina and that vaginal sexual intercourse is no longer possible. We discussed that this would have the shortest anesthetic time and lower risks. - she desires an obliterative procedure ?? In view of the possibility of unmasking occult JENNIFER following prolapse repair, we discussed some of the findings of the OPUS trial - 27% versus 43% of previously continent women had JENNIFER after sling versus no-sling. - 72% women with POP-reduced positive SALES DEVELOPMENT SPECIALIST had JENNIFER post-op if they did not have a sling placed. - 5% of the women in the no-sling group underwent a sling surgery within the next year while sling removal surgery was required in 2.4% of women in the sling group. ??We discussed the surgery for stress urinary incontinence would involve a sling being placed at the level of the midurethra with permanent mesh material. - she desires to avoid mesh We also discussed autologous fascial slings involving a strip of fascia being harvested from eitherher abdominal wall or her lateral thigh. I informed her there is a roughly 50% chance of needing todo clean intermittent self- catheterization for 1-2 weeks post-op or until she can empty to completion. We also discussed the risk of urge and urge incontinence which usually improves with time or medication. We discussed that a minimally invasive fascia emma harvesting technique is associated with minimal donor site morbidity and satisfactory preservation of function. ??marek et al. Knee Surgery,Sport Traumatol Arthrosc. 2019;27(1):245-50. - she is interested in a autologous sling Consent signed for [place] Colpocleisis, posterior repair, left fascia emma harvest and mid-urethral sling - would plan for trans-obturator autologous mid-urethral sling PLAN: ??? We will proceed with the above procedures on (date pending). ??? Anesthesia preference: per anesthesia and patient. ??? Pre- and post-op patient education sheets are printed, personalized, and reviewed with her in detail during this visit. ??? (x) Medications and herbal preparations reviewed Discussed: (x) Discontinuation of all herbal preparations, vitamin E 7-10 days preop (x) ASA, NSAIDS, Plavix: n/a (x) Hormones: n/a ?? (x) Discontinue Solid foods at midnight ?? (x) Clear liquids (water, apple juice, roshan vasiliy, or black coffee) may be consumed until 2 hours prior to scheduled procedure. PROCEDURE CONSENT: (Signed) As part of the consent for surgery, we reviewed that there are health care personnel who are trainees at [facility], which includes medical students, resident physicians, and fellows. As a part of the start of any surgery, a pelvic exam is usually performed by the attending physician, which then may be repeated by the trainee with supervision. The patient does give her permission for a trainee to perform an exam under anesthesia. Timur Burns MD Division of Female Pelvic Medicine and Reconstructive Surgery documented in this encounter Plan of Treatment Upcoming Encounters Date Type Department Care Team (Late st Contact Info) Description 04/09/2024 2:00 PM EDT Office Visit Dermatology at [place] [address] [place] [address] Mark Moreira MD [address] [facility] [place] [address] documented as of this encounter Visit Diagnoses Diagnosis Prolapse of vaginal wall Unspecified prolapse of vaginal barron JENNIFER (stress urinary incontinence, female) Female stress incontinence Uterovaginal prolapse, incomplete documented in this encounter Care Teams Claim Processor Relationship Specialty Start Date End Date Marcy Tabor MD [address] [facility] 1 [place] [address] PCP - General 06/18/11 documented as of this encounter
--- OUTSIDE RECORDS SUMMARY | 2024-01-08 12:19 | XMS_ITS | Encounter Summary ---
[place] [address] Care Team Providers Care Disability Aide Name Role Phone Marcy Tabor MD Primary Care Provider [phone] Reason for Visit * Reason Comments Skin Lesion Encounter Details Date Type Department Care Team (Late st Contact Info) Description 01/02/2015 2:45 PM EDT Office Visit Dermatology at [address] [id number] Mark Moreira MD [address] [place] [address] DERMATOLOGY [place], [place] [id number] [place] (actinic keratosis) Discharge Disposition: Home Social History Tobacco Use Types Packs/Day Years Used Date Smoking Tobacco: Never Sex and Gender Information Value Date Recorded Sex Assigned at Not on file Gender Identity Not on file Sexual Orientation Not on file documented as of this encounter Patient Instructions * Patient Instructions* Jing Thomas LPN - 01/02/2015 2:45 PM EDT [facility] Actinic Keratosis: After Your Visit Your Care Instructions Actinic keratosis is a skin growth caused by sun damage. It can turn into skin cancer, but this isn't common. Actinic keratoses, also called solar keratoses, are small red, brown, or skin-colored scaly patches. They are most common on the face, neck, hands, and forearms. Your doctor can remove these growths by freezing or scraping them off or by putting medicines on them. Follow-up care is a pan part of your treatment and safety. Be sure to make and go to all appointments, and call your doctor if you are having problems. It's also a good idea to know your test resultsand keep a list of the medicines you take. How can you care for yourself at home? ?? If your doctor removes the growth, clean the area with soap and water 2 times a day unless your doctor gives you different instructions. Don't use hydrogen peroxide or alcohol, which can slow healing. ?? You may cover the wound with a thin layer of petroleum jelly, such as Vaseline, and a nonstick bandage. To prevent actinic keratosis ?? Always wear sunscreen on exposed skin. Make sure the sunscreen blocks ultraviolet rays (both UVAand UVB) and has a sun protection factor (SPF) of at least 15. Use it every day, even when it is cloudy. Some doctors may recommend a higher SPF, such as 30. ?? Wear long sleeves, a hat, and pants if you are going to be outdoors for a long time. ?? Avoid the sun between 10 a.m. and 4 p.m., the peak time for UV rays. ?? Do not use tanning booths or sunlamps. When should you call for help? Watch closely for changes in your health, and be sure to contact your doctor if: ?? The areas that were treated are red, drain pus, or have red streaks leading from them. ?? You see other growths that do not go away. ?? You do not get better as expected. Where can you learn more? Visit our health information library at [email or web address] You can also view health information on [employer] [employer], your personal patient account. Log in or sign up today. Enter L364 in the search box to learn more about Actinic Keratosis: After Your Visit. ?? [id number] [employer]. Care instructions adapted under license by [facility]. This care instruction is for use with your licensed healthcare professional. If you have questions about a medical condition or this instruction, always ask your healthcare professional. [employer] disclaims any warranty or liability for your use of this information. Content Version: 10.4.818461; Current as of: January 13, 2014 documented in this encounter Progress Notes * Mark Moreira MD - 01/02/2015 3:07 PM EDT Problems: 1. New skin lesion of concern. 2. History of probable Chavez disease versus superficial BCCA, left lateral canthus, status post six weeks of Aldara cream treatment, November 2011. Patricia follows up and is doing well. She has noticed a couple new lesions of concern. Her hairdresser pointed them out and really wanted her to have them checked. Physical examination reveals actinic keratoses present, one on her right cheek, one on the right upper cutaneous lip, and one on the left anabaptism. Assessment and Plan: Actinic keratoses. a. LN2 times two applied to all three sites. b. I expressed the importance of having these treated in a timely fashion. c. I recommended return to clinic p.r.n. for new lesions/concerns. COPY: Marcy Tabor M.D. documented in this encounter Plan of Treatment Upcoming Encounters Date Type Department Care Team (Late st Contact Info) Description 04/09/2024 2:00 PM EDT Office Visit Dermatology at [address] [place] [address] Mark Moreira MD [address] [facility] [place] [address] documented as of this encounter Visit Diagnoses Diagnosis AK (actinic keratosis) Actinic keratosis documented in this encounter Care Teams Disability Aide Relationship Specialty Start Date End Date Marcy Tabor MD [address] [place] [address] PCP - General 06/18/11 documented as of this encounter
--- OUTSIDE RECORDS SUMMARY | 2024-01-08 12:19 | XMS_ITS | Encounter Summary ---
[place] [address] Care Team Providers Care Tufter Hand Name Role Phone Marcy Tabor MD Primary Care Provider [phone] Encounter Details Date Type Department Care Team (Late st Contact Info) Description 09/10/2018 8:30 AM EDT Office Visit Dermatology at [address] [address] Mark Moreira MD [address] [place] [address] DERMATOLOGY [place], [place] [id number] History of SCC (squamous cell carcinoma) of skin; AK (actinic keratosis) Social History Tobacco Use Types Packs/Day Years Used Date Smoking Tobacco: Never Smokeless Tobacco: Never Sex and Gender Information Value Date Recorded Sex Assigned at Not on file Gender Identity Not on file Sexual Orientation Not on file documented as of this encounter Progress Notes * Mark Moreira MD - 09/10/2018 8:30 AM EDT PROBLEM: 1. Repeat skin checkup. 2. 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 3. 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 Patricia follows up and has noted some new lesions of concern. She is back for repeat check of her face. She continues to enjoy half-way from [employer]. Physical examination reveals about 6 actinic keratoses that have developed on the forehead the cheeks the nose. There is no evidence of any malignant lesions on facial examination today. She does notdesire examination of the chest or back. Assessment plan: Actinic keratoses facial 1. LN 2 x 2 applied to each of 5 sites 2. Recommend I see her again another month for repeat check 3. Discussed the possible need for a course of 5-FU given her diffuse facial actinic damage History of nonmelanoma cutaneous malignancies 1. No evidence of recurrence 2. Patient reassured CC: Marcy Tabor MD ?? documented in this encounter Plan of Treatment Upcoming Encounters Date Type Department Care Team (Late st Contact Info) Description 04/09/2024 2:00 PM EDT Office Visit Dermatology at [address] [place] [phone] Mark Moreira MD [address] [facility] [place] [address] documented as of this encounter Visit Diagnoses Diagnosis History of SCC (squamous cell carcinoma) of skin Personal history of other malignant neoplasm of skin AK (actinic keratosis) Actinic keratosis documented in this encounter Care Teams Tufter Hand Relationship Specialty Start Date End Date Marcy Tabor MD [address] [facility] [address] [place] [address] PCP - General 06/18/11 documented as of this encounter
--- OUTSIDE RECORDS SUMMARY | 2024-01-08 12:19 | XMS_ITS | Encounter Summary ---
[place] [address] Care Team Providers Care Vessel Scrapper Name Role Phone Marcy Tabor MD Primary Care Provider [phone] Reason for Visit * Reason Onset Date Comments Follow-up 01/30/2021 Encounter Details Date Type Department Care Team (Late st Contact Info) Description 01/30/2021 Telephone Obstetrics [place] [address] Matilde Sandy RN Follow-up Social [...] Miscellaneous Notes * Telephone Encounter - Matilde Sandy, JACINTO - 01/30/2021 11:40 AM EDT Pt had surgery on 12/20/20 and had COLPOCLEISIS\ LE FORT (WRVU 8.28) (N/A) COLPORRHAPHY, POST RECTOCELE WITH OR W\O PERINEORRHAPHY (WRVU 11.5) (N/A) URETHRAL SUSPENSION, SLING\FASCIA OR SYNTHETIC . Pt calls today stating her post op check was rescheduled for another 3 weeks and was hoping to stopthe restrictions. Pt has had no issues and will be 6 weeks tomorrow. Pt may start to increase activity as tolerated to still avoid heavy lifting may increase to 25 lbs. Pt may work in garden but breaks and avoid prolong standing or sitting. Pt in agreement and understands. documented in this encounter Plan of Treatment Upcoming Encounters Date Type Department Care Team (Late st Contact Info) Description 04/09/2024 2:00 PM EDT Office Visit Dermatology at [place] [address] [place] [address] Mark Moreira MD [address] [place] [address] documented as of this encounter Visit Diagnoses Not on filedocumented in this encounter Care Teams Vessel Scrapper Relationship Specialty Start Date End Date Marcy Tabor MD [address] [facility] [address] [place] [address] PCP - General 06/18/11 documented as of this encounter
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
--- OUTSIDE RECORDS SUMMARY | 2024-01-08 12:19 | XMS_ITS | Encounter Summary ---
[place] [address] Care Team Providers Care Supply Chain Business Analyst Name Role Phone Marcy Tabor MD Primary Care Provider [phone] Encounter Details Date Type Department Care Team (Late st Contact Info) Description 09/29/2019 Telephone Obstetrics [place] [phone] Michelle Vickers Social History Tobacco Use Types Packs/Day Years [...] 2:00 PM EDT Office Visit Dermatology at [place] [address] [facility] [place] [address] Mark Moreira MD [address] [facility] [place] [address] documented as of this encounter Visit Diagnoses Not on filedocumented in this encounter Care Teams Supply Chain Business Analyst Relationship Specialty Start Date End Date Marcy Tabor MD [address] [place] [address] [place], [place] [address] PCP - General 06/18/11 documented as of this encounter
--- OUTSIDE RECORDS SUMMARY | 2024-01-08 12:19 | XMS_ITS | Encounter Summary ---
[place] [address] Care Team Providers Care Slumber Room Attendant Name Role Phone Marcy Tabor MD Primary Care Provider [phone] Encounter Details Date Type Department Care Team (Late st Contact Info) Description 01/29/2022 8:00 AM EDT TH Visit (TeleHealth) Obstetrics [place] [address] [place] [address] Urinary incontinence, urge Social History Tobacco Use [...] Sign Reading Time Taken Comments Blood Pressure - - Pulse - - Temperature - - Respiratory Rate - - Oxygen Saturation - - Inhaled Oxygen Concentration - - Weight 57.6 kg (127 lb) 01/21/2022 8:57 AM EDT Height 162.6 cm (5' 4) 01/21/2022 8:57 AM EDT Body Mass Index 21.8 01/21/2022 8:57 AM EDT documented in this encounter Progress Notes * Yoanna Dumont LNA - 01/29/2022 8:00 AM EDT ____ Patient not reached __x__Patient reached and the following information was reviewed/obtained per protocol. _x__Confirmed patient name and date of _x__Confirmed tele med appt (Virtual visit) is downloaded and functioning _x__Confirmed location of patient- TeleVisit is taking place in [place]_x_ [place]__[place]__ [place]__ If not on myD, working on signing up for my DH Confirmed has completed any pre-visit questionnaires If has not received required previsit questionnaires, send via [facility] _x__Reviewed medications, allergies, pharmacy, pain/depression, education _x__Documented height/weight/LMP Other information or concerns: * Timur Burns MD - 01/29/2022 8:00 AM EDT Female Pelvic Medicine and Reconstructive Surgery @ [facility] Telephone Follow-up Office Visit Patient Name: Patricia Rice Patient Primary Care Provider: Marcy Tabor MD Patricia Rice verbally consented to conduct this clinical encounter by telephone. She acknowledges that her insurance may be billed for the care provided, similar to an in person appointment. She is currently at home in [place]. Prior to beginning the visit, I confirmed the patients name and date of . I obtained the patient's consent to receiving health care services at [facility] through telemedicine. We discussed the opportunities and [...] available for patient's review in [facility] patientportal, [facility]-. Patient Active Problem List Diagnosis Code ??? Actinic keratosis L57.0 ??? 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 AK (actinic keratosis) L57.0 ??? History of SCC (squamous cell carcinoma) of skin Z85.828 ??? Prolapse of female pelvic organs N81.9 ??? JENNIFER (stress urinary incontinence, female) N39.3 History of Present Illness: Ms. Rice is a 72 y.o. old woman, last seen 02/07/21 for post-op check. On 12/20/20 she underwent [place] Colpocleisis, posterior repair, TO mid-urethral sling (Desara SL). Post-op her only complaint was ongoing OAB/UUI for which she had plans to attend pelvic floor PT [place], [place]. She now reports improvement and only has once in a blue longoria urge UI. She has a regular normal BM. No FI. She denies prolapse symptoms. ?? ICIQ-UI Short Form How often do you leak urine? ?? Never 0 1?? About once a week or less often 1 ?? 2-3 times a week 2 ?? About once a day 3 ?? Several times a day 4 ?? All the time 5 ?? How much urine do you usually leak? ?? None 0 1 A small amount 1 ?? A moderate amount 2 ?? A large amount 3 ?? Overall, how much does leaking interfere with your everyday life???2 (0 not at all, 10 a great deal) ?? ICIQ Sum the scores:??4 ?? When does urine leak? (Check all that apply) ?Never - Urine does not leak ??x ??Leaks before you can get to the toilet ?Leaks when you cough or sneeze ?Leaks when you are asleep ?Leaks when you are physically active/exercising ?Leaks when you have finished urinating or are dressed ?Leaks for no obvious reason ?Leaks all the time ?? Past Medical History: Diagnosis Date ??? Basal cell carcinoma (BCC) ??? GERD (gastroesophageal reflux disease) ??? HTN (hypertension) ??? Hyperlipidemia ??? Osteoarthritis Past Surgical History: Procedure Laterality Date ??? PRO CLOSURE OF VAGINA N/A 12/20/2020 COLPOCLEISIS\ LE FORT (WRVU 8.28) performed by [facility]ur [facility] MD [facility] ??? PRO POST COLPORRHAPHY RECTOCELE W/WO PERINEORRHAPHY N/A 12/20/2020 COLPORRHAPHY, POST RECTOCELE WITH OR W\O PERINEORRHAPHY (WRVU 11.5) performed by [facility]ur Burns MD at [facility] ??? PRO SLING OPER STRES INCONTINENCE N/A 12/20/2020 URETHRAL SUSPENSION, SLING\FASCIA OR SYNTHETIC (WRVU 12.13) performed by [facility]ur Burns MD at [facility] ??? TOTAL HIP ARTHROPLASTY OB History Para Term AB Living 3 3 2 1 0 3 SAB IAB Ectopic Multiple Live Births 0 0 0 0 0 # Outcome Date GA Lbr Haim/2nd Weight Sex Delivery Anes PTL Lv 3 2 Term 1 Term Outpatient Medications Marked as Taking for the 01/29/22 encounter (TH Visit (TeleHealth)) with Timur Burns MD Medication Sig Dispense Refill ??? SF 5000 Plus 1.1 % Cream See Admin Instructions. ??? triamcinolone (Kenalog) 0.1 % Cream APPLY TOPICALLY TO FOOT TWICE DAILY ??? acetaminophen (Tylenol) 325 mg Tablet Take 2 tablets by mouth every 6 hours as needed for Pain.30 tablet 1 ??? ibuprofen (Advil;Motrin) 600 mg Tablet Take 1 tablet by mouth every 6 hours. 30 tablet 12 ??? multivitamin (THERAGRAN) Tablet Take 1 tablet by mouth daily. ??? ascorbic acid, vitamin C, (VITAMIN C) 500 mg Tablet, Chewable Take by mouth daily. ??? cholecalciferol, Vitamin D3, 50 mcg (2,000 unit) Capsule Take 5,000 Units by mouth daily. ??? atenolol-chlorthalidone (TENORETIC) 100-25 mg Tablet Take 0.5 tablets by mouth daily. ??? omeprazole (PRILOSEC) 20 mg capsule No Known Allergies OBJECTIVE: Not performed Impression: Ms. Rice is a .72 y.o. woman who is one year s/p [place] Colpocleisis, posterior repair, TO mid-urethral sling (Desara SL). - OAB/UUI effectively managed with PT and behavioral measures Recommendations: Based on the patients expressed goals for management I have recommended the following: ?? Continue behavioral measures for OAB/UUI. F/u PRN. I spent 15 minutes total on the call with the patient, with 15 minutes of the time spent discussingher diagnosis and reviewing options for treatment. Call start: [phone] Call end: [phone] Timur Burns MD Division of Female Pelvic Medicine/Reconstructive Surgery documented in this encounter Plan of Treatment Upcoming Encounters Date Type Department Care Team (Late st Contact Info) Description 04/09/2024 2:00 PM EDT Office Visit Dermatology at [place] [address] [facility] [place] [id number] Mark Moreira MD [address] [facility] [place] [address] documented as of this encounter Visit Diagnoses Diagnosis Urinary incontinence, urge Urge incontinence documented in this encounter Care Teams Slumber Room Attendant Relationship Specialty Start Date End Date Marcy Tabor MD [address] [facility] [address] [place] [address] PCP - General 06/18/11 documented as of this encounter
--- OUTSIDE RECORDS SUMMARY | 2024-01-08 12:19 | XMS_ITS | Encounter Summary ---
Author Organization [facility] [place] [address] Care Team Providers Care Lock Tender Chief Operator Name Role Phone Marcy Tabor MD Primary Care Provider [phone] Encounter Details Date Type Department Care Team (Latest Contact Info) Description 10/07/2023 10:09 PM EDT - 10/07/2023 11:59 PM EDT Hospital [place] [phone] Discharge Disposition: Home Social History Tobacco Use Types Packs/Day Years Used Date Smoking Tobacco: Never Smokeless Tobacco: Never Alcohol Use Standard Drinks/Week Comments Never 0 (1 standard drink = 0.6 oz pur e alcohol) Sex and Gender Information Value Date Recorded Sex Assigned at Not on file Gender Identity Not on file Sexual Orientation Not on file documented as of this encounter Medications at Time of Discharge Medication Sig Dispensed Refills Start Date End Date amLODIPine (Norvasc) 5 mg tablet Take 1 tablet by mouth Daily at Noon. 09/12/2023 fluorouraciL (EFUDEX) 5 % Cream Apply to hands twice daily for 2 weeks and apply to face twice daily for 1 week then 3 weeks off for total of 3 cycles 40 g 10/07/2023 losartan-hydroCHLOROthia zide (Hyzaar) 100-25 mg tablet 03/17/2023 acetaminophen (Tylenol) 325 mg Tablet Take 2 [...] daily. omeprazole (PRILOSEC) 20 mg capsule 04/22/2005 documented as of this encounter Plan of Treatment Upcoming Encounters Date Type Department Care Team (Late st Contact Info) Description 04/09/2024 2:00 PM EDT Office Visit Dermatology at [place] [address] [place] [phone] Mark Moreira MD [address] [facility] [place] [address] documented as of this encounter Procedures Procedure Name Priority Date/Time Associated Diagnosis Comments SURGICAL PATHOLOGY REPORT Routine 10/07/2023 4:55 PM EDT documented in this encounter Results * Surgical Pathology Report (10/07/2023 4:55 PM EDT) FINAL DIAGNOSIS (AP) [id number] ? Location: [facility] The signing pathologist has (i) examined the relevant preparation(s) for the specimen(s) and (ii) rendered or confirmed the diagnosis(es). . ?Surgical Pathology DIAGNOSIS Lateral right arm, skin shave biopsy: - ??Squamous cell carcinoma, well differentiated, ?? present at the deep specimen edge Electronically signed by: ?Ani Ureña MD Verified: ??10/20/2023 11:37 ??Dermatopatholog ist Performed at: ??-[facility] Dept. of Pathology, [place] [address] Councilperson: Abdoul Wilkerson MD, FCAP, ??CLIA Certificate: [id number] SPECIMEN(S) SUBMITTED A - ??ED&C Lateral Right Arm CLINICAL INFORMATION Hyperkeratotic nodule SCCA/BCCA treated with shave E, D & C x 3, SCCA SPECIMEN PROCESSING A - Labeled/Fixative: Patient demographics, formalin. Quantity/Size: ??Single, 1 x 1 x 0.6 cm. Tissue Description: Shave of white skin 0.5 x 0.5 cm valadez hyperkeratotic skin nodule. Sections/Processi ng: Inked, quadrisected and entirely submitted in 1 cassette labeled A1. ??SM 10/20/2023 11:37 AM EDT [facility] 10/07/2023 4:55 PM EDT Mark Moreira MD PATHOLOGY/CYTOLOGY O RDERABLES [facility] [place] [address] documented in this encounter Visit Diagnoses Not on filedocumented in this encounter Care Teams Lock Tender Chief Operator Relationship Specialty Start Date End Date Marcy Tabor MD [address] [place] [address] PCP - General 06/18/11 documented as of this encounter
--- OUTSIDE RECORDS SUMMARY | 2024-01-08 12:19 | XMS_ITS | Encounter Summary ---
Author [place] [address] Care Team Providers Care Occupational Therapy Teacher Name Role Phone Marcy Tabor MD Primary Care Provider [phone] Encounter Details Date Type Department Care Team (Latest Contact Info) Description 04/30/2023 Travel Social History Tobacco Use Types Packs/Day [...] 2:00 PM EDT Office Visit Dermatology at [place] [address] [facility] [place] [address] Mark Moreira MD [address] [facility] [place] [address] documented as of this encounter Visit Diagnoses Not on filedocumented in this encounter Care Teams Occupational Therapy Teacher Relationship Specialty Start Date End Date Marcy Tabor MD [address] [place], [place] [id number] PCP - General 06/18/11 documented as of this encounter
--- OUTSIDE RECORDS SUMMARY | 2024-01-08 12:20 | XMS_ITS | Encounter Summary ---
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 Role Phone Marcy Tabor MD Primary Care Provider [phone] Reason for Visit * Reason Comments Dermatitis Encounter Details Date Type Department Care Team (Late st Contact Info) Description 06/18/2011 4:00 PM EST Office Visit Dermatology [address] [place] [address] [address] [place] [address] Mark Moreira MD [address] [facility] [place] [address] Actinic keratosis (Primary Dx) Social History Tobacco Use Types Packs/Day Years Used Date Smoking Tobacco: Never Sex and Gender Information Value Date Recorded Sex Assigned at Not on file Gender Identity Not on file Sexual Orientation Not on file documented as of this encounter Progress Notes * Mark Moreira MD - 06/18/2011 4:48 PM EST Problem: Left lateral canthal rash. Patricia follows up and is now 61. She states that for two years she has had a growing erythematous patch on the left lateral canthus which has not responded to Triamcinolone Cream, that she had leftover from a visit with me in 1998, nor has it responded to Mupirocin Ointment. Physical examination reveals a blue eyed, fair skinned woman with moderate solar elastotic damage and an irregular erythematous patch with overlying crusting and scabbing on the left lateral canthal area. It extends from the actual left lateral canthus laterally to the temporal hairline. The rest of the facial examination is unremarkable. Assessment & Plan: Erythematous patch with hyperkeratosis left lateral canthus. a. Differential includes actinic keratosis but more likely superficial BCCa versus Chavez's Disease. b. Today a 4mm punch biopsy obtained from site for pathologic analysis. Closure with 4-0 ethilon. c. Suture removal in one week and then will discuss biopsy results. Would likely pursue Aldara Cream if biopsy is as I expect. d. RTC in one week. 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
== END 2024-01-08 12:18 | disposition home or self-care (01) ==
LOC: LBN 12:17
PROVIDERS: PCP Family Medicine; Visit Provider Family Medicine
DX: L57.0 Actinic keratosis (principal)
CPT/HCPCS: 88305

== ENCOUNTER → 2024-02-04 14:25 | Outpatient (BNVA) | payer MEDICARE, SELFPAY | PROVIDERS: PCP Family Medicine; Referring Provider Family Medicine; Visit Provider Podiatrist | DX: I70.203 Unspecified atherosclerosis of native arteries of extremities, bilateral legs (principal); M79.671 Pain in right foot; M79.672 Pain in left foot; G62.9 Polyneuropathy, unspecified; M21.612 Bunion of left foot; R20.2 Paresthesia of skin; R79.89 Other specified abnormal findings of blood chemistry; A69.20 Lyme disease, unspecified | CPT/HCPCS: 99213 ==

== ENCOUNTER → 2024-03-31 08:57 | Outpatient (BNVA) | payer MEDICARE, SELFPAY | PROVIDERS: PCP Family Medicine; Referring Provider Family Medicine; Visit Provider Physical Therapy Assistant | DX: I73.9 Peripheral vascular disease, unspecified (principal) | CPT/HCPCS: 93922 ==

== ENCOUNTER 2024-05-12 03:14 | Outpatient (CLI) | payer MEDICARE, SELFPAY ==
[2024-05-12 08:50] LABS: ALT 20 U/L (14-59); AST 17 U/L (15-37); Albumin 3.9 g/dL (3.4-5.0); Alkaline Phosphatase 94 U/L (46-116); Anion Gap 8.4 mmol/L (3-11); BUN 15 mg/dL (7-18); Bilirubin, Total 0.31 mg/dL (0.2-1.0); CO2 28.6 mmol/L (21.0-32.0); Calcium 9.3 mg/dL (8.5-10.1); Chloride 103 mmol/L (98-107); Estimated GFR 58.39 (mL/min/1.73m2); Glucose 98 mg/dL (74-106); Potassium 3.7 mmol/L (3.5-5.1); Sodium 140 mmol/L (136-145); Total Protein 7.4 g/dL (6.4-8.2)
== END 2024-05-12 03:15 | disposition home or self-care (01) ==
PROVIDERS: PCP Family Medicine; Visit Provider Family Medicine
DX: I10 Essential (primary) hypertension (principal)
CPT/HCPCS: 36415; 80053

== ENCOUNTER 2024-09-17 00:39 | Outpatient (CLI) | payer MEDICARE, SELFPAY ==
--- NOTE | 2024-09-17 14:37 | DI.MAMMO_ITS ---
Exam(s) MAMMO SCREENING EXAM: MAMMO SCREENING CLINICAL HISTORY: screening,Z12.39. TECHNIQUE: Bilateral full field digital CC and MLO mammographic images were obtained with 3D tomosyn thesis and utilizing computer aided detection (CAD). COMPARISON: Prior mammograms were reviewed. FINDINGS: The fibroglandular tissue pattern is again noted be very dense, this somewhat decreasing the sensitiv ity of the mammogram for finding hidden underlying lesions. There are no obvious new spiculated masses nor malignant appearing microcalcification groups. There is no significant architectural distortion nor skin thickening-retraction. IMPRESSION: No radiographic evidence of malignancy. BI-RADS Category 1 - Negative Breast Density - Category D - Extremely dense Breast density Category C or D implies that the patient has dense breast tissue. Dense breast tissue can make it harder to find cancer on a mammogram. Dense breast tissue is also associated with an incr eased risk of breast cancer. This information about the result of the mammogram report was provided to the patient to raise their awareness. Use this report when you speak with the patient about their risks for breast cancer, which includes their family history. At that time, you may recommend additional screening tests (Ultrasoun d or MRI) as these tests may add significant information. A negative radiographic report should not delay biopsy if a dominant or clinically suspicious mass is present. Up to ten percent of cancers are not identified on mammography. A negative report may reinforce clinical impression. Adenosis and dense breasts may obscure an underlying neoplasm. False positive reports average 6 to 10%. Patient will receive a letter notifying them of these results.
== END 2024-09-17 00:59 ==
LOC: DI 00:39
PROVIDERS: PCP Family Medicine; Visit Provider Family Medicine
DX: Z12.31 Encounter for screening mammogram for malignant neoplasm of breast (principal); R92.343 Mammographic extreme density, bilateral breasts
CPT/HCPCS: 77063; 77067

== ENCOUNTER 2025-04-05 09:20 | Outpatient (CLI) | payer MEDICARE, SELFPAY ==
[2025-04-05 13:16] LABS: ALT 20 U/L (14-59); AST 19 U/L (15-37); Albumin 4.0 g/dL (3.4-5.0); Alkaline Phosphatase 78 U/L (46-116); Anion Gap 10.7 mmol/L (3-11); BUN 11 mg/dL (7-18); Bilirubin, Total 0.4 mg/dL (0.2-1.0); CO2 26.3 mmol/L (21.0-32.0); Calcium 9.7 mg/dL (8.5-10.1); Chloride 97 mmol/L (98-107); Estimated GFR 58.02 (mL/min/1.73m2); Glucose 92 mg/dL (74-106); Potassium 4.0 mmol/L (3.5-5.1); Sodium 134 mmol/L (136-145); Total Protein 7.2 g/dL (6.4-8.2); Vitamin B12 753 pg/mL (193-986)
[2025-04-06 13:03] LABS: Hepatitis C Ab w Rflx HCV PCR Negative (Negative)
== END 2025-04-05 09:21 | disposition home or self-care (01) ==
LOC: LOS 09:20
PROVIDERS: PCP Family Medicine; Visit Provider Family Medicine
DX: Z11.59 Encounter for screening for other viral diseases (principal); K21.9 Gastro-esophageal reflux disease without esophagitis; I10 Essential (primary) hypertension
CPT/HCPCS: 36415; 80053; 86803; 82607

== ENCOUNTER 2025-05-27 12:16 | Outpatient (CLI) | payer MEDICARE, SELFPAY ==
[2025-05-27 16:20] LABS: ALT 13 U/L (10-49); AST 21 U/L (<34); Albumin 4.2 g/dL (3.2-5.0); Alkaline Phosphatase 74 U/L (46-116); Anion Gap 8.8 mmol/L (3-11); BUN 16 mg/dL (9-23); Bilirubin, Total 0.2 mg/dL (0.2-1.2); CO2 26.2 mmol/L (20.0-31.0); Calcium 9.6 mg/dL (8.3-10.6); Chloride 98 mmol/L (98-107); Glucose 102 mg/dL (74-106); Potassium 3.9 mmol/L (3.5-5.1); Sodium 133 mmol/L (136-145); Total Protein 6.8 g/dL (5.7-8.2)
== END 2025-05-27 12:17 | disposition home or self-care (01) ==
LOC: LOS 12:16
PROVIDERS: PCP Family Medicine; Visit Provider Family Medicine
DX: K21.9 Gastro-esophageal reflux disease without esophagitis (principal); I10 Essential (primary) hypertension
CPT/HCPCS: 36415; 80053